=== PATIENT | male | born 1960 | race Caucasian/White ===

== ENCOUNTER 2020-01-22 18:52 | Inpatient (IN) | payer MEDICAID ==
[~2020-01-22] VITALS: Ht 165.1 cm; Wt 87.1 kg
[2020-01-22 19:15] VITALS: BP 122/75
[2020-01-22] MEDS ORDERED: Cefepime HCl 1 GM in NS 55 ML IV ONE (19:15)
[2020-01-22] MEDS ORDERED: Terbutaline 1mg/ml Inj SUBQ ONE (19:15)
[2020-01-22 20:00] VITALS: BP 122/65
[2020-01-22 20:37] LABS: APPEARANCE,URINE CLEAR; BILIRUBIN, URINE NEGATIVE (NEGATIVE); COLOR,URINE PALE YELLOW; GLUCOSE, URINE (UA) NEGATIVE (NEGATIVE); KETONES,URINE NEGATIVE (NEGATIVE); LEUKOCYTE ESTERASE ,URINE NEGATIVE (NEGATIVE); NITRITE,URINE NEGATIVE (NEGATIVE); PH,URINE 5 (4.5-8.0); PROTEIN,URINE NEGATIVE (NEGATIVE); UROBILINOGEN,URINE NORMAL MG/DL (0.0-1.0)
[2020-01-22 20:39] LABS: BASOPHILS % (AUTO) 0.9 % (0.0-2.0); HEMATOCRIT 46.1 % (42.0-52.0); HEMOGLOBIN 15.3 G/DL (14.2-18.0); LYMPHOCYTES % (AUTO) 12.3 % (20.0-45.0); MEAN CORPUSCULAR VOLUME 92 FL (80-99); MONOCYTES % (AUTO) 6.6 % (1.0-10.0); NEUTROPHILS % (AUTO) 78.3 % (45.0-75.0); PLATELET COUNT 154 K/UL (150-450); RED BLOOD COUNT 4.99 M/UL (4.70-6.10); RED CELL DISTRIBUTION WIDTH 12.2 % (11.6-14.8); WHITE BLOOD COUNT 10.3 K/UL (4.8-10.8)
[2020-01-22 21:00] VITALS: BP 114/66
[2020-01-22] MEDS ORDERED: LORazepam Inj 2mg/ml 1ml IV PRN (21:15)
[2020-01-22] MEDS ORDERED: Promethazine/Codeine 5ml UD ORAL PRN (21:15)
[2020-01-22] MEDS ORDERED: Albuterol/Ipratropium 3ml neb HHN PRN (21:15)
[2020-01-22 21:25] LABS: ALANINE AMINOTRANSFERASE 54 U/L (12-78); ALBUMIN 4.2 G/DL (3.4-5.0); ALBUMIN/GLOBULIN RATIO 1.4 (1.0-2.7); ALKALINE PHOSPHATASE 76 U/L (46-116); ANION GAP 12 mmol/L (5-15); ASPARTATE AMINO TRANSFERASE 30 U/L (15-37); BILIRUBIN,TOTAL 0.6 MG/DL (0.2-1.0); BLOOD UREA NITROGEN 27 mg/dL (7-18); CALCIUM 9.3 MG/DL (8.5-10.1); CARBON DIOXIDE 25 MMOL/L (21-32); CHLORIDE 104 MMOL/L (98-107); CKMB 1.6 NG/ML (0.0-3.6); CREATINE KINASE 100 U/L (26-308); POTASSIUM 4.3 MMOL/L (3.5-5.1); SODIUM 141 MMOL/L (136-145)
[2020-01-22 22:00] VITALS: BP 102/64
[2020-01-22] MEDS ORDERED: Piperacillin/Tazobactam 3.375 GM in D5W 55 ML IVPB SCH (22:00)
[2020-01-22 23:00] VITALS: BP 98/64
--- NOTE | 2020-01-22 23:00 | Emergency Room Report ---
History of Present Illness General Chief Complaint: Upper Respiratory Illness Source: Patient, EMS Present Illness HPI Patient is a 59-year-old male who presents after increased cough and difficulty with breathing. Patient was sent in from a nursing facility in [place]. Patient had been having nonproductive cough. Prior history of COPD as well as psychosis. He is from a locked facility. Denies any fever. Allergies: Coded Allergies: No Known Allergies (Unverified , 01/22/20) COVID-19 Screening Contact w/high risk pt: No Recent Travel to affected area: No Experienced COVID-19 symptoms?: No Patient History Past Medical History: see triage record Reviewed Nursing Documentation: PMH: Agreed; PSxH: Agreed Nursing Documentation-PMH Past Medical History: No History, Except For Hx Hypertension: Yes Hx COPD: Yes Review of Systems All Other Systems: negative except mentioned in HPI Physical Exam Vital Signs Date Time Temp Pulse Resp B/P (MAP) Pulse Ox O2 Delivery O2 Flow Rate FiO2 01/22/20 18:51 98.8 112 22 142/80 (100) 92 Room Air Sp02 EP Interpretation: reviewed, normal General Appearance: normal inspection, alert, GCS 15, mild distress Head: atraumatic ENT: normal ENT inspection, hearing grossly normal, normal voice Neck: normal inspection, full range of motion, supple, no bony tend Respiratory: normal inspection, no respiratory distress, no retraction, wheezing Cardiovascular #1: regular rate, rhythm, no edema Gastrointestinal: normal inspection, normal bowel sounds, non tender, soft, no guarding, no hernia Genitourinary: no CVA tenderness Musculoskeletal: normal inspection, back normal, normal range of motion Neurologic: alert, gut sorter III-XII nml as tested, responsive, speech normal, normal inspection Psychiatric: normal inspection, judgement/insight normal, mood/affect normal Skin: no rash Medical Decision Making Diagnostic Impression: Primary Impression: COPD (chronic obstructive pulmonary disease) Additional Impressions: Suspected 2019 novel coronavirus infection Psychosis ER Course Patient present for cough and difficulty with breathing. Differential included but was not limited to anemia, pneumonia, pneumothorax, myocardial infarction, pericardial effusion, congestive heart failure, acidosis because of complexity of patient's case laboratory tests and imaging studies were ordered. Laboratory testing showed normal white blood count as well as lymphopenia. Coronavirus testing was sent. Full protective equipment was used. Dr. Panchito Gill was contacted for inpatient management due to primary care physician. Labs Test 01/22/20 19:45 01/22/20 19:55 White Blood Count 10.3 K/UL (4.8-10.8) Red Blood Count 4.99 M/UL (4.70-6.10) Hemoglobin 15.3 G/DL (14.2-18.0) Hematocrit 46.1 % (42.0-52.0) Mean Corpuscular Volume 92 FL (80-99) Mean Corpuscular Hemoglobin 30.7 PG (27.0-31.0) Mean Corpuscular Hemoglobin Concent 33.2 G/DL (32.0-36.0) Red Cell Distribution Width 12.2 % (11.6-14.8) Platelet Count 154 K/UL (150-450) Mean Platelet Volume 7.1 FL (6.5-10.1) Neutrophils (%) (Auto) 78.3 % (45.0-75.0) Lymphocytes (%) (Auto) 12.3 % (20.0-45.0) Monocytes (%) (Auto) 6.6 % (1.0-10.0) Eosinophils (%) (Auto) 2.0 % (0.0-3.0) Basophils (%) (Auto) 0.9 % (0.0-2.0) Sodium Level 141 MMOL/L (136-145) Potassium Level 4.3 MMOL/L (3.5-5.1) Chloride Level 104 MMOL/L (98-107) Carbon Dioxide Level 25 MMOL/L (21-32) Anion Gap 12 mmol/L (5-15) Blood Urea Nitrogen 27 mg/dL (7-18) Creatinine 1.0 MG/DL (0.55-1.30) Estimat Glomerular Filtration Rate > 60 mL/min (>60) Glucose Level 102 MG/DL (74-106) Lactic Acid Level 0.50 mmol/L (0.4-2.0) Calcium Level 9.3 MG/DL (8.5-10.1) Total Bilirubin 0.6 MG/DL (0.2-1.0) Aspartate Amino Transf (AST/SGOT) 30 U/L (15-37) Alanine Aminotransferase (ALT/SGPT) 54 U/L (12-78) Alkaline Phosphatase 76 U/L (46-116) Total Creatine Kinase 100 U/L (26-308) Creatine Kinase MB 1.6 NG/ML (0.0-3.6) Creatine Kinase MB Relative Index 1.6 Troponin I 0.000 ng/mL (0.000-0.056) Total Protein 7.2 G/DL (6.4-8.2) Albumin 4.2 G/DL (3.4-5.0) Globulin 3.0 g/dL Albumin/Globulin Ratio 1.4 (1.0-2.7) Urine Color Pale yellow Urine Appearance Clear Urine pH 5 (4.5-8.0) Urine Specific [place] 1.005 (1.005-1.035) Urine Protein Negative (NEGATIVE) Urine Glucose (UA) Negative (NEGATIVE) Urine Ketones Negative (NEGATIVE) Urine Blood Negative (NEGATIVE) Urine Nitrite Negative (NEGATIVE) Urine Bilirubin Negative (NEGATIVE) Urine Urobilinogen Normal MG/DL (0.0-1.0) Urine Leukocyte Esterase Negative (NEGATIVE) EKG Diagnostic Results Rate: normal Rhythm: NSR ST Segments: no acute changes Last Vital Signs Date Time Temp Pulse Resp B/P (MAP) Pulse Ox O2 Delivery O2 Flow Rate FiO2 01/22/20 19:15 98.8 104 20 122/75 98 Room Air Status: improved Disposition: ADMITTED INPATIENT Condition: Stable Referrals: Panchito Gill DO (PCP) Shan Rivero MD Jan 22, 2020 23:00
[2020-01-23] VITALS (8 sets, daily range): BP systolic 96–152; BP diastolic 59–100
[2020-01-23] MEDS: Piperacillin/Tazobactam 3.375 GM in D5W 55 ML IVPB SCH ×3 (01:09→14:20)
[2020-01-23] MEDS ORDERED: MIRTAZAPINE15 M3 ORAL (06:46)
[2020-01-23] MEDS ORDERED: LOXAPINE50 MG PO (06:46)
[2020-01-23] MEDS ORDERED: GABAPENTIN300 MG ORAL (06:46)
[2020-01-23] MEDS ORDERED: LISINOPRIL2.5 MG ORAL (06:46)
[2020-01-23] MEDS: Heparin 5000 units/ml inj SUBQ SCH ×2 (09:17→20:49)
[2020-01-23] MEDS: Theophylline ER 100mg ORAL SCH ×2 (09:19→20:48)
--- NOTE | 2020-01-23 12:14 | Diagnostic Imaging Report ---
Indication: Dyspnea Comparison: None A single view chest radiograph was obtained. Findings: Cardiomediastinal appearance is within normal limits for age. The lungs are clear. Pulmonary vascularity is appropriate. The diaphragmatic contour is smooth and costophrenic angles are sharp. No pleural effusions are identified. The bones are unremarkable. Impression: No acute findings
--- NOTE | 2020-01-23 16:56 | Consultation ---
History of Present Illness General Date patient seen: Jan 23, 2020 Time patient seen: 16:50 Chief Complaint: Upper Respiratory Illness Present Illness HPI 59yo gentleman with PMH HTN and COPD. Pt presents from halfway for cough and SOB for a week. Per halfway record, Tmax 101.4, pt was sob, congested, cough. Pt states that his cough is a smoker's cough. But does state that it has worsen over the last week. Denies diarrhea, nausea, vomiting, sore throat, congestion, sob. PMH: HTN, COPD, Schizophrenia FHx: noncontributory SHx: halfway resident. active tobacco use. denies eoth or drugs. Allergies: Coded Allergies: No Known Allergies (Unverified , 01/22/20) Medication History Scheduled Gabapentin* (Gabapentin*), 300 MG ORAL THREE TIMES A DAY, (Reported) Lisinopril* (Lisinopril*), 5 MG ORAL DAILY, (Reported) Mirtazapine* (Mirtazapine*), 30 MG ORAL BEDTIME, (Reported) Miscellaneous Medications Loxapine Succinate (Loxapine), 50 MG PO, (Reported) Patient History Healthcare decision maker N Resuscitation status Advanced Directive on File Review of Systems All Other Systems: negative except mentioned in HPI Physical Exam Last 24 Hour Vital Signs Date Time Temp Pulse Resp B/P (MAP) Pulse Ox O2 Delivery O2 Flow Rate FiO2 01/23/20 15:30 98.8 111 18 152/90 100 Room Air 01/23/20 14:22 111 18 152/90 100 Room Air 01/23/20 12:28 105 18 130/72 100 Room Air 01/23/20 10:16 84 21 128/90 100 Room Air 01/23/20 06:00 98.8 60 16 96/61 100 Room Air 01/23/20 04:00 98.8 60 16 106/67 97 Room Air 01/23/20 02:00 98.8 63 13 105/59 97 Room Air 01/23/20 00:00 98.8 64 13 97/69 97 Room Air 01/22/20 23:00 98.8 66 13 98/64 98 Room Air 01/22/20 22:00 98.8 72 17 102/64 98 Room Air 01/22/20 21:00 98.8 84 14 114/66 98 Room Air 01/22/20 20:00 98.8 99 16 122/65 98 Room Air 01/22/20 19:15 98.8 104 20 122/75 98 Room Air 01/22/20 19:15 104 22 Room Air 01/22/20 18:51 98.8 112 22 142/80 (100) 92 Room Air Laboratory Tests Test 01/22/20 19:45 01/22/20 19:55 White Blood Count 10.3 K/UL (4.8-10.8) Red Blood Count 4.99 M/UL (4.70-6.10) Hemoglobin 15.3 G/DL (14.2-18.0) Hematocrit 46.1 % (42.0-52.0) Mean Corpuscular Volume 92 FL (80-99) Mean Corpuscular Hemoglobin 30.7 PG (27.0-31.0) Mean Corpuscular Hemoglobin Concent 33.2 G/DL (32.0-36.0) Red Cell Distribution Width 12.2 % (11.6-14.8) Platelet Count 154 K/UL (150-450) Mean Platelet Volume 7.1 FL (6.5-10.1) Neutrophils (%) (Auto) 78.3 % (45.0-75.0) H Lymphocytes (%) (Auto) 12.3 % (20.0-45.0) L Monocytes (%) (Auto) 6.6 % (1.0-10.0) Eosinophils (%) (Auto) 2.0 % (0.0-3.0) Basophils (%) (Auto) 0.9 % (0.0-2.0) Sodium Level 141 MMOL/L (136-145) Potassium Level 4.3 MMOL/L (3.5-5.1) Chloride Level 104 MMOL/L (98-107) Carbon Dioxide Level 25 MMOL/L (21-32) Anion Gap 12 mmol/L (5-15) Blood Urea Nitrogen 27 mg/dL (7-18) H Creatinine 1.0 MG/DL (0.55-1.30) Estimat Glomerular Filtration Rate > 60 mL/min (>60) Glucose Level 102 MG/DL (74-106) Lactic Acid Level 0.50 mmol/L (0.4-2.0) Calcium Level 9.3 MG/DL (8.5-10.1) Total Bilirubin 0.6 MG/DL (0.2-1.0) Aspartate Amino Transf (AST/SGOT) 30 U/L (15-37) Alanine Aminotransferase (ALT/SGPT) 54 U/L (12-78) Alkaline Phosphatase 76 U/L (46-116) Total Creatine Kinase 100 U/L (26-308) Creatine Kinase MB 1.6 NG/ML (0.0-3.6) Creatine Kinase MB Relative Index 1.6 Troponin I 0.000 ng/mL (0.000-0.056) Total Protein 7.2 G/DL (6.4-8.2) Albumin 4.2 G/DL (3.4-5.0) Globulin 3.0 g/dL Albumin/Globulin Ratio 1.4 (1.0-2.7) Urine Color Pale yellow Urine Appearance Clear Urine pH 5 (4.5-8.0) Urine Specific [place] 1.005 (1.005-1.035) Urine Protein Negative (NEGATIVE) Urine Glucose (UA) Negative (NEGATIVE) Urine Ketones Negative (NEGATIVE) Urine Blood Negative (NEGATIVE) Urine Nitrite Negative (NEGATIVE) Urine Bilirubin Negative (NEGATIVE) Urine Urobilinogen Normal MG/DL (0.0-1.0) Urine Leukocyte Esterase Negative (NEGATIVE) Microbiology Date/Time Source Procedure Growth Status 01/22/20 19:45 Nasal Nares - Final Complete 01/22/20 19:45 Nasal Nares - Final Complete 01/22/20 19:30 Rectum Received Height (Feet): 5 Height (Inches): 5.00 Weight (Pounds): 140 Medications Current Medications Medications (Trade) Dose Ordered Sig/Alex Route PRN Reason Start Time Stop Time Status Last Admin Dose Admin Albuterol/ Ipratropium (Albuterol/ Ipratropium) 3 ml Q4H PRN HHN dyspnea 01/22/20 21:15 01/27/20 21:14 Dextrose (Dextrose 50%) 25 ml Q30M PRN IV Hypoglycemia 01/22/20 21:15 04/21/20 21:14 Dextrose (Dextrose 50%) 50 ml Q30M PRN IV Hypoglycemia 01/22/20 21:15 04/21/20 21:14 Heparin Sodium (Porcine) (Heparin 5000 units/ml) 5,000 units EVERY 12 HOURS SUBQ 01/23/20 09:00 03/08/20 08:59 01/23/20 09:17 Lorazepam (Ativan 2mg/ml 1ml) 0.5 mg Q4H PRN IV For Anxiety 01/22/20 21:15 01/29/20 21:14 Ondansetron HCl (Zofran) 4 mg Q6H PRN IVP Nausea & Vomiting 01/22/20 21:15 02/21/20 21:14 Piperacillin Sod/ Tazobactam Sod 3.375 gm/Dextrose 110 ml @ 27.5 mls/hr EVERY 8 HOURS IVPB 01/23/20 22:00 01/30/20 21:59 Promethazine HCl/ Codeine (Phenergan with Codeine) 5 ml Q6H PRN ORAL cough 01/22/20 21:15 02/21/20 21:14 Temazepam (Restoril) 15 mg HSPRN PRN ORAL Insomnia 01/22/20 21:15 01/29/20 21:14 Theophylline (Michael-Dur) 100 mg EVERY 12 HOURS ORAL 01/23/20 09:00 04/22/20 08:59 01/23/20 09:19 Objective Narrative Gen: NAD. well nourished. well hydrated HEENT: anicteric sclera. MMM. no oral thrush CV: RRR. S1+S2. Resp: RRR. wheezes. coarse. no crackles. Abd: soft. no TTP. nondistended. no rebound. no guarding. Neuro: alert. follows commands.a nswers questions aprpoppriately. Skin: warm. dry. no rash Psych: nonlabile. affect is mood congruent and appropriate. Assessment/Plan Assessment/Plan: Fever, 101.5 at [place] RA CXR: no acute disease flu swab negative r/o viral pneumonia r/o COVID r/o bacteremia BCx: P Unlikely UTI UA negative COPD HTN Tobacco abuse Schizophrenia Plan: continue zosyn f/u COVID test f/u sputum culture isolation precaution monitor temp and CBC monitor resp status DW RN Thank you for this consult. Dwayne Mejia MD Jan 23, 2020 16:56
[2020-01-23] MEDS: Piperacillin/Tazobactam 3.375 GM in D5W 110 ML IVPB SCH (22:22)
[2020-01-24] MEDS: Piperacillin/Tazobactam 3.375 GM in D5W 110 ML IVPB SCH ×3 (06:18→21:58)
[2020-01-24 08:00] VITALS: BP 151/97
[2020-01-24] MEDS: Theophylline ER 100mg ORAL SCH ×2 (08:36→21:57)
[2020-01-24] MEDS: Heparin 5000 units/ml inj SUBQ SCH ×2 (08:37→21:58)
--- NOTE | 2020-01-24 09:27 | Infectious Diseases Prog Note ---
Assessment/Plan Assessment/Plan Fever, 101.5 at [place] RA CXR: no acute disease flu swab negative r/o viral pneumonia r/o COVID r/o bacteremia BCx: P Unlikely UTI UA negative COPD HTN Tobacco abuse Schizophrenia Plan: continue zosyn #2 01/21 SP cefepime and flagyl f/u COVID test f/u sputum culture isolation precaution monitor temp and CBC monitor resp status DW RN Thank you for this consult. Subjective Allergies: Coded Allergies: No Known Allergies (Unverified , 01/22/20) Subjective Afebrile. on RA. Objective Vital Signs Last 24 Hour Vital Signs Date Time Temp Pulse Resp B/P (MAP) Pulse Ox O2 Delivery O2 Flow Rate FiO2 01/24/20 08:00 98.8 106 19 151/97 (115) 96 01/24/20 04:00 128 01/24/20 04:00 Room Air 01/24/20 00:00 Room Air 01/24/20 00:00 95 01/23/20 20:00 114 01/23/20 20:00 Room Air 01/23/20 16:31 103 01/23/20 16:00 Room Air 01/23/20 16:00 98.4 98 18 140/100 (113) 100 01/23/20 16:00 Room Air 01/23/20 15:30 98.8 111 18 152/90 100 Room Air 01/23/20 14:22 111 18 152/90 100 Room Air 01/23/20 12:28 105 18 130/72 100 Room Air 01/23/20 10:16 84 21 128/90 100 Room Air Height (Feet): 5 Height (Inches): 5.00 Weight (Pounds): 140 Objective Gen: NAD. well nourished. well hydrated CV: RRR. S1+S2. Resp: RRR. wheezes. coarse. no crackles. Abd: soft. no TTP. Skin: warm. dry. no rash Microbiology Date/Time Source Procedure Growth Status 01/22/20 19:45 Blood Blood Culture - Preliminary NO GROWTH AFTER 24 HOURS Resulted 01/22/20 19:30 Blood Blood Culture - Preliminary NO GROWTH AFTER 24 HOURS Resulted 01/22/20 19:45 Nasal Nares - Final Complete 01/22/20 19:45 Nasal Nares - Final Complete 01/22/20 19:30 Rectum Received Current Medications Medications (Trade) Dose Ordered Sig/Alex Route PRN Reason Start Time Stop Time Status Last Admin Dose Admin Dextrose (Dextrose 50%) 25 ml Q30M PRN IV Hypoglycemia 01/22/20 21:15 04/21/20 21:14 Dextrose (Dextrose 50%) 50 ml Q30M PRN IV Hypoglycemia 01/22/20 21:15 04/21/20 21:14 Heparin Sodium (Porcine) (Heparin 5000 units/ml) 5,000 units EVERY 12 HOURS SUBQ 01/23/20 09:00 03/08/20 08:59 01/24/20 08:37 Lorazepam (Ativan 2mg/ml 1ml) 0.5 mg Q4H PRN IV For Anxiety 01/22/20 21:15 01/29/20 21:14 Ondansetron HCl (Zofran) 4 mg Q6H PRN IVP Nausea & Vomiting 01/22/20 21:15 02/21/20 21:14 Piperacillin Sod/ Tazobactam Sod 3.375 gm/Dextrose 110 ml @ 27.5 mls/hr EVERY 8 HOURS IVPB 01/23/20 22:00 01/30/20 21:59 01/24/20 06:18 Promethazine HCl/ Codeine (Phenergan with Codeine) 5 ml Q6H PRN ORAL cough 01/22/20 21:15 02/21/20 21:14 Temazepam (Restoril) 15 mg HSPRN PRN ORAL Insomnia 01/22/20 21:15 01/29/20 21:14 Theophylline (Michael-Dur) 100 mg EVERY 12 HOURS ORAL 01/23/20 09:00 04/22/20 08:59 01/24/20 08:36 Dwayne Mejia MD Jan 24, 2020 09:27
--- NOTE | 2020-01-24 10:43 | Consultation ---
History of Present Illness General Date patient seen: Jan 23, 2020 Chief Complaint: Upper Respiratory Illness Present Illness HPI 59-year-old male with hx of COPD, HTN, Major Depression, from an assisted living presented with CC of cough and difficulty with breathing. Patient was sent in from a nursing facility in [place]. Patient had been having nonproductive cough. Pt is admitted to rule out COVID. Allergies: Coded Allergies: No Known Allergies (Unverified , 01/22/20) Medication History Scheduled Gabapentin* (Gabapentin*), 300 MG ORAL THREE TIMES A DAY, (Reported) Lisinopril* (Lisinopril*), 5 MG ORAL DAILY, (Reported) Mirtazapine* (Mirtazapine*), 30 MG ORAL BEDTIME, (Reported) Miscellaneous Medications Loxapine Succinate (Loxapine), 50 MG PO, (Reported) Patient History Healthcare decision maker N Resuscitation status Full Code Advanced Directive on File Past Medical/Surgical History Past Medical/Surgical History: (1) Major depression (2) Hypertensive heart disease (3) COPD (chronic obstructive pulmonary disease) (4) Polyneuropathy Review of Systems All Other Systems: negative except mentioned in HPI Physical Exam General Appearance: WD/WN, no apparent distress Lines, tubes and drains: peripheral HEENT: normocephalic, anicteric Neck: non-tender, normal alignment, supple Respiratory/Chest: chest wall non-tender, lungs clear, decreased breath sounds Breasts: no masses Cardiovascular/Chest: normal peripheral pulses Abdomen: normal bowel sounds Genitourinary/Rectal: normal genital exam Last 24 Hour Vital Signs Date Time Temp Pulse Resp B/P (MAP) Pulse Ox O2 Delivery O2 Flow Rate FiO2 01/24/20 08:00 98.8 106 19 151/97 (115) 96 01/24/20 04:00 128 01/24/20 04:00 Room Air 01/24/20 00:00 Room Air 01/24/20 00:00 95 01/23/20 20:00 114 01/23/20 20:00 Room Air 01/23/20 16:31 103 01/23/20 16:00 Room Air 01/23/20 16:00 98.4 98 18 140/100 (113) 100 01/23/20 16:00 Room Air 01/23/20 15:30 98.8 111 18 152/90 100 Room Air 01/23/20 14:22 111 18 152/90 100 Room Air 01/23/20 12:28 105 18 130/72 100 Room Air Intake and Output 01/23/20 01/24/20 19:00 07:00 Intake Total 500 ml 110.0 ml Output Total 300 ml 500 ml Balance 200 ml -390.0 ml Intake Oral 500 ml IV Total 110.0 ml Output Urine Total 300 ml 500 ml # Voids 1 Height (Feet): 5 Height (Inches): 5.00 Weight (Pounds): 140 Medications Current Medications Medications (Trade) Dose Ordered Sig/Alex Route PRN Reason Start Time Stop Time Status Last Admin Dose Admin Dextrose (Dextrose 50%) 25 ml Q30M PRN IV Hypoglycemia 01/22/20 21:15 04/21/20 21:14 Dextrose (Dextrose 50%) 50 ml Q30M PRN IV Hypoglycemia 01/22/20 21:15 04/21/20 21:14 Heparin Sodium (Porcine) (Heparin 5000 units/ml) 5,000 units EVERY 12 HOURS SUBQ 01/23/20 09:00 03/08/20 08:59 01/24/20 08:37 Lorazepam (Ativan 2mg/ml 1ml) 0.5 mg Q4H PRN IV For Anxiety 01/22/20 21:15 01/29/20 21:14 Ondansetron HCl (Zofran) 4 mg Q6H PRN IVP Nausea & Vomiting 01/22/20 21:15 02/21/20 21:14 Piperacillin Sod/ Tazobactam Sod 3.375 gm/Dextrose 110 ml @ 27.5 mls/hr EVERY 8 HOURS IVPB 01/23/20 22:00 01/30/20 21:59 01/24/20 06:18 Promethazine HCl/ Codeine (Phenergan with Codeine) 5 ml Q6H PRN ORAL cough 01/22/20 21:15 02/21/20 21:14 Temazepam (Restoril) 15 mg HSPRN PRN ORAL Insomnia 01/22/20 21:15 01/29/20 21:14 Theophylline (Michael-Dur) 100 mg EVERY 12 HOURS ORAL 01/23/20 09:00 04/22/20 08:59 01/24/20 08:36 Assessment/Plan Problem List: (1) Viral respiratory infection ICD Codes: J98.8 - Other specified respiratory disorders; B97.89 - Other viral agents as the cause of diseases classified elsewhere SNOMED: 236945819 (2) Suspected 2019 novel coronavirus infection ICD Codes: R68.89 - Other general symptoms and signs SNOMED: 537557735 (3) COPD (chronic obstructive pulmonary disease) ICD Codes: J44.9 - Chronic obstructive pulmonary disease, unspecified SNOMED: 70356423 (4) Hypertensive heart disease ICD Codes: I11.9 - Hypertensive heart disease without heart failure SNOMED: 53799975 (5) Polyneuropathy ICD Codes: G62.9 - Polyneuropathy, unspecified SNOMED: 26872700 (6) Psychosis ICD Codes: F29 - Unspecified psychosis not due to a substance or known physiological condition SNOMED: 22535952 (7) Major depression ICD Codes: F32.9 - Major depressive disorder, single episode, unspecified SNOMED: 310017198 Assessment/Plan: check sputum throat swab symptomatic treatment antitussives respiratory isolation dvt prophylaxis resume psychotic meds. Olimpia Beck MD Jan 24, 2020 10:43
--- NOTE | 2020-01-24 10:50 | Pulmonology Progress Note ---
Assessment/Plan Problems: (1) Viral respiratory infection (2) Suspected 2019 novel coronavirus infection (3) COPD (chronic obstructive pulmonary disease) (4) Hypertensive heart disease (5) Polyneuropathy (6) Psychosis (7) Major depression Assessment/Plan doing better check sputum throat swab symptomatic treatment antitussives respiratory isolation dvt prophylaxis resume psychotic meds. Subjective ROS Limited/Unobtainable: Yes Constitutional: Reports: no symptoms HEENT: Repors: no symptoms Respiratory: Reports: no symptoms Allergies: Coded Allergies: No Known Allergies (Unverified , 01/22/20) Objective Last 24 Hour Vital Signs Date Time Temp Pulse Resp B/P (MAP) Pulse Ox O2 Delivery O2 Flow Rate FiO2 01/24/20 08:00 98.8 106 19 151/97 (115) 96 01/24/20 04:00 128 01/24/20 04:00 Room Air 01/24/20 00:00 Room Air 01/24/20 00:00 95 01/23/20 20:00 114 01/23/20 20:00 Room Air 01/23/20 16:31 103 01/23/20 16:00 Room Air 01/23/20 16:00 98.4 98 18 140/100 (113) 100 01/23/20 16:00 Room Air 01/23/20 15:30 98.8 111 18 152/90 100 Room Air 01/23/20 14:22 111 18 152/90 100 Room Air 01/23/20 12:28 105 18 130/72 100 Room Air Intake and Output 01/23/20 01/24/20 19:00 07:00 Intake Total 500 ml 110.0 ml Output Total 300 ml 500 ml Balance 200 ml -390.0 ml Intake Oral 500 ml IV Total 110.0 ml Output Urine Total 300 ml 500 ml # Voids 1 General Appearance: WD/WN HEENT: normocephalic, atraumatic Respiratory/Chest: chest wall non-tender, lungs clear Cardiovascular: normal peripheral pulses, normal rate Abdomen: normal bowel sounds, soft, non tender Genitourinary: normal external genitalia Extremities: no clubbing 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: stopperer assembler II-XII grossly normal, no motor/sensory deficits Lymphatic: no neck adenopathy Microbiology Date/Time Source Procedure Growth Status 01/22/20 19:45 Blood Blood Culture - Preliminary NO GROWTH AFTER 24 HOURS Resulted 01/22/20 19:30 Blood Blood Culture - Preliminary NO GROWTH AFTER 24 HOURS Resulted 01/22/20 19:45 Nasal Nares - Final Complete 01/22/20 19:45 Nasal Nares - Final Complete 01/22/20 19:30 Rectum Received Current Medications Medications (Trade) Dose Ordered Sig/Alex Route PRN Reason Start Time Stop Time Status Last Admin Dose Admin Dextrose (Dextrose 50%) 25 ml Q30M PRN IV Hypoglycemia 01/22/20 21:15 04/21/20 21:14 Dextrose (Dextrose 50%) 50 ml Q30M PRN IV Hypoglycemia 01/22/20 21:15 04/21/20 21:14 Heparin Sodium (Porcine) (Heparin 5000 units/ml) 5,000 units EVERY 12 HOURS SUBQ 01/23/20 09:00 03/08/20 08:59 01/24/20 08:37 Lorazepam (Ativan 2mg/ml 1ml) 0.5 mg Q4H PRN IV For Anxiety 01/22/20 21:15 01/29/20 21:14 Ondansetron HCl (Zofran) 4 mg Q6H PRN IVP Nausea & Vomiting 01/22/20 21:15 02/21/20 21:14 Piperacillin Sod/ Tazobactam Sod 3.375 gm/Dextrose 110 ml @ 27.5 mls/hr EVERY 8 HOURS IVPB 01/23/20 22:00 01/30/20 21:59 01/24/20 06:18 Promethazine HCl/ Codeine (Phenergan with Codeine) 5 ml Q6H PRN ORAL cough 01/22/20 21:15 02/21/20 21:14 Temazepam (Restoril) 15 mg HSPRN PRN ORAL Insomnia 01/22/20 21:15 01/29/20 21:14 Theophylline (Michael-Dur) 100 mg EVERY 12 HOURS ORAL 01/23/20 09:00 04/22/20 08:59 01/24/20 08:36 Olimpia Beck MD Jan 24, 2020 10:50
[2020-01-24 16:00] VITALS: BP 146/72
--- NOTE | 2020-01-24 17:29 | History and Physical Report ---
DATE OF ADMISSION: 01/22/2020 DATE AND TIME SEEN: On 01/24/2020 at 12 noon. CONSULTANTS: 1. Yan Garalnd MD 2. Olimpia Beck MD CHIEF COMPLAINT: COPD exacerbation, fever, cough, possible suspect COVID. BRIEF HISTORY: This is a 59-year-old male from [facility], who presents with two-day increased cough, low-grade fever, and shortness of breath. He came to [place], diagnosed with the above, tested for COVID, so he is COVID pending and admitted to [facility] for further care. Currently, calm in bed, confused, not talking much. REVIEW OF SYSTEMS: Unavailable. PAST MEDICAL HISTORY: COPD, hypertension, neuropathy, weakness, psychosis. PAST SURGICAL HISTORY: Unknown. ALLERGIES: Denied. MEDICATIONS: Include Zosyn, heparin, theophylline, lorazepam, Zofran, promethazine, and temazepam. SOCIAL HISTORY: Unable to obtain secondary to the patient's condition . PHYSICAL EXAMINATION: GENERAL: Confused in bed, not responding to questions, calm in bed. VITAL SIGNS: Temperature 98 degrees, pulse 106, respirations 19, blood pressure 151/97. HEENT: Normocephalic and atraumatic. Anicteric sclerae. NECK: Trachea midline. CARDIOVASCULAR: No peripheral edema. PULMONARY: Breathing comfortably on room air. ABDOMEN: No apparent wounds noted. EXTREMITIES: No cyanosis or clubbing. LABORATORY DATA: Labs at this time show CBC is normal. BMP shows BUN 27. Urinalysis is negative. ASSESSMENT: COPD exacerbation, fever, cough, shortness of breath, pending COVID result, hypertension, neuropathy, weakness, and psychosis. PLAN: O2 and pulmonary treatment as needed. Antibiotics per Infectious Disease. Blood pressure and pain control. Resume home medications. PT and dietary evaluation. CBC and BMP in the morning. We will continue to follow this patient. Panchito Gill D.O. DR: WALLY JOB#: [id number] CC:
--- NOTE | 2020-01-24 17:34 | Consultation ---
History of Present Illness General Date patient seen: Jan 24, 2020 Reason for Hospitalization: Upper Respiratory Illness Present Illness HPI 59M here for evaluation of respiratory illness covid eval. noted to have abnormal labs, low bmi, and decubitus ulcer. surgery called to evaluate and assist with care. Allergies: Coded Allergies: No Known Allergies (Unverified , 01/22/20) COVID-19 Screening Contact w/high risk pt: No Recent Travel to affected area: No Experienced COVID-19 symptoms?: No Medication History Scheduled Gabapentin* (Gabapentin*), 300 MG ORAL THREE TIMES A DAY, (Reported) Lisinopril* (Lisinopril*), 5 MG ORAL DAILY, (Reported) Mirtazapine* (Mirtazapine*), 30 MG ORAL BEDTIME, (Reported) Miscellaneous Medications Loxapine Succinate (Loxapine), 50 MG PO, (Reported) Patient History Limited by: medical condition History Provided By: Medical Record, PMD Healthcare decision maker N Resuscitation status Full Code Advanced Directive on File Past Medical/Surgical History Past Medical/Surgical History: (1) Hypertensive heart disease (2) COPD (chronic obstructive pulmonary disease) (3) Polyneuropathy (4) Psychosis (5) Suspected 2019 novel coronavirus infection (6) Viral respiratory infection (7) Major depression Review of Systems Review of Symptoms General ROS: no weight loss or fever Psychological ROS: no depression or mood changes, no memory loss Ophthalmic ROS: no visual changes or eye irritation ENT ROS: no nasal congestion, hearing loss, dizziness Allergy and Immunology ROS: no allergic symptoms or urticaria Hematological and Lymphatic ROS: no swollen glands, unusual bleeding or bruising Endocrine ROS: no polyuria, polydipsia, weight changes, temperature intolerance Respiratory ROS: no cough, shortness of breath, or wheezing Cardiovascular ROS: no chest pain or dyspnea on exertion Gastrointestinal ROS: denies abdominal pain, bright red blood in stool. Musculoskeletal ROS: no myalgias or arthralgias Neurological ROS: no TIA or stroke symptoms Dermatological ROS: no new or changing skin lesions, rashes or pruritis Physical Exam Physical Exam General appearance: alert, cooperative, no distress, appears stated age Head: Normocephalic, without obvious abnormality, atraumatic Eyes: conjunctivae/corneas clear. PERRL, EOM's intact. Fundi benign Throat: Lips, mucosa, and tongue normal. Teeth and gums normal Neck: supple, symmetrical, trachea midline, no adenopathy, thyroid: not enlarged, symmetric, no tenderness/mass/nodules, no carotid bruit and no JVD Lungs: clear to auscultation bilaterally Heart: regular rate and rhythm, S1, S2 normal, no murmur, click, rub or gallop Abdomen: soft, non-tender. Bowel sounds normal. No masses, no organomegaly Extremities: extremities normal, atraumatic, no cyanosis or edema Pulses: 2+ and symmetric Skin: Skin color, texture, turgor normal. No rashes or lesions Neurologic: Grossly normal Last 24 Hour Vital Signs Date Time Temp Pulse Resp B/P (MAP) Pulse Ox O2 Delivery O2 Flow Rate FiO2 01/24/20 12:00 Room Air 01/24/20 08:00 98.8 106 19 151/97 (115) 96 01/24/20 08:00 Room Air 01/24/20 07:56 104 01/24/20 04:00 128 01/24/20 04:00 Room Air 01/24/20 00:00 Room Air 01/24/20 00:00 95 01/23/20 20:00 114 01/23/20 20:00 Room Air Intake and Output 01/23/20 01/24/20 19:00 07:00 Intake Total 500 ml 110.0 ml Output Total 300 ml 500 ml Balance 200 ml -390.0 ml Intake Oral 500 ml IV Total 110.0 ml Output Urine Total 300 ml 500 ml # Voids 1 Height (Feet): 5 Height (Inches): 5.00 Weight (Pounds): 140 Medications Current Medications Medications (Trade) Dose Ordered Sig/Alex Route PRN Reason Start Time Stop Time Status Last Admin Dose Admin Dextrose (Dextrose 50%) 25 ml Q30M PRN IV Hypoglycemia 01/22/20 21:15 04/21/20 21:14 Dextrose (Dextrose 50%) 50 ml Q30M PRN IV Hypoglycemia 01/22/20 21:15 04/21/20 21:14 Heparin Sodium (Porcine) (Heparin 5000 units/ml) 5,000 units EVERY 12 HOURS SUBQ 01/23/20 09:00 03/08/20 08:59 01/24/20 08:37 Lorazepam (Ativan 2mg/ml 1ml) 0.5 mg Q4H PRN IV For Anxiety 01/22/20 21:15 01/29/20 21:14 Ondansetron HCl (Zofran) 4 mg Q6H PRN IVP Nausea & Vomiting 01/22/20 21:15 02/21/20 21:14 Piperacillin Sod/ Tazobactam Sod 3.375 gm/Dextrose 110 ml @ 27.5 mls/hr EVERY 8 HOURS IVPB 01/23/20 22:00 01/30/20 21:59 01/24/20 17:00 Promethazine HCl/ Codeine (Phenergan with Codeine) 5 ml Q6H PRN ORAL cough 01/22/20 21:15 02/21/20 21:14 Temazepam (Restoril) 15 mg HSPRN PRN ORAL Insomnia 01/22/20 21:15 01/29/20 21:14 Theophylline (Michael-Dur) 100 mg EVERY 12 HOURS ORAL 01/23/20 09:00 04/22/20 08:59 01/24/20 08:36 Assessment/Plan Problem List: (1) Decubitus skin ulcer Assessment & Plan: Pt presented on admission with resolving skin lesionof unknown etiology medial R foot.[place] epithelial at base of wound (L)75%,25% moist and viable area. No odor or exudate noted. N0 erythema or fluctuance periwound. Non-blanching erythema without induration or fluctuance clefts of R and L Buttocks and sacrum.Additional Incontinence associated dermatitis noted to R and L buttocks perianal and scrotum. Erythema with scattered satellite lesions noted. Both heels are boggy with non-blanching erythema. Tx.Plan: Apply Moisture Barrier Paste to Sacrum,R and L buttocks. Cover Sacrum with Optifoam drsg. Change every 3 days and prn. Apply Cavilon Skin Barrier to Both heels. Cover each heel with Optifoam drsg. Change every 7 days and prn. Apply Betadine to medial R foot . Cover with Optifoam drsg. Change very 3 days and prn. Reposition at least every 2hours or as tolerated. Off-load heels with Pillow. APM/BOO Mattress overlay. DAILY ESTIMATED NEEDS: Needs based on Pulmonary 72.3kg abw 25-30 kcals/kg 7052-7137 total kcals 1.25-1.5 g protein/kg 90-108 g total protein 25-30 mL/kg 3350-5321 total fluid mLs NUTRITION DIAGNOSIS: Increased kcal and pro needs r/t wound healing as evidenced by R foot unstageable wound. (CURRENT DIET: Regular) PO DIET RECOMMENDATIONS: Rec diet change -->> LOW NA diet/ texture as tolerated. ADDITIONAL RECOMMENDATIONS: 1) Per SNF: 68inches tall, weighs 174lbs 2) Diet change as above, monitor po intake 3) Wound care (f/up w/ WC eval): add TUNG BID + Vit C 250mg daily 4) F/up w/ H&P ICD Codes: L89.90 - Pressure ulcer of unspecified site, unspecified stage SNOMED: 161601321 (2) Hypertensive heart disease ICD Codes: I11.9 - Hypertensive heart disease without heart failure SNOMED: 96492379 (3) COPD (chronic obstructive pulmonary disease) ICD Codes: J44.9 - Chronic obstructive pulmonary disease, unspecified SNOMED: 39033986 (4) Polyneuropathy ICD Codes: G62.9 - Polyneuropathy, unspecified SNOMED: 94053278 (5) Psychosis ICD Codes: F29 - Unspecified psychosis not due to a substance or known physiological condition SNOMED: 25043075 (6) Suspected 2019 novel coronavirus infection Assessment & Plan: pending test ICD Codes: R68.89 - Other general symptoms and signs SNOMED: 153280270 (7) Viral respiratory infection ICD Codes: J98.8 - Other specified respiratory disorders; B97.89 - Other viral agents as the cause of diseases classified elsewhere SNOMED: 973126451 (8) Major depression ICD Codes: F32.9 - Major depressive disorder, single episode, unspecified SNOMED: 926388151 Juan Michael Jan 24, 2020 17:34
[2020-01-24 20:00] VITALS: BP 145/99
[2020-01-25] VITALS: BP 142/92
[2020-01-25 04:00] VITALS: BP 150/96
[2020-01-25 05:28] LABS: BASOPHILS % (AUTO) 0.9 % (0.0-2.0); EOSINOPHILS % (AUTO) 4.4 % (0.0-3.0); HEMATOCRIT 44.7 % (42.0-52.0); LYMPHOCYTES % (AUTO) 18.9 % (20.0-45.0); MEAN CORPUSCULAR VOLUME 88 FL (80-99); MONOCYTES % (AUTO) 8.9 % (1.0-10.0); PLATELET COUNT 160 K/UL (150-450); RED BLOOD COUNT 5.07 M/UL (4.70-6.10); RED CELL DISTRIBUTION WIDTH 10.9 % (11.6-14.8)
[2020-01-25 05:56] LABS: ANION GAP 11 mmol/L (5-15); BLOOD UREA NITROGEN 22 mg/dL (7-18); CALCIUM 9.3 MG/DL (8.5-10.1); CARBON DIOXIDE 25 MMOL/L (21-32); CHLORIDE 100 MMOL/L (98-107); POTASSIUM 3.9 MMOL/L (3.5-5.1); SODIUM 136 MMOL/L (136-145)
[2020-01-25] MEDS: Piperacillin/Tazobactam 3.375 GM in D5W 110 ML IVPB SCH ×3 (06:44→22:08)
[2020-01-25 08:00] VITALS: BP 116/80
--- NOTE | 2020-01-25 09:05 | General Progress Note ---
Assessment/Plan Problem List: (1) Hypertensive heart disease ICD Codes: I11.9 - Hypertensive heart disease without heart failure SNOMED: 62476452 (2) COPD (chronic obstructive pulmonary disease) ICD Codes: J44.9 - Chronic obstructive pulmonary disease, unspecified SNOMED: 36042000 (3) Psychosis ICD Codes: F29 - Unspecified psychosis not due to a substance or known physiological condition SNOMED: 79926102 (4) Suspected 2019 novel coronavirus infection ICD Codes: R68.89 - Other general symptoms and signs SNOMED: 504303038 Status: unchanged Assessment/Plan: o2 pulm tx abx pt diet cbc bmp am Subjective Constitutional: Reports: weakness Allergies: Coded Allergies: No Known Allergies (Unverified , 01/22/20) All Systems: reviewed and negative except above Subjective sleepy calm Objective Last 24 Hour Vital Signs Date Time Temp Pulse Resp B/P (MAP) Pulse Ox O2 Delivery O2 Flow Rate FiO2 01/25/20 04:00 Room Air 01/25/20 04:00 98.8 87 20 150/96 (114) 99 01/25/20 04:00 98 01/25/20 00:00 99.1 91 20 142/92 (109) 99 01/25/20 00:00 86 01/25/20 00:00 Room Air 01/24/20 20:00 Room Air 01/24/20 20:00 99.5 95 20 145/99 (114) 98 01/24/20 20:00 126 01/24/20 16:55 114 01/24/20 16:00 Room Air 01/24/20 16:00 97.6 110 21 146/72 (96) 94 01/24/20 12:00 Room Air 01/24/20 11:55 129 Intake and Output 01/24/20 01/25/20 18:59 06:59 Intake Total 520 ml 110.0 ml Output Total 600 ml 600 ml Balance -80 ml -490.0 ml Intake Oral 520 ml IV Total 110.0 ml Output Urine Total 600 ml 600 ml # Voids 1 # Bowel Movements 1 1 Laboratory Tests 01/25/20 04:30: White Blood Count 12.0H, Red Blood Count 5.07, Hemoglobin 16.0, Hematocrit 44.7 , Mean Corpuscular Volume 88, Mean Corpuscular Hemoglobin 31.5H, Mean Corpuscular Hemoglobin Concent 35.7, Red Cell Distribution Width 10.9L, Platelet Count 160, Mean Platelet Volume 6.4L, Neutrophils (%) (Auto) 67.0, Lymphocytes (%) (Auto) 18.9L, Monocytes (%) (Auto) 8.9, Eosinophils (%) (Auto) 4.4H, Basophils (%) (Auto) 0.9, Sodium Level 136, Potassium Level 3.9, Chloride Level 100, Carbon Dioxide Level 25, Anion Gap 11, Blood Urea Nitrogen 22H, Creatinine 1.0, Estimat Glomerular Filtration Rate > 60, Glucose Level 95, Calcium Level 9.3 Height (Feet): 5 Height (Inches): 5.00 Weight (Pounds): 128 General Appearance: lethargic EENT: normal ENT inspection Neck: normal alignment Cardiovascular: normal rate, regular rhythm Respiratory/Chest: no respiratory distress Extremities: normal inspection Skin: normal pigmentation Panchito Gill DO Jan 25, 2020 09:05
[2020-01-25] MEDS: Theophylline ER 100mg ORAL SCH ×2 (10:23→22:07)
[2020-01-25] MEDS: Heparin 5000 units/ml inj SUBQ SCH ×2 (10:25→22:10)
--- NOTE | 2020-01-25 11:04 | Surgery Progress Note ---
Surgery Progress Note Subjective Additional Comments no acute events comfortable stable somewhat responsive leukocytosis Objective Last 24 Hour Vital Signs Date Time Temp Pulse Resp B/P (MAP) Pulse Ox O2 Delivery O2 Flow Rate FiO2 01/25/20 08:00 97.9 89 20 116/80 (92) 98 01/25/20 08:00 73 01/25/20 04:00 Room Air 01/25/20 04:00 98.8 87 20 150/96 (114) 99 01/25/20 04:00 98 01/25/20 00:00 99.1 91 20 142/92 (109) 99 01/25/20 00:00 86 01/25/20 00:00 Room Air 01/24/20 20:00 Room Air 01/24/20 20:00 99.5 95 20 145/99 (114) 98 01/24/20 20:00 126 01/24/20 16:55 114 01/24/20 16:00 Room Air 01/24/20 16:00 97.6 110 21 146/72 (96) 94 01/24/20 12:00 Room Air 01/24/20 11:55 129 I&O Intake and Output 01/24/20 01/25/20 19:00 07:00 Intake Total 520 ml 110.0 ml Output Total 600 ml 600 ml Balance -80 ml -490.0 ml Intake Oral 520 ml IV Total 110.0 ml Output Urine Total 600 ml 600 ml # Voids 1 # Bowel Movements 1 1 Dressing: dry Wound: clean Cardiovascular: RSR Respiratory: clear Abdomen: soft, non-tender, present bowel sounds Extremities: no cyanosis Laboratory Tests Test 01/25/20 04:30 White Blood Count 12.0 K/UL (4.8-10.8) H Red Blood Count 5.07 M/UL (4.70-6.10) Hemoglobin 16.0 G/DL (14.2-18.0) Hematocrit 44.7 % (42.0-52.0) Mean Corpuscular Volume 88 FL (80-99) Mean Corpuscular Hemoglobin 31.5 PG (27.0-31.0) H Mean Corpuscular Hemoglobin Concent 35.7 G/DL (32.0-36.0) Red Cell Distribution Width 10.9 % (11.6-14.8) L Platelet Count 160 K/UL (150-450) Mean Platelet Volume 6.4 FL (6.5-10.1) L Neutrophils (%) (Auto) 67.0 % (45.0-75.0) Lymphocytes (%) (Auto) 18.9 % (20.0-45.0) L Monocytes (%) (Auto) 8.9 % (1.0-10.0) Eosinophils (%) (Auto) 4.4 % (0.0-3.0) H Basophils (%) (Auto) 0.9 % (0.0-2.0) Sodium Level 136 MMOL/L (136-145) Potassium Level 3.9 MMOL/L (3.5-5.1) Chloride Level 100 MMOL/L (98-107) Carbon Dioxide Level 25 MMOL/L (21-32) Anion Gap 11 mmol/L (5-15) Blood Urea Nitrogen 22 mg/dL (7-18) H Creatinine 1.0 MG/DL (0.55-1.30) Estimat Glomerular Filtration Rate > 60 mL/min (>60) Glucose Level 95 MG/DL (74-106) Calcium Level 9.3 MG/DL (8.5-10.1) Plan Problems: (1) Decubitus skin ulcer Assessment & Plan: Pt presented on admission with resolving skin lesionof unknown etiology medial R foot.[place] epithelial at base of wound (L)75%,25% moist and viable area. No odor or exudate noted. N0 erythema or fluctuance periwound. Non-blanching erythema without induration or fluctuance clefts of R and L Buttocks and sacrum.Additional Incontinence associated dermatitis noted to R and L buttocks perianal and scrotum. Erythema with scattered satellite lesions noted. Both heels are boggy with non-blanching erythema. Tx.Plan: Apply Moisture Barrier Paste to Sacrum,R and L buttocks. Cover Sacrum with Optifoam drsg. Change every 3 days and prn. Apply Cavilon Skin Barrier to Both heels. Cover each heel with Optifoam drsg. Change every 7 days and prn. Apply Betadine to medial R foot . Cover with Optifoam drsg. Change very 3 days and prn. Reposition at least every 2hours or as tolerated. Off-load heels with Pillow. APM/BOO Mattress overlay. DAILY ESTIMATED NEEDS: Needs based on Pulmonary 72.3kg abw 25-30 kcals/kg 1255-7099 total kcals 1.25-1.5 g protein/kg 90-108 g total protein 25-30 mL/kg 8967-0416 total fluid mLs NUTRITION DIAGNOSIS: Increased kcal and pro needs r/t wound healing as evidenced by R foot unstageable wound. (CURRENT DIET: Regular) PO DIET RECOMMENDATIONS: Rec diet change -->> LOW NA diet/ texture as tolerated. ADDITIONAL RECOMMENDATIONS: 1) Per SNF: 68inches tall, weighs 174lbs 2) Diet change as above, monitor po intake 3) Wound care (f/up w/ WC eval): add TUNG BID + Vit C 250mg daily 4) F/up w/ H&P (2) Hypertensive heart disease (3) COPD (chronic obstructive pulmonary disease) (4) Polyneuropathy (5) Psychosis (6) Suspected 2019 novel coronavirus infection Assessment & Plan: pending test (7) Viral respiratory infection (8) Major depression Juan Michael Jan 25, 2020 11:04
--- NOTE | 2020-01-25 11:45 | Pulmonology Progress Note ---
Assessment/Plan Problems: (1) Viral respiratory infection (2) Suspected 2019 novel coronavirus infection (3) COPD (chronic obstructive pulmonary disease) (4) Hypertensive heart disease (5) Polyneuropathy (6) Psychosis (7) Major depression Assessment/Plan wbc higher slightly higher doing better check sputum throat swab symptomatic treatment antitussives respiratory isolation dvt prophylaxis resume psychotic meds. Subjective ROS Limited/Unobtainable: No Constitutional: Reports: no symptoms HEENT: Repors: no symptoms Respiratory: Reports: no symptoms Allergies: Coded Allergies: No Known Allergies (Unverified , 01/22/20) Objective Last 24 Hour Vital Signs Date Time Temp Pulse Resp B/P (MAP) Pulse Ox O2 Delivery O2 Flow Rate FiO2 01/25/20 08:00 97.9 89 20 116/80 (92) 98 01/25/20 08:00 Room Air 01/25/20 08:00 73 01/25/20 04:00 Room Air 01/25/20 04:00 98.8 87 20 150/96 (114) 99 01/25/20 04:00 98 01/25/20 00:00 99.1 91 20 142/92 (109) 99 01/25/20 00:00 86 01/25/20 00:00 Room Air 01/24/20 20:00 Room Air 01/24/20 20:00 99.5 95 20 145/99 (114) 98 01/24/20 20:00 126 01/24/20 16:55 114 01/24/20 16:00 Room Air 01/24/20 16:00 97.6 110 21 146/72 (96) 94 01/24/20 12:00 Room Air 01/24/20 11:55 129 Intake and Output 01/24/20 01/25/20 18:59 06:59 Intake Total 520 ml 110.0 ml Output Total 600 ml 600 ml Balance -80 ml -490.0 ml Intake Oral 520 ml IV Total 110.0 ml Output Urine Total 600 ml 600 ml # Voids 1 # Bowel Movements 1 1 Objective General Appearance: WD/WN HEENT: normocephalic, atraumatic Respiratory/Chest: chest wall non-tender, lungs clear Cardiovascular: normal peripheral pulses, normal rate Abdomen: normal bowel sounds, soft, non tender Genitourinary: normal external genitalia Extremities: no clubbing 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: physician relations representative II-XII grossly normal, no motor/sensory deficits Lymphatic: no neck adenopathy Microbiology Date/Time Source Procedure Growth Status 01/22/20 19:45 Blood Blood Culture - Preliminary NO GROWTH AFTER 48 HOURS Resulted 01/22/20 19:30 Blood Blood Culture - Preliminary NO GROWTH AFTER 48 HOURS Resulted 01/22/20 20:00 Nasopharynx Coronavirus COVID-19 PCR ([facility]) - Final Complete 01/22/20 19:45 Nasal Nares - Final Complete 01/22/20 19:45 Nasal Nares - Final Complete 01/22/20 19:30 Nasal Nares MRSA Culture - Final NO METHICILLIN RESISTANT STAPH AUREUS... Complete 01/22/20 19:30 Rectum VRE Culture - Final NO VANCOMYCIN RESISTANT ENTEROCOCCUS ... Complete Laboratory Tests 01/25/20 04:30: White Blood Count 12.0H, Red Blood Count 5.07, Hemoglobin 16.0, Hematocrit 44.7 , Mean Corpuscular Volume 88, Mean Corpuscular Hemoglobin 31.5H, Mean Corpuscular Hemoglobin Concent 35.7, Red Cell Distribution Width 10.9L, Platelet Count 160, Mean Platelet Volume 6.4L, Neutrophils (%) (Auto) 67.0, Lymphocytes (%) (Auto) 18.9L, Monocytes (%) (Auto) 8.9, Eosinophils (%) (Auto) 4.4H, Basophils (%) (Auto) 0.9, Sodium Level 136, Potassium Level 3.9, Chloride Level 100, Carbon Dioxide Level 25, Anion Gap 11, Blood Urea Nitrogen 22H, Creatinine 1.0, Estimat Glomerular Filtration Rate > 60, Glucose Level 95, Calcium Level 9.3 Current Medications Medications (Trade) Dose Ordered Sig/Alex Route PRN Reason Start Time Stop Time Status Last Admin Dose Admin Dextrose (Dextrose 50%) 25 ml Q30M PRN IV Hypoglycemia 01/22/20 21:15 04/21/20 21:14 Dextrose (Dextrose 50%) 50 ml Q30M PRN IV Hypoglycemia 01/22/20 21:15 04/21/20 21:14 Heparin Sodium (Porcine) (Heparin 5000 units/ml) 5,000 units EVERY 12 HOURS SUBQ 01/23/20 09:00 03/08/20 08:59 01/25/20 10:25 Lorazepam (Ativan 2mg/ml 1ml) 0.5 mg Q4H PRN IV For Anxiety 01/22/20 21:15 01/29/20 21:14 Ondansetron HCl (Zofran) 4 mg Q6H PRN IVP Nausea & Vomiting 01/22/20 21:15 02/21/20 21:14 Piperacillin Sod/ Tazobactam Sod 3.375 gm/Dextrose 110 ml @ 27.5 mls/hr EVERY 8 HOURS IVPB 01/23/20 22:00 01/30/20 21:59 01/25/20 06:44 Promethazine HCl/ Codeine (Phenergan with Codeine) 5 ml Q6H PRN ORAL cough 01/22/20 21:15 02/21/20 21:14 Temazepam (Restoril) 15 mg HSPRN PRN ORAL Insomnia 01/22/20 21:15 01/29/20 21:14 Theophylline (Michael-Dur) 100 mg EVERY 12 HOURS ORAL 01/23/20 09:00 04/22/20 08:59 01/25/20 10:23 Olimpia Beck MD Jan 25, 2020 11:45
--- NOTE | 2020-01-25 14:08 | Infectious Diseases Prog Note ---
Assessment/Plan Assessment/Plan Fever, 101.5 at [place] RA CXR: no acute disease flu swab negative GABRIELA-CoV PCR negative x1 r/o viral pneumonia r/o bacteremia BCx: P Unlikely UTI UA negative COPD HTN Tobacco abuse Schizophrenia Plan: continue zosyn #3 01/21 SP cefepime and flagyl f/u sputum culture repeat CXR continue isolation precaution for now, [employer] SARS CoV test sensitivity range from 60-90% monitor temp and CBC monitor resp status DW RN Thank you for this consult. Subjective Allergies: Coded Allergies: No Known Allergies (Unverified , 01/22/20) Subjective Afebrile. on RA. Mild leukocytosis Objective Vital Signs Last 24 Hour Vital Signs Date Time Temp Pulse Resp B/P (MAP) Pulse Ox O2 Delivery O2 Flow Rate FiO2 01/25/20 12:13 Room Air 01/25/20 12:00 63 01/25/20 08:00 97.9 89 20 116/80 (92) 98 01/25/20 08:00 Room Air 01/25/20 08:00 73 01/25/20 04:00 Room Air 01/25/20 04:00 98.8 87 20 150/96 (114) 99 01/25/20 04:00 98 01/25/20 00:00 99.1 91 20 142/92 (109) 99 01/25/20 00:00 86 01/25/20 00:00 Room Air 01/24/20 20:00 Room Air 01/24/20 20:00 99.5 95 20 145/99 (114) 98 01/24/20 20:00 126 01/24/20 16:55 114 01/24/20 16:00 Room Air 01/24/20 16:00 97.6 110 21 146/72 (96) 94 Height (Feet): 5 Height (Inches): 5.00 Weight (Pounds): 128 Objective Gen: NAD. well nourished. CV: RRR. S1+S2. Resp: RRR. wheezes. coarse. no crackles. Abd: soft. no TTP. Skin: warm. dry. no rash Microbiology Date/Time Source Procedure Growth Status 01/22/20 19:45 Blood Blood Culture - Preliminary NO GROWTH AFTER 48 HOURS Resulted 01/22/20 19:30 Blood Blood Culture - Preliminary NO GROWTH AFTER 48 HOURS Resulted 01/22/20 20:00 Nasopharynx Coronavirus COVID-19 PCR ([facility]) - Final Complete 01/22/20 19:45 Nasal Nares - Final Complete 01/22/20 19:45 Nasal Nares - Final Complete 01/22/20 19:30 Nasal Nares MRSA Culture - Final NO METHICILLIN RESISTANT STAPH AUREUS... Complete 01/22/20 19:30 Rectum VRE Culture - Final NO VANCOMYCIN RESISTANT ENTEROCOCCUS ... Complete Laboratory Tests Test 01/25/20 04:30 White Blood Count 12.0 K/UL (4.8-10.8) H Red Blood Count 5.07 M/UL (4.70-6.10) Hemoglobin 16.0 G/DL (14.2-18.0) Hematocrit 44.7 % (42.0-52.0) Mean Corpuscular Volume 88 FL (80-99) Mean Corpuscular Hemoglobin 31.5 PG (27.0-31.0) H Mean Corpuscular Hemoglobin Concent 35.7 G/DL (32.0-36.0) Red Cell Distribution Width 10.9 % (11.6-14.8) L Platelet Count 160 K/UL (150-450) Mean Platelet Volume 6.4 FL (6.5-10.1) L Neutrophils (%) (Auto) 67.0 % (45.0-75.0) Lymphocytes (%) (Auto) 18.9 % (20.0-45.0) L Monocytes (%) (Auto) 8.9 % (1.0-10.0) Eosinophils (%) (Auto) 4.4 % (0.0-3.0) H Basophils (%) (Auto) 0.9 % (0.0-2.0) Sodium Level 136 MMOL/L (136-145) Potassium Level 3.9 MMOL/L (3.5-5.1) Chloride Level 100 MMOL/L (98-107) Carbon Dioxide Level 25 MMOL/L (21-32) Anion Gap 11 mmol/L (5-15) Blood Urea Nitrogen 22 mg/dL (7-18) H Creatinine 1.0 MG/DL (0.55-1.30) Estimat Glomerular Filtration Rate > 60 mL/min (>60) Glucose Level 95 MG/DL (74-106) Calcium Level 9.3 MG/DL (8.5-10.1) Current Medications Medications (Trade) Dose Ordered Sig/Alex Route PRN Reason Start Time Stop Time Status Last Admin Dose Admin Dextrose (Dextrose 50%) 25 ml Q30M PRN IV Hypoglycemia 01/22/20 21:15 04/21/20 21:14 Dextrose (Dextrose 50%) 50 ml Q30M PRN IV Hypoglycemia 01/22/20 21:15 04/21/20 21:14 Heparin Sodium (Porcine) (Heparin 5000 units/ml) 5,000 units EVERY 12 HOURS SUBQ 01/23/20 09:00 03/08/20 08:59 01/25/20 10:25 Lorazepam (Ativan 2mg/ml 1ml) 0.5 mg Q4H PRN IV For Anxiety 01/22/20 21:15 01/29/20 21:14 Ondansetron HCl (Zofran) 4 mg Q6H PRN IVP Nausea & Vomiting 01/22/20 21:15 02/21/20 21:14 Piperacillin Sod/ Tazobactam Sod 3.375 gm/Dextrose 110 ml @ 27.5 mls/hr EVERY 8 HOURS IVPB 01/23/20 22:00 01/30/20 21:59 01/25/20 06:44 Promethazine HCl/ Codeine (Phenergan with Codeine) 5 ml Q6H PRN ORAL cough 01/22/20 21:15 02/21/20 21:14 Temazepam (Restoril) 15 mg HSPRN PRN ORAL Insomnia 01/22/20 21:15 01/29/20 21:14 Theophylline (Michael-Dur) 100 mg EVERY 12 HOURS ORAL 01/23/20 09:00 04/22/20 08:59 01/25/20 10:23 Dwayne Mejia MD Jan 25, 2020 14:08
[2020-01-25 16:00] VITALS: BP 138/90
--- NOTE | 2020-01-25 16:34 | Diagnostic Imaging Report ---
Indication: Cough Technique: One view of the chest Comparison: 01/22/2020 Findings: Lungs and pleural spaces are clear. The heart size is normal. Findings are unchanged Impression: Negative
[2020-01-25 20:00] VITALS: BP 130/89
[2020-01-26] VITALS: BP 144/83
[2020-01-26 04:00] VITALS: BP 130/80
[2020-01-26 05:46] LABS: BASOPHILS % (AUTO) 1.4 % (0.0-2.0); EOSINOPHILS % (AUTO) 11.1 % (0.0-3.0); HEMATOCRIT 46.9 % (42.0-52.0); HEMOGLOBIN 16.6 G/DL (14.2-18.0); LYMPHOCYTES % (AUTO) 23.7 % (20.0-45.0); MEAN CORPUSCULAR VOLUME 88 FL (80-99); NEUTROPHILS % (AUTO) 53.9 % (45.0-75.0); PLATELET COUNT 148 K/UL (150-450); RED BLOOD COUNT 5.33 M/UL (4.70-6.10); RED CELL DISTRIBUTION WIDTH 10.8 % (11.6-14.8); WHITE BLOOD COUNT 8.6 K/UL (4.8-10.8)
[2020-01-26 05:58] LABS: ALANINE AMINOTRANSFERASE 48 U/L (12-78); ALBUMIN 3.7 G/DL (3.4-5.0); ALKALINE PHOSPHATASE 66 U/L (46-116); ANION GAP 13 mmol/L (5-15); ASPARTATE AMINO TRANSFERASE 40 U/L (15-37); BILIRUBIN,TOTAL 0.8 MG/DL (0.2-1.0); BLOOD UREA NITROGEN 20 mg/dL (7-18); CALCIUM 8.9 MG/DL (8.5-10.1); CARBON DIOXIDE 25 MMOL/L (21-32); CHLORIDE 104 MMOL/L (98-107); POTASSIUM 3.8 MMOL/L (3.5-5.1); SODIUM 142 MMOL/L (136-145)
[2020-01-26] MEDS: Piperacillin/Tazobactam 3.375 GM in D5W 110 ML IVPB SCH ×3 (06:11→21:03)
[2020-01-26 07:43] VITALS: BP 131/71
[2020-01-26] MEDS: Theophylline ER 100mg ORAL SCH ×2 (08:13→21:02)
[2020-01-26] MEDS: Heparin 5000 units/ml inj SUBQ SCH ×2 (08:14→21:02)
--- NOTE | 2020-01-26 10:52 | Pulmonology Progress Note ---
Assessment/Plan Problems: (1) Viral respiratory infection (2) Suspected 2019 novel coronavirus infection (3) COPD (chronic obstructive pulmonary disease) (4) Hypertensive heart disease (5) Polyneuropathy (6) Psychosis (7) Major depression Assessment/Plan wbc back to normal today doing better check sputum throat swab was Negative for [place], but ID wants to repeat it symptomatic treatment antitussives respiratory isolation dvt prophylaxis resume psychotic meds. Subjective ROS Limited/Unobtainable: No Constitutional: Reports: no symptoms HEENT: Repors: no symptoms Respiratory: Reports: no symptoms Allergies: Coded Allergies: No Known Allergies (Unverified , 01/22/20) Objective Last 24 Hour Vital Signs Date Time Temp Pulse Resp B/P (MAP) Pulse Ox O2 Delivery O2 Flow Rate FiO2 01/26/20 08:00 87 01/26/20 08:00 Room Air 01/26/20 07:43 97.7 84 20 131/71 (91) 95 01/26/20 04:00 98.1 88 20 130/80 (97) 97 01/26/20 04:00 Room Air 01/26/20 03:44 76 01/26/20 00:00 73 01/26/20 00:00 97.4 78 24 144/83 (103) 95 01/26/20 00:00 Room Air 01/25/20 20:00 97.7 73 24 130/89 (103) 95 01/25/20 20:00 73 01/25/20 20:00 Room Air 01/25/20 16:00 Room Air 01/25/20 16:00 69 01/25/20 16:00 98.4 72 18 138/90 (106) 98 01/25/20 12:00 63 01/25/20 12:00 Room Air Intake and Output 01/25/20 01/26/20 19:00 07:00 Intake Total 805.0 ml 710.0 ml Output Total 560 ml 800 ml Balance 245.0 ml -90.0 ml Intake Oral 750 ml 600 ml IV Total 55.0 ml 110.0 ml Output Urine Total 560 ml 800 ml # Bowel Movements 3 2 Objective General Appearance: WD/WN HEENT: normocephalic, atraumatic Respiratory/Chest: chest wall non-tender, lungs clear Cardiovascular: normal peripheral pulses, normal rate Abdomen: normal bowel sounds, soft, non tender Genitourinary: normal external genitalia Extremities: no clubbing 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: 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 normal, no motor/sensory deficits Lymphatic: no neck adenopathy Laboratory Tests 01/26/20 04:25: White Blood Count 8.6, Red Blood Count 5.33, Hemoglobin 16.6, Hematocrit 46.9, Mean Corpuscular Volume 88, Mean Corpuscular Hemoglobin 31.1H, Mean Corpuscular Hemoglobin Concent 35.3, Red Cell Distribution Width 10.8L, Platelet Count 148L , Mean Platelet Volume 6.3L, Neutrophils (%) (Auto) 53.9, Lymphocytes (%) (Auto ) 23.7, Monocytes (%) (Auto) 10.0, Eosinophils (%) (Auto) 11.1H, Basophils (%) ( Auto) 1.4, Erythrocyte Sedimentation Rate 34H, Sodium Level 142, Potassium Level 3.8, Chloride Level 104, Carbon Dioxide Level 25, Anion Gap 13, Blood Urea Nitrogen 20H, Creatinine 1.0, Estimat Glomerular Filtration Rate > 60, Glucose Level 97, Calcium Level 8.9, Phosphorus Level 3.0, Magnesium Level 2.1, Total Bilirubin 0.8, Aspartate Amino Transf (AST/SGOT) 40H, Alanine Aminotransferase (ALT/SGPT) 48, Alkaline Phosphatase 66, C-Reactive Protein, Quantitative 6.1H, Total Protein 7.3, Albumin 3.7, Globulin 3.6, Albumin/ Globulin Ratio 1.0 Current Medications Medications (Trade) Dose Ordered Sig/Alex Route PRN Reason Start Time Stop Time Status Last Admin Dose Admin Dextrose (Dextrose 50%) 25 ml Q30M PRN IV Hypoglycemia 01/22/20 21:15 04/21/20 21:14 Dextrose (Dextrose 50%) 50 ml Q30M PRN IV Hypoglycemia 01/22/20 21:15 04/21/20 21:14 Heparin Sodium (Porcine) (Heparin 5000 units/ml) 5,000 units EVERY 12 HOURS SUBQ 01/23/20 09:00 03/08/20 08:59 01/26/20 08:14 Lorazepam (Ativan 2mg/ml 1ml) 0.5 mg Q4H PRN IV For Anxiety 01/22/20 21:15 01/29/20 21:14 Ondansetron HCl (Zofran) 4 mg Q6H PRN IVP Nausea & Vomiting 01/22/20 21:15 02/21/20 21:14 Piperacillin Sod/ Tazobactam Sod 3.375 gm/Dextrose 110 ml @ 27.5 mls/hr EVERY 8 HOURS IVPB 01/23/20 22:00 01/30/20 21:59 01/26/20 06:11 Promethazine HCl/ Codeine (Phenergan with Codeine) 5 ml Q6H PRN ORAL cough 01/22/20 21:15 02/21/20 21:14 Temazepam (Restoril) 15 mg HSPRN PRN ORAL Insomnia 01/22/20 21:15 01/29/20 21:14 01/25/20 22:08 Theophylline (Michael-Dur) 100 mg EVERY 12 HOURS ORAL 01/23/20 09:00 04/22/20 08:59 01/26/20 08:13 Olimpia Beck MD Jan 26, 2020 10:51
--- NOTE | 2020-01-26 11:38 | General Progress Note ---
Assessment/Plan Problem List: (1) Hypertensive heart disease ICD Codes: I11.9 - Hypertensive heart disease without heart failure SNOMED: 17572786 (2) COPD (chronic obstructive pulmonary disease) ICD Codes: J44.9 - Chronic obstructive pulmonary disease, unspecified SNOMED: 17382740 (3) Psychosis ICD Codes: F29 - Unspecified psychosis not due to a substance or known physiological condition SNOMED: 12490981 (4) Suspected 2019 novel coronavirus infection ICD Codes: R68.89 - Other general symptoms and signs SNOMED: 520208702 Status: unchanged Assessment/Plan: o2 pulm tx abx pt diet cbc bmp am rechecking covid per id Subjective Constitutional: Reports: weakness Allergies: Coded Allergies: No Known Allergies (Unverified , 01/22/20) All Systems: reviewed and negative except above Subjective sleepy calm Objective Last 24 Hour Vital Signs Date Time Temp Pulse Resp B/P (MAP) Pulse Ox O2 Delivery O2 Flow Rate FiO2 01/26/20 08:00 87 01/26/20 08:00 Room Air 01/26/20 07:43 97.7 84 20 131/71 (91) 95 01/26/20 04:00 98.1 88 20 130/80 (97) 97 01/26/20 04:00 Room Air 01/26/20 03:44 76 01/26/20 00:00 73 01/26/20 00:00 97.4 78 24 144/83 (103) 95 01/26/20 00:00 Room Air 01/25/20 20:00 97.7 73 24 130/89 (103) 95 01/25/20 20:00 73 01/25/20 20:00 Room Air 01/25/20 16:00 Room Air 01/25/20 16:00 69 01/25/20 16:00 98.4 72 18 138/90 (106) 98 01/25/20 12:00 63 01/25/20 12:00 Room Air Intake and Output 01/25/20 01/26/20 19:00 07:00 Intake Total 805.0 ml 710.0 ml Output Total 560 ml 800 ml Balance 245.0 ml -90.0 ml Intake Oral 750 ml 600 ml IV Total 55.0 ml 110.0 ml Output Urine Total 560 ml 800 ml # Bowel Movements 3 2 Laboratory Tests 01/26/20 04:25: White Blood Count 8.6, Red Blood Count 5.33, Hemoglobin 16.6, Hematocrit 46.9, Mean Corpuscular Volume 88, Mean Corpuscular Hemoglobin 31.1H, Mean Corpuscular Hemoglobin Concent 35.3, Red Cell Distribution Width 10.8L, Platelet Count 148L , Mean Platelet Volume 6.3L, Neutrophils (%) (Auto) 53.9, Lymphocytes (%) (Auto ) 23.7, Monocytes (%) (Auto) 10.0, Eosinophils (%) (Auto) 11.1H, Basophils (%) ( Auto) 1.4, Erythrocyte Sedimentation Rate 34H, Sodium Level 142, Potassium Level 3.8, Chloride Level 104, Carbon Dioxide Level 25, Anion Gap 13, Blood Urea Nitrogen 20H, Creatinine 1.0, Estimat Glomerular Filtration Rate > 60, Glucose Level 97, Calcium Level 8.9, Phosphorus Level 3.0, Magnesium Level 2.1, Total Bilirubin 0.8, Aspartate Amino Transf (AST/SGOT) 40H, Alanine Aminotransferase (ALT/SGPT) 48, Alkaline Phosphatase 66, C-Reactive Protein, Quantitative 6.1H, Total Protein 7.3, Albumin 3.7, Globulin 3.6, Albumin/ Globulin Ratio 1.0 Height (Feet): 5 Height (Inches): 5.00 Weight (Pounds): 128 General Appearance: lethargic EENT: normal ENT inspection Cardiovascular: normal peripheral pulses, normal rate, regular rhythm Respiratory/Chest: no accessory muscle use Extremities: normal inspection Skin: normal pigmentation Panchito Gill DO Jan 26, 2020 11:38
[2020-01-26 12:00] VITALS: BP 145/78
--- NOTE | 2020-01-26 14:22 | Surgery Progress Note ---
Surgery Progress Note Subjective Additional Comments no acute events ill appearing labs noted Objective Last 24 Hour Vital Signs Date Time Temp Pulse Resp B/P (MAP) Pulse Ox O2 Delivery O2 Flow Rate FiO2 01/26/20 12:00 Room Air 01/26/20 12:00 115 01/26/20 12:00 97.8 100 20 145/78 (100) 96 01/26/20 08:00 87 01/26/20 08:00 Room Air 01/26/20 07:43 97.7 84 20 131/71 (91) 95 01/26/20 04:00 98.1 88 20 130/80 (97) 97 01/26/20 04:00 Room Air 01/26/20 03:44 76 01/26/20 00:00 73 01/26/20 00:00 97.4 78 24 144/83 (103) 95 01/26/20 00:00 Room Air 01/25/20 20:00 97.7 73 24 130/89 (103) 95 01/25/20 20:00 73 01/25/20 20:00 Room Air 01/25/20 16:00 Room Air 01/25/20 16:00 69 01/25/20 16:00 98.4 72 18 138/90 (106) 98 I&O Intake and Output 01/25/20 01/26/20 19:00 07:00 Intake Total 805.0 ml 710.0 ml Output Total 560 ml 800 ml Balance 245.0 ml -90.0 ml Intake Oral 750 ml 600 ml IV Total 55.0 ml 110.0 ml Output Urine Total 560 ml 800 ml # Bowel Movements 3 2 Dressing: other Wound: other Drains: other Cardiovascular: RSR Respiratory: decreased breath sounds Abdomen: soft, non-tender, present bowel sounds Extremities: no cyanosis Laboratory Tests Test 01/26/20 04:25 White Blood Count 8.6 K/UL (4.8-10.8) Red Blood Count 5.33 M/UL (4.70-6.10) Hemoglobin 16.6 G/DL (14.2-18.0) Hematocrit 46.9 % (42.0-52.0) Mean Corpuscular Volume 88 FL (80-99) Mean Corpuscular Hemoglobin 31.1 PG (27.0-31.0) H Mean Corpuscular Hemoglobin Concent 35.3 G/DL (32.0-36.0) Red Cell Distribution Width 10.8 % (11.6-14.8) L Platelet Count 148 K/UL (150-450) L Mean Platelet Volume 6.3 FL (6.5-10.1) L Neutrophils (%) (Auto) 53.9 % (45.0-75.0) Lymphocytes (%) (Auto) 23.7 % (20.0-45.0) Monocytes (%) (Auto) 10.0 % (1.0-10.0) Eosinophils (%) (Auto) 11.1 % (0.0-3.0) H Basophils (%) (Auto) 1.4 % (0.0-2.0) Erythrocyte Sedimentation Rate 34 MM/HR (0-20) H Sodium Level 142 MMOL/L (136-145) Potassium Level 3.8 MMOL/L (3.5-5.1) Chloride Level 104 MMOL/L (98-107) Carbon Dioxide Level 25 MMOL/L (21-32) Anion Gap 13 mmol/L (5-15) Blood Urea Nitrogen 20 mg/dL (7-18) H Creatinine 1.0 MG/DL (0.55-1.30) Estimat Glomerular Filtration Rate > 60 mL/min (>60) Glucose Level 97 MG/DL (74-106) Calcium Level 8.9 MG/DL (8.5-10.1) Phosphorus Level 3.0 MG/DL (2.5-4.9) Magnesium Level 2.1 MG/DL (1.8-2.4) Total Bilirubin 0.8 MG/DL (0.2-1.0) Aspartate Amino Transf (AST/SGOT) 40 U/L (15-37) H Alanine Aminotransferase (ALT/SGPT) 48 U/L (12-78) Alkaline Phosphatase 66 U/L (46-116) C-Reactive Protein, Quantitative 6.1 mg/dL (0.00-0.90) H Total Protein 7.3 G/DL (6.4-8.2) Albumin 3.7 G/DL (3.4-5.0) Globulin 3.6 g/dL Albumin/Globulin Ratio 1.0 (1.0-2.7) Plan Problems: (1) Decubitus skin ulcer Assessment & Plan: Pt presented on admission with resolving skin lesionof unknown etiology medial R foot.[place] epithelial at base of wound (L)75%,25% moist and viable area. No odor or exudate noted. N0 erythema or fluctuance periwound. Non-blanching erythema without induration or fluctuance clefts of R and L Buttocks and sacrum.Additional Incontinence associated dermatitis noted to R and L buttocks perianal and scrotum. Erythema with scattered satellite lesions noted. Both heels are boggy with non-blanching erythema. Tx.Plan: Apply Moisture Barrier Paste to Sacrum,R and L buttocks. Cover Sacrum with Optifoam drsg. Change every 3 days and prn. Apply [place] Skin Barrier to Both heels. Cover each heel with Optifoam drsg. Change every 7 days and prn. Apply Betadine to medial R foot . Cover with Optifoam drsg. Change very 3 days and prn. Reposition at least every 2hours or as tolerated. Off-load heels with Pillow. APM/BOO Mattress overlay. DAILY ESTIMATED NEEDS: Needs based on Pulmonary 72.3kg abw 25-30 kcals/kg 5085-0579 total kcals 1.25-1.5 g protein/kg 90-108 g total protein 25-30 mL/kg 3344-0447 total fluid mLs NUTRITION DIAGNOSIS: Increased kcal and pro needs r/t wound healing as evidenced by R foot unstageable wound. (CURRENT DIET: Regular) PO DIET RECOMMENDATIONS: Rec diet change -->> LOW NA diet/ texture as tolerated. ADDITIONAL RECOMMENDATIONS: 1) Per SNF: 68inches tall, weighs 174lbs 2) Diet change as above, monitor po intake 3) Wound care (f/up w/ WC eval): add TUNG BID + Vit C 250mg daily 4) F/up w/ H&P (2) Hypertensive heart disease (3) COPD (chronic obstructive pulmonary disease) (4) Polyneuropathy (5) Psychosis (6) Suspected 2019 novel coronavirus infection Assessment & Plan: pending test (7) Viral respiratory infection (8) Major depression Juan Michael Jan 26, 2020 14:22
--- NOTE | 2020-01-26 14:31 | Infectious Diseases Prog Note ---
Assessment/Plan Assessment/Plan Fever 101.5 at NH, SP RA Normal leukocytosis CXR: no acute disease flu swab negative GABRIELA-CoV PCR negative x1 r/o viral pneumonia r/o bacteremia BCx: P Unlikely UTI UA negative COPD HTN Tobacco abuse Schizophrenia Plan: continue zosyn #4 01/21 SP cefepime and flagyl f/u sputum culture repeat CXR continue isolation precaution and resend test, [employer] SARS CoV test sensitivity range from 60-90% monitor temp and CBC monitor resp status CT chest DW RN and pharmacist Thank you for this consult. Subjective Allergies: Coded Allergies: No Known Allergies (Unverified , 01/22/20) Subjective Afebrile. on RA. Mild leukocytosis resolved soft bowel movements Objective Vital Signs Last 24 Hour Vital Signs Date Time Temp Pulse Resp B/P (MAP) Pulse Ox O2 Delivery O2 Flow Rate FiO2 01/26/20 12:00 Room Air 01/26/20 12:00 115 01/26/20 12:00 97.8 100 20 145/78 (100) 96 01/26/20 08:00 87 01/26/20 08:00 Room Air 01/26/20 07:43 97.7 84 20 131/71 (91) 95 01/26/20 04:00 98.1 88 20 130/80 (97) 97 01/26/20 04:00 Room Air 01/26/20 03:44 76 01/26/20 00:00 73 01/26/20 00:00 97.4 78 24 144/83 (103) 95 01/26/20 00:00 Room Air 01/25/20 20:00 97.7 73 24 130/89 (103) 95 01/25/20 20:00 73 01/25/20 20:00 Room Air 01/25/20 16:00 Room Air 01/25/20 16:00 69 01/25/20 16:00 98.4 72 18 138/90 (106) 98 Height (Feet): 5 Height (Inches): 5.00 Weight (Pounds): 128 Objective Gen: NAD. well nourished. CV: RRR. S1+S2. Resp: RRR. wheezes. coarse. no crackles. Abd: soft. no TTP. Skin: warm. dry. no rash Laboratory Tests Test 01/26/20 04:25 White Blood Count 8.6 K/UL (4.8-10.8) Red Blood Count 5.33 M/UL (4.70-6.10) Hemoglobin 16.6 G/DL (14.2-18.0) Hematocrit 46.9 % (42.0-52.0) Mean Corpuscular Volume 88 FL (80-99) Mean Corpuscular Hemoglobin 31.1 PG (27.0-31.0) H Mean Corpuscular Hemoglobin Concent 35.3 G/DL (32.0-36.0) Red Cell Distribution Width 10.8 % (11.6-14.8) L Platelet Count 148 K/UL (150-450) L Mean Platelet Volume 6.3 FL (6.5-10.1) L Neutrophils (%) (Auto) 53.9 % (45.0-75.0) Lymphocytes (%) (Auto) 23.7 % (20.0-45.0) Monocytes (%) (Auto) 10.0 % (1.0-10.0) Eosinophils (%) (Auto) 11.1 % (0.0-3.0) H Basophils (%) (Auto) 1.4 % (0.0-2.0) Erythrocyte Sedimentation Rate 34 MM/HR (0-20) H Sodium Level 142 MMOL/L (136-145) Potassium Level 3.8 MMOL/L (3.5-5.1) Chloride Level 104 MMOL/L (98-107) Carbon Dioxide Level 25 MMOL/L (21-32) Anion Gap 13 mmol/L (5-15) Blood Urea Nitrogen 20 mg/dL (7-18) H Creatinine 1.0 MG/DL (0.55-1.30) Estimat Glomerular Filtration Rate > 60 mL/min (>60) Glucose Level 97 MG/DL (74-106) Calcium Level 8.9 MG/DL (8.5-10.1) Phosphorus Level 3.0 MG/DL (2.5-4.9) Magnesium Level 2.1 MG/DL (1.8-2.4) Total Bilirubin 0.8 MG/DL (0.2-1.0) Aspartate Amino Transf (AST/SGOT) 40 U/L (15-37) H Alanine Aminotransferase (ALT/SGPT) 48 U/L (12-78) Alkaline Phosphatase 66 U/L (46-116) C-Reactive Protein, Quantitative 6.1 mg/dL (0.00-0.90) H Total Protein 7.3 G/DL (6.4-8.2) Albumin 3.7 G/DL (3.4-5.0) Globulin 3.6 g/dL Albumin/Globulin Ratio 1.0 (1.0-2.7) Current Medications Medications (Trade) Dose Ordered Sig/Alex Route PRN Reason Start Time Stop Time Status Last Admin Dose Admin Dextrose (Dextrose 50%) 25 ml Q30M PRN IV Hypoglycemia 01/22/20 21:15 04/21/20 21:14 Dextrose (Dextrose 50%) 50 ml Q30M PRN IV Hypoglycemia 01/22/20 21:15 04/21/20 21:14 Heparin Sodium (Porcine) (Heparin 5000 units/ml) 5,000 units EVERY 12 HOURS SUBQ 01/23/20 09:00 03/08/20 08:59 01/26/20 08:14 Lorazepam (Ativan 2mg/ml 1ml) 0.5 mg Q4H PRN IV For Anxiety 01/22/20 21:15 01/29/20 21:14 Ondansetron HCl (Zofran) 4 mg Q6H PRN IVP Nausea & Vomiting 01/22/20 21:15 02/21/20 21:14 Piperacillin Sod/ Tazobactam Sod 3.375 gm/Dextrose 110 ml @ 27.5 mls/hr EVERY 8 HOURS IVPB 01/23/20 22:00 01/30/20 21:59 01/26/20 14:07 Promethazine HCl/ Codeine (Phenergan with Codeine) 5 ml Q6H PRN ORAL cough 01/22/20 21:15 02/21/20 21:14 Temazepam (Restoril) 15 mg HSPRN PRN ORAL Insomnia 01/22/20 21:15 01/29/20 21:14 01/25/20 22:08 Theophylline (Michael-Dur) 100 mg EVERY 12 HOURS ORAL 01/23/20 09:00 04/22/20 08:59 01/26/20 08:13 Dwayne Mejia MD Jan 26, 2020 14:31
[2020-01-26 16:00] VITALS: BP 138/71
[2020-01-26 20:00] VITALS: BP 131/84
[2020-01-27] VITALS: BP 129/86
[2020-01-27 04:00] VITALS: BP 127/86
[2020-01-27] MEDS: Piperacillin/Tazobactam 3.375 GM in D5W 110 ML IVPB SCH ×3 (05:02→21:02)
[2020-01-27 05:23] LABS: BASOPHILS % (AUTO) 1.1 % (0.0-2.0); EOSINOPHILS % (AUTO) 9.2 % (0.0-3.0); HEMATOCRIT 47.1 % (42.0-52.0); HEMOGLOBIN 16.4 G/DL (14.2-18.0); LYMPHOCYTES % (AUTO) 19.1 % (20.0-45.0); MEAN CORPUSCULAR VOLUME 88 FL (80-99); MONOCYTES % (AUTO) 9.4 % (1.0-10.0); NEUTROPHILS % (AUTO) 61.2 % (45.0-75.0); PLATELET COUNT 180 K/UL (150-450); RED BLOOD COUNT 5.34 M/UL (4.70-6.10); RED CELL DISTRIBUTION WIDTH 10.9 % (11.6-14.8); WHITE BLOOD COUNT 9.2 K/UL (4.8-10.8)
[2020-01-27 06:05] LABS: ANION GAP 7 mmol/L (5-15); BLOOD UREA NITROGEN 21 mg/dL (7-18); CARBON DIOXIDE 29 MMOL/L (21-32); CHLORIDE 102 MMOL/L (98-107); CREATININE 1.1 MG/DL (0.55-1.30); POTASSIUM 3.8 MMOL/L (3.5-5.1); SODIUM 138 MMOL/L (136-145)
[2020-01-27 08:00] VITALS: BP 143/71
--- NOTE | 2020-01-27 08:45 | General Progress Note ---
Assessment/Plan Problem List: (1) Hypertensive heart disease ICD Codes: I11.9 - Hypertensive heart disease without heart failure SNOMED: 78394487 (2) COPD (chronic obstructive pulmonary disease) ICD Codes: J44.9 - Chronic obstructive pulmonary disease, unspecified SNOMED: 56575742 (3) Psychosis ICD Codes: F29 - Unspecified psychosis not due to a substance or known physiological condition SNOMED: 83949806 (4) Suspected 2019 novel coronavirus infection ICD Codes: R68.89 - Other general symptoms and signs SNOMED: 662853036 Status: unchanged Assessment/Plan: o2 pulm tx abx pt diet cbc bmp am rechecking covid per id Subjective Constitutional: Reports: weakness Allergies: Coded Allergies: No Known Allergies (Unverified , 01/22/20) All Systems: reviewed and negative except above Subjective sleepy calm Objective Last 24 Hour Vital Signs Date Time Temp Pulse Resp B/P (MAP) Pulse Ox O2 Delivery O2 Flow Rate FiO2 01/27/20 08:00 97.7 73 19 143/71 (95) 96 01/27/20 04:00 63 01/27/20 04:00 98.0 63 19 127/86 (100) 96 01/27/20 04:00 Room Air 01/27/20 00:00 Room Air 01/27/20 00:00 98.0 86 18 129/86 (100) 95 01/27/20 00:00 88 01/26/20 20:00 98.1 96 19 131/84 (100) 96 01/26/20 20:00 92 01/26/20 20:00 Room Air 01/26/20 16:00 Room Air 01/26/20 16:00 98.0 104 20 138/71 (93) 95 01/26/20 15:57 118 01/26/20 12:00 Room Air 01/26/20 12:00 115 01/26/20 12:00 97.8 100 20 145/78 (100) 96 Intake and Output 01/26/20 01/27/20 19:00 07:00 Intake Total 1120.0 ml 110.0 ml Output Total 400 ml Balance 720.0 ml 110.0 ml Intake Oral 900 ml 0 ml IV Total 220.0 ml 110.0 ml Output Urine Total 400 ml # Voids 2 # Bowel Movements 8 Laboratory Tests 01/27/20 04:28: White Blood Count 9.2, Red Blood Count 5.34, Hemoglobin 16.4, Hematocrit 47.1, Mean Corpuscular Volume 88, Mean Corpuscular Hemoglobin 30.7, Mean Corpuscular Hemoglobin Concent 34.8, Red Cell Distribution Width 10.9L, Platelet Count 180, Mean Platelet Volume 6.9, Neutrophils (%) (Auto) 61.2, Lymphocytes (%) (Auto) 19.1L, Monocytes (%) (Auto) 9.4, Eosinophils (%) (Auto) 9.2H, Basophils (%) ( Auto) 1.1, Sodium Level 138, Potassium Level 3.8, Chloride Level 102, Carbon Dioxide Level 29, Anion Gap 7, Blood Urea Nitrogen 21H, Creatinine 1.1, Estimat Glomerular Filtration Rate > 60, Glucose Level 105, Calcium Level 9.0 Height (Feet): 5 Height (Inches): 5.00 Weight (Pounds): 128 General Appearance: lethargic EENT: normal ENT inspection Neck: normal alignment Cardiovascular: normal rate, regular rhythm Respiratory/Chest: no respiratory distress Extremities: normal inspection Skin: normal pigmentation Panchito Gill DO Jan 27, 2020 08:45
[2020-01-27] MEDS: Heparin 5000 units/ml inj SUBQ SCH ×2 (09:11→21:00)
[2020-01-27] MEDS: Theophylline ER 100mg ORAL SCH ×2 (09:12→21:02)
[2020-01-27 12:00] VITALS: BP_SYST 121; BP_SYST 151; BP_DIAS 73
--- NOTE | 2020-01-27 12:27 | Pulmonology Progress Note ---
Assessment/Plan Problems: (1) Viral respiratory infection (2) Suspected 2019 novel coronavirus infection (3) COPD (chronic obstructive pulmonary disease) (4) Hypertensive heart disease (5) Polyneuropathy (6) Psychosis (7) Major depression Assessment/Plan wbc back to normal today doing better check sputum covid 19 negative symptomatic treatment antitussives respiratory isolation dvt prophylaxis resume psychotic meds. dc planning Subjective ROS Limited/Unobtainable: No Constitutional: Reports: no symptoms HEENT: Repors: no symptoms Allergies: Coded Allergies: No Known Allergies (Unverified , 01/22/20) Objective Last 24 Hour Vital Signs Date Time Temp Pulse Resp B/P (MAP) Pulse Ox O2 Delivery O2 Flow Rate FiO2 01/27/20 08:00 Room Air 01/27/20 08:00 96 01/27/20 08:00 97.7 73 19 143/71 (95) 96 01/27/20 04:00 63 01/27/20 04:00 98.0 63 19 127/86 (100) 96 01/27/20 04:00 Room Air 01/27/20 00:00 Room Air 01/27/20 00:00 98.0 86 18 129/86 (100) 95 01/27/20 00:00 88 01/26/20 20:00 98.1 96 19 131/84 (100) 96 01/26/20 20:00 92 01/26/20 20:00 Room Air 01/26/20 16:00 Room Air 01/26/20 16:00 98.0 104 20 138/71 (93) 95 01/26/20 15:57 118 Intake and Output 01/26/20 01/27/20 19:00 07:00 Intake Total 1120.0 ml 110.0 ml Output Total 400 ml Balance 720.0 ml 110.0 ml Intake Oral 900 ml 0 ml IV Total 220.0 ml 110.0 ml Output Urine Total 400 ml # Voids 2 # Bowel Movements 8 Objective General Appearance: WD/WN HEENT: normocephalic, atraumatic Respiratory/Chest: chest wall non-tender, lungs clear Cardiovascular: normal peripheral pulses, normal rate Abdomen: normal bowel sounds, soft, non tender Genitourinary: normal external genitalia Extremities: no clubbing 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: 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 medical coding specialist II-XII grossly normal, no motor/sensory deficits Lymphatic: no neck adenopathy Laboratory Tests 01/27/20 04:28: White Blood Count 9.2, Red Blood Count 5.34, Hemoglobin 16.4, Hematocrit 47.1, Mean Corpuscular Volume 88, Mean Corpuscular Hemoglobin 30.7, Mean Corpuscular Hemoglobin Concent 34.8, Red Cell Distribution Width 10.9L, Platelet Count 180, Mean Platelet Volume 6.9, Neutrophils (%) (Auto) 61.2, Lymphocytes (%) (Auto) 19.1L, Monocytes (%) (Auto) 9.4, Eosinophils (%) (Auto) 9.2H, Basophils (%) ( Auto) 1.1, Sodium Level 138, Potassium Level 3.8, Chloride Level 102, Carbon Dioxide Level 29, Anion Gap 7, Blood Urea Nitrogen 21H, Creatinine 1.1, Estimat Glomerular Filtration Rate > 60, Glucose Level 105, Calcium Level 9.0 Current Medications Medications (Trade) Dose Ordered Sig/Alxe Route PRN Reason Start Time Stop Time Status Last Admin Dose Admin Dextrose (Dextrose 50%) 25 ml Q30M PRN IV Hypoglycemia 01/22/20 21:15 04/21/20 21:14 Dextrose (Dextrose 50%) 50 ml Q30M PRN IV Hypoglycemia 01/22/20 21:15 04/21/20 21:14 Heparin Sodium (Porcine) (Heparin 5000 units/ml) 5,000 units EVERY 12 HOURS SUBQ 01/23/20 09:00 03/08/20 08:59 01/27/20 09:11 Lorazepam (Ativan 2mg/ml 1ml) 0.5 mg Q4H PRN IV For Anxiety 01/22/20 21:15 01/29/20 21:14 Ondansetron HCl (Zofran) 4 mg Q6H PRN IVP Nausea & Vomiting 01/22/20 21:15 02/21/20 21:14 Piperacillin Sod/ Tazobactam Sod 3.375 gm/Dextrose 110 ml @ 27.5 mls/hr EVERY 8 HOURS IVPB 01/23/20 22:00 01/30/20 21:59 01/27/20 05:02 Promethazine HCl/ Codeine (Phenergan with Codeine) 5 ml Q6H PRN ORAL cough 01/22/20 21:15 02/21/20 21:14 Temazepam (Restoril) 15 mg HSPRN PRN ORAL Insomnia 01/22/20 21:15 01/29/20 21:14 01/25/20 22:08 Theophylline (Michael-Dur) 100 mg EVERY 12 HOURS ORAL 01/23/20 09:00 04/22/20 08:59 01/27/20 09:12 Olimpia Beck MD Jan 27, 2020 12:27
[2020-01-27 16:00] VITALS: BP 117/68
[2020-01-27] MEDS ORDERED: LORazepam Inj 2mg/ml 1ml IV PRN (16:35)
[2020-01-27] MEDS ORDERED: Promethazine/Codeine 5ml UD ORAL PRN (16:36)
--- NOTE | 2020-01-27 18:03 | Infectious Diseases Prog Note ---
Assessment/Plan Assessment/Plan Fever 101.5 at NH, SP RA Normal leukocytosis CXR: no acute disease flu swab negative SARS-CoV PCR negative x1 r/o viral pneumonia r/o bacteremia BCx: ngtd Unlikely UTI UA negative COPD HTN Tobacco abuse Schizophrenia Plan: continue zosyn #5/7 01/21 SP cefepime and flagyl per report, second SARS CoV test negative as well monitor temp and CBC monitor resp status DW RN Thank you for this consult. Subjective Allergies: Coded Allergies: No Known Allergies (Unverified , 01/22/20) Subjective Afebrile. on RA. Objective Vital Signs Last 24 Hour Vital Signs Date Time Temp Pulse Resp B/P (MAP) Pulse Ox O2 Delivery O2 Flow Rate FiO2 01/27/20 16:00 Room Air 01/27/20 16:00 97.4 71 19 117/68 (84) 100 01/27/20 12:00 Room Air 01/27/20 12:00 97.8 68 19 121/73 (89) 100 01/27/20 12:00 90 01/27/20 08:00 Room Air 01/27/20 08:00 96 01/27/20 08:00 97.7 73 19 143/71 (95) 96 01/27/20 04:00 63 01/27/20 04:00 98.0 63 19 127/86 (100) 96 01/27/20 04:00 Room Air 01/27/20 00:00 Room Air 01/27/20 00:00 98.0 86 18 129/86 (100) 95 01/27/20 00:00 88 01/26/20 20:00 98.1 96 19 131/84 (100) 96 01/26/20 20:00 92 01/26/20 20:00 Room Air Height (Feet): 5 Height (Inches): 5.00 Weight (Pounds): 128 Objective Gen: NAD. well nourished. CV: RRR. S1+S2. Resp: RRR. wheezes. coarse. no crackles. Abd: soft. no TTP. Skin: warm. dry. no rash Laboratory Tests Test 01/27/20 04:28 White Blood Count 9.2 K/UL (4.8-10.8) Red Blood Count 5.34 M/UL (4.70-6.10) Hemoglobin 16.4 G/DL (14.2-18.0) Hematocrit 47.1 % (42.0-52.0) Mean Corpuscular Volume 88 FL (80-99) Mean Corpuscular Hemoglobin 30.7 PG (27.0-31.0) Mean Corpuscular Hemoglobin Concent 34.8 G/DL (32.0-36.0) Red Cell Distribution Width 10.9 % (11.6-14.8) L Platelet Count 180 K/UL (150-450) Mean Platelet Volume 6.9 FL (6.5-10.1) Neutrophils (%) (Auto) 61.2 % (45.0-75.0) Lymphocytes (%) (Auto) 19.1 % (20.0-45.0) L Monocytes (%) (Auto) 9.4 % (1.0-10.0) Eosinophils (%) (Auto) 9.2 % (0.0-3.0) H Basophils (%) (Auto) 1.1 % (0.0-2.0) Sodium Level 138 MMOL/L (136-145) Potassium Level 3.8 MMOL/L (3.5-5.1) Chloride Level 102 MMOL/L (98-107) Carbon Dioxide Level 29 MMOL/L (21-32) Anion Gap 7 mmol/L (5-15) Blood Urea Nitrogen 21 mg/dL (7-18) H Creatinine 1.1 MG/DL (0.55-1.30) Estimat Glomerular Filtration Rate > 60 mL/min (>60) Glucose Level 105 MG/DL (74-106) Calcium Level 9.0 MG/DL (8.5-10.1) Current Medications Medications (Trade) Dose Ordered Sig/Alex Route PRN Reason Start Time Stop Time Status Last Admin Dose Admin Dextrose (Dextrose 50%) 25 ml Q30M PRN IV Hypoglycemia 01/27/20 16:34 04/21/20 16:33 Dextrose (Dextrose 50%) 50 ml Q30M PRN IV Hypoglycemia 01/27/20 16:45 04/21/20 21:14 Heparin Sodium (Porcine) (Heparin 5000 units/ml) 5,000 units EVERY 12 HOURS SUBQ 01/27/20 21:00 03/08/20 08:59 Lorazepam (Ativan 2mg/ml 1ml) 0.5 mg Q4H PRN IV For Anxiety 01/27/20 16:35 01/29/20 16:34 Ondansetron HCl (Zofran) 4 mg Q6H PRN IVP Nausea & Vomiting 01/27/20 16:35 02/21/20 16:34 Piperacillin Sod/ Tazobactam Sod 3.375 gm/Dextrose 110 ml @ 27.5 mls/hr EVERY 8 HOURS IVPB 01/27/20 22:00 01/30/20 21:59 Promethazine HCl/ Codeine (Phenergan with Codeine) 5 ml Q6H PRN ORAL cough 01/27/20 16:36 02/21/20 16:35 Temazepam (Restoril) 15 mg HSPRN PRN ORAL Insomnia 01/27/20 21:00 01/29/20 20:59 Theophylline (Michael-Dur) 100 mg EVERY 12 HOURS ORAL 01/27/20 21:00 04/22/20 08:59 Dwayne Mejia MD Jan 27, 2020 18:03
--- NOTE | 2020-01-27 19:28 | Surgery Progress Note ---
Surgery Progress Note Subjective Additional Comments no acute events covid neg downgraded comfortable Objective Last 24 Hour Vital Signs Date Time Temp Pulse Resp B/P (MAP) Pulse Ox O2 Delivery O2 Flow Rate FiO2 01/27/20 16:00 Room Air 01/27/20 16:00 97.4 71 19 117/68 (84) 100 01/27/20 12:00 Room Air 01/27/20 12:00 97.8 68 19 121/73 (89) 100 01/27/20 12:00 90 01/27/20 08:00 Room Air 01/27/20 08:00 96 01/27/20 08:00 97.7 73 19 143/71 (95) 96 01/27/20 04:00 63 01/27/20 04:00 98.0 63 19 127/86 (100) 96 01/27/20 04:00 Room Air 01/27/20 00:00 Room Air 01/27/20 00:00 98.0 86 18 129/86 (100) 95 01/27/20 00:00 88 01/26/20 20:00 98.1 96 19 131/84 (100) 96 01/26/20 20:00 92 01/26/20 20:00 Room Air I&O Intake and Output 01/26/20 01/27/20 19:00 07:00 Intake Total 1120.0 ml 110.0 ml Output Total 400 ml Balance 720.0 ml 110.0 ml Intake Oral 900 ml 0 ml IV Total 220.0 ml 110.0 ml Output Urine Total 400 ml # Voids 2 # Bowel Movements 8 Dressing: dry Wound: clean Cardiovascular: RSR Respiratory: clear Abdomen: soft, non-tender, present bowel sounds Extremities: no cyanosis Laboratory Tests Test 01/27/20 04:28 White Blood Count 9.2 K/UL (4.8-10.8) Red Blood Count 5.34 M/UL (4.70-6.10) Hemoglobin 16.4 G/DL (14.2-18.0) Hematocrit 47.1 % (42.0-52.0) Mean Corpuscular Volume 88 FL (80-99) Mean Corpuscular Hemoglobin 30.7 PG (27.0-31.0) Mean Corpuscular Hemoglobin Concent 34.8 G/DL (32.0-36.0) Red Cell Distribution Width 10.9 % (11.6-14.8) L Platelet Count 180 K/UL (150-450) Mean Platelet Volume 6.9 FL (6.5-10.1) Neutrophils (%) (Auto) 61.2 % (45.0-75.0) Lymphocytes (%) (Auto) 19.1 % (20.0-45.0) L Monocytes (%) (Auto) 9.4 % (1.0-10.0) Eosinophils (%) (Auto) 9.2 % (0.0-3.0) H Basophils (%) (Auto) 1.1 % (0.0-2.0) Sodium Level 138 MMOL/L (136-145) Potassium Level 3.8 MMOL/L (3.5-5.1) Chloride Level 102 MMOL/L (98-107) Carbon Dioxide Level 29 MMOL/L (21-32) Anion Gap 7 mmol/L (5-15) Blood Urea Nitrogen 21 mg/dL (7-18) H Creatinine 1.1 MG/DL (0.55-1.30) Estimat Glomerular Filtration Rate > 60 mL/min (>60) Glucose Level 105 MG/DL (74-106) Calcium Level 9.0 MG/DL (8.5-10.1) Plan Problems: (1) Decubitus skin ulcer Assessment & Plan: Pt presented on admission with resolving skin lesionof unknown etiology medial R foot.[place] epithelial at base of wound (L)75%,25% moist and viable area. No odor or exudate noted. N0 erythema or fluctuance periwound. Non-blanching erythema without induration or fluctuance clefts of R and L Buttocks and sacrum.Additional Incontinence associated dermatitis noted to R and L buttocks perianal and scrotum. Erythema with scattered satellite lesions noted. Both heels are boggy with non-blanching erythema. Tx.Plan: Apply Moisture Barrier Paste to Sacrum,R and L buttocks. Cover Sacrum with Optifoam drsg. Change every 3 days and prn. Apply Cavilon Skin Barrier to Both heels. Cover each heel with Optifoam drsg. Change every 7 days and prn. Apply Betadine to medial R foot . Cover with Optifoam drsg. Change very 3 days and prn. Reposition at least every 2hours or as tolerated. Off-load heels with Pillow. APM/BOO Mattress overlay. DAILY ESTIMATED NEEDS: Needs based on Pulmonary 72.3kg abw 25-30 kcals/kg 3632-5014 total kcals 1.25-1.5 g protein/kg 90-108 g total protein 25-30 mL/kg 0503-3090 total fluid mLs NUTRITION DIAGNOSIS: Increased kcal and pro needs r/t wound healing as evidenced by R foot unstageable wound. (CURRENT DIET: Regular) PO DIET RECOMMENDATIONS: Rec diet change -->> LOW NA diet/ texture as tolerated. ADDITIONAL RECOMMENDATIONS: 1) Per SNF: 68inches tall, weighs 174lbs 2) Diet change as above, monitor po intake 3) Wound care (f/up w/ WC eval): add TUNG BID + Vit C 250mg daily 4) F/up w/ H&P (2) Hypertensive heart disease (3) COPD (chronic obstructive pulmonary disease) (4) Polyneuropathy (5) Psychosis (6) Suspected 2019 novel coronavirus infection Assessment & Plan: negative d/c planning cont care upon d/c (7) Viral respiratory infection (8) Major depression Juan Michael Jan 27, 2020 19:28
[2020-01-27 20:00] VITALS: BP 109/73
[2020-01-28] VITALS: BP 111/70
[2020-01-28 04:00] VITALS: BP 109/76
[2020-01-28] MEDS: Piperacillin/Tazobactam 3.375 GM in D5W 110 ML IVPB SCH ×3 (04:55→21:18)
--- NOTE | 2020-01-28 07:37 | Pulmonology Progress Note ---
Assessment/Plan Problems: (1) Viral respiratory infection (2) Suspected 2019 novel coronavirus infection (3) COPD (chronic obstructive pulmonary disease) (4) Hypertensive heart disease (5) Polyneuropathy (6) Psychosis (7) Major depression Assessment/Plan doing better check sputum covid 19 negative symptomatic treatment antitussives respiratory isolation dvt prophylaxis resume psychotic meds. dc planning Subjective ROS Limited/Unobtainable: Yes Allergies: Coded Allergies: No Known Allergies (Unverified , 01/22/20) Objective Last 24 Hour Vital Signs Date Time Temp Pulse Resp B/P (MAP) Pulse Ox O2 Delivery O2 Flow Rate FiO2 01/28/20 04:00 98.6 76 19 109/76 (87) 98 01/28/20 04:00 Room Air 01/28/20 00:00 98.4 79 18 111/70 (84) 96 01/28/20 00:00 Room Air 01/27/20 20:00 98.2 67 18 109/73 (85) 96 01/27/20 20:00 Room Air 01/27/20 16:00 Room Air 01/27/20 16:00 97.4 71 19 117/68 (84) 100 01/27/20 12:00 Room Air 01/27/20 12:00 97.8 68 19 121/73 (89) 100 01/27/20 12:00 90 01/27/20 08:00 Room Air 01/27/20 08:00 96 01/27/20 08:00 97.7 73 19 143/71 (95) 96 Intake and Output 01/27/20 01/28/20 19:00 07:00 Intake Total 200 ml 450 ml Output Total 650 ml Balance 200 ml -200 ml Intake Oral 200 ml 450 ml Output Urine Total 650 ml # Voids 1 Objective General Appearance: WD/WN HEENT: normocephalic, atraumatic Respiratory/Chest: chest wall non-tender, lungs clear Cardiovascular: normal peripheral pulses, normal rate Abdomen: normal bowel sounds, soft, non tender Genitourinary: normal external genitalia Extremities: no clubbing 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: pinner printed circuit boards II-XII grossly normal, no motor/sensory deficits Lymphatic: no neck adenopathy Microbiology Date/Time Source Procedure Growth Status 01/26/20 10:35 Nasopharynx Coronavirus COVID-19 PCR ([facility]) - Final Complete Laboratory Tests 01/28/20 04:00: Sodium Level [Pending], Potassium Level [Pending], Chloride Level [Pending], Carbon Dioxide Level [Pending], Blood Urea Nitrogen [Pending], Creatinine [ Pending], Estimat Glomerular Filtration Rate [Pending], Glucose Level [Pending] , Calcium Level [Pending] 01/28/20 05:25: White Blood Count [Pending], Red Blood Count [Pending], Hemoglobin [Pending], Hematocrit [Pending], Mean Corpuscular Volume [Pending], Mean Corpuscular Hemoglobin [Pending], Mean Corpuscular Hemoglobin Concent [Pending], Red Cell Distribution Width [Pending], Platelet Count [Pending], Mean Platelet Volume [ Pending], Neutrophils (%) (Auto) [Pending], Lymphocytes (%) (Auto) [Pending], Monocytes (%) (Auto) [Pending], Eosinophils (%) (Auto) [Pending], Basophils (%) (Auto) [Pending] Current Medications Medications (Trade) Dose Ordered Sig/Alex Route PRN Reason Start Time Stop Time Status Last Admin Dose Admin Dextrose (Dextrose 50%) 25 ml Q30M PRN IV Hypoglycemia 01/27/20 16:34 04/21/20 16:33 Dextrose (Dextrose 50%) 50 ml Q30M PRN IV Hypoglycemia 01/27/20 16:45 04/21/20 21:14 Heparin Sodium (Porcine) (Heparin 5000 units/ml) 5,000 units EVERY 12 HOURS SUBQ 01/27/20 21:00 03/08/20 08:59 Lorazepam (Ativan 2mg/ml 1ml) 0.5 mg Q4H PRN IV For Anxiety 01/27/20 16:35 01/29/20 16:34 Ondansetron HCl (Zofran) 4 mg Q6H PRN IVP Nausea & Vomiting 01/27/20 16:35 02/21/20 16:34 Piperacillin Sod/ Tazobactam Sod 3.375 gm/Dextrose 110 ml @ 27.5 mls/hr EVERY 8 HOURS IVPB 01/27/20 22:00 01/30/20 21:59 01/28/20 04:55 Promethazine HCl/ Codeine (Phenergan with Codeine) 5 ml Q6H PRN ORAL cough 01/27/20 16:36 02/21/20 16:35 Temazepam (Restoril) 15 mg HSPRN PRN ORAL Insomnia 01/27/20 21:00 01/29/20 20:59 Theophylline (Michael-Dur) 100 mg EVERY 12 HOURS ORAL 01/27/20 21:00 04/22/20 08:59 01/27/20 21:02 Olimpia Beck MD Jan 28, 2020 07:37
[2020-01-28 07:38] LABS: ANION GAP 9 mmol/L (5-15); BLOOD UREA NITROGEN 25 mg/dL (7-18); CALCIUM 9.1 MG/DL (8.5-10.1); CARBON DIOXIDE 27 MMOL/L (21-32); CHLORIDE 103 MMOL/L (98-107); CREATININE 1.1 MG/DL (0.55-1.30); POTASSIUM 3.7 MMOL/L (3.5-5.1); SODIUM 139 MMOL/L (136-145)
[2020-01-28 07:41] LABS: BASOPHILS % (AUTO) 1.2 % (0.0-2.0); EOSINOPHILS % (AUTO) 12.2 % (0.0-3.0); HEMATOCRIT 46.4 % (42.0-52.0); HEMOGLOBIN 16.1 G/DL (14.2-18.0); LYMPHOCYTES % (AUTO) 23.7 % (20.0-45.0); MEAN CORPUSCULAR VOLUME 88 FL (80-99); MONOCYTES % (AUTO) 9.3 % (1.0-10.0); NEUTROPHILS % (AUTO) 53.6 % (45.0-75.0); PLATELET COUNT 168 K/UL (150-450); RED BLOOD COUNT 5.26 M/UL (4.70-6.10); RED CELL DISTRIBUTION WIDTH 10.4 % (11.6-14.8); WHITE BLOOD COUNT 7.7 K/UL (4.8-10.8)
[2020-01-28] MEDS: Theophylline ER 100mg ORAL SCH ×2 (08:26→20:21)
[2020-01-28] MEDS: Heparin 5000 units/ml inj SUBQ SCH ×2 (08:30→20:28)
--- NOTE | 2020-01-28 08:59 | General Progress Note ---
Assessment/Plan Problem List: (1) Hypertensive heart disease ICD Codes: I11.9 - Hypertensive heart disease without heart failure SNOMED: 67924023 (2) COPD (chronic obstructive pulmonary disease) ICD Codes: J44.9 - Chronic obstructive pulmonary disease, unspecified SNOMED: 44882427 (3) Psychosis ICD Codes: F29 - Unspecified psychosis not due to a substance or known physiological condition SNOMED: 54542190 (4) Suspected 2019 novel coronavirus infection ICD Codes: R68.89 - Other general symptoms and signs SNOMED: 584045902 Status: stable, progressing Assessment/Plan: o2 pulm tx abx pt diet cbc bmp am dc if clear Subjective Constitutional: Reports: weakness Allergies: Coded Allergies: No Known Allergies (Unverified , 01/22/20) All Systems: reviewed and negative except above Subjective sleepy calm Objective Last 24 Hour Vital Signs Date Time Temp Pulse Resp B/P (MAP) Pulse Ox O2 Delivery O2 Flow Rate FiO2 01/28/20 04:00 98.6 76 19 109/76 (87) 98 01/28/20 04:00 Room Air 01/28/20 00:00 98.4 79 18 111/70 (84) 96 01/28/20 00:00 Room Air 01/27/20 20:00 98.2 67 18 109/73 (85) 96 01/27/20 20:00 Room Air 01/27/20 16:00 Room Air 01/27/20 16:00 97.4 71 19 117/68 (84) 100 01/27/20 12:00 Room Air 01/27/20 12:00 97.8 68 19 121/73 (89) 100 01/27/20 12:00 90 Intake and Output 01/27/20 01/28/20 19:00 07:00 Intake Total 200 ml 450 ml Output Total 650 ml Balance 200 ml -200 ml Intake Oral 200 ml 450 ml Output Urine Total 650 ml # Voids 1 Laboratory Tests 01/28/20 05:25: White Blood Count 7.7, Red Blood Count 5.26, Hemoglobin 16.1, Hematocrit 46.4, Mean Corpuscular Volume 88, Mean Corpuscular Hemoglobin 30.5, Mean Corpuscular Hemoglobin Concent 34.6, Red Cell Distribution Width 10.4L, Platelet Count 168, Mean Platelet Volume 6.2L, Neutrophils (%) (Auto) 53.6, Lymphocytes (%) (Auto) 23.7, Monocytes (%) (Auto) 9.3, Eosinophils (%) (Auto) 12.2H, Basophils (%) ( Auto) 1.2, Sodium Level 139, Potassium Level 3.7, Chloride Level 103, Carbon Dioxide Level 27, Anion Gap 9, Blood Urea Nitrogen 25H, Creatinine 1.1, Estimat Glomerular Filtration Rate > 60, Glucose Level 102, Calcium Level 9.1 Height (Feet): 5 Height (Inches): 5.00 Weight (Pounds): 128 General Appearance: lethargic EENT: normal ENT inspection Neck: normal alignment Cardiovascular: normal peripheral pulses, normal rate, regular rhythm Respiratory/Chest: chest wall non-tender, lungs clear, normal breath sounds Abdomen: normal bowel sounds, non tender, soft Extremities: normal inspection Neurologic: motor weakness Skin: normal pigmentation, warm/dry Panchito Gill DO Jan 28, 2020 08:59
[2020-01-28 09:00] VITALS: BP 110/68
[2020-01-28] MEDS ORDERED: NS 275ml ONE (10:28)
[2020-01-28] MEDS ORDERED: Tubing IV Secondary IV ONE (10:28)
--- NOTE | 2020-01-28 11:10 | Infectious Diseases Prog Note ---
Assessment/Plan Assessment/Plan Fever 101.5 at NH, SP RA Normal leukocytosis CXR: no acute disease flu swab negative SARS-CoV PCR negative x2 r/o viral pneumonia Unlikely UTI UA negative COPD HTN Tobacco abuse Schizophrenia Plan: continue zosyn # 6/7 01/21 SP cefepime and flagyl DC COVID-19 iso monitor temp and CBC monitor resp status DW RN Thank you for this consult. Subjective Allergies: Coded Allergies: No Known Allergies (Unverified , 01/22/20) Subjective afebrile Objective Vital Signs Last 24 Hour Vital Signs Date Time Temp Pulse Resp B/P (MAP) Pulse Ox O2 Delivery O2 Flow Rate FiO2 01/28/20 09:00 Room Air 01/28/20 09:00 98.8 71 18 110/68 (82) 95 01/28/20 04:00 98.6 76 19 109/76 (87) 98 01/28/20 04:00 Room Air 01/28/20 00:00 98.4 79 18 111/70 (84) 96 01/28/20 00:00 Room Air 01/27/20 20:00 98.2 67 18 109/73 (85) 96 01/27/20 20:00 Room Air 01/27/20 16:00 Room Air 01/27/20 16:00 97.4 71 19 117/68 (84) 100 01/27/20 12:00 Room Air 01/27/20 12:00 97.8 68 19 121/73 (89) 100 01/27/20 12:00 90 Height (Feet): 5 Height (Inches): 5.00 Weight (Pounds): 128 HEENT: anicteric Respiratory/Chest: no respiratory distress Cardiovascular: regularly irregular Abdomen: soft, non tender Microbiology Date/Time Source Procedure Growth Status 01/26/20 10:35 Nasopharynx Coronavirus COVID-19 PCR ([facility]) - Final Complete Laboratory Tests Test 01/28/20 05:25 White Blood Count 7.7 K/UL (4.8-10.8) Red Blood Count 5.26 M/UL (4.70-6.10) Hemoglobin 16.1 G/DL (14.2-18.0) Hematocrit 46.4 % (42.0-52.0) Mean Corpuscular Volume 88 FL (80-99) Mean Corpuscular Hemoglobin 30.5 PG (27.0-31.0) Mean Corpuscular Hemoglobin Concent 34.6 G/DL (32.0-36.0) Red Cell Distribution Width 10.4 % (11.6-14.8) L Platelet Count 168 K/UL (150-450) Mean Platelet Volume 6.2 FL (6.5-10.1) L Neutrophils (%) (Auto) 53.6 % (45.0-75.0) Lymphocytes (%) (Auto) 23.7 % (20.0-45.0) Monocytes (%) (Auto) 9.3 % (1.0-10.0) Eosinophils (%) (Auto) 12.2 % (0.0-3.0) H Basophils (%) (Auto) 1.2 % (0.0-2.0) Sodium Level 139 MMOL/L (136-145) Potassium Level 3.7 MMOL/L (3.5-5.1) Chloride Level 103 MMOL/L (98-107) Carbon Dioxide Level 27 MMOL/L (21-32) Anion Gap 9 mmol/L (5-15) Blood Urea Nitrogen 25 mg/dL (7-18) H Creatinine 1.1 MG/DL (0.55-1.30) Estimat Glomerular Filtration Rate > 60 mL/min (>60) Glucose Level 102 MG/DL (74-106) Calcium Level 9.1 MG/DL (8.5-10.1) Current Medications Medications (Trade) Dose Ordered Sig/Alex Route PRN Reason Start Time Stop Time Status Last Admin Dose Admin Dextrose (Dextrose 50%) 25 ml Q30M PRN IV Hypoglycemia 01/27/20 16:34 04/21/20 16:33 Dextrose (Dextrose 50%) 50 ml Q30M PRN IV Hypoglycemia 01/27/20 16:45 04/21/20 21:14 Heparin Sodium (Porcine) (Heparin 5000 units/ml) 5,000 units EVERY 12 HOURS SUBQ 01/27/20 21:00 03/08/20 08:59 01/28/20 08:30 Lorazepam (Ativan 2mg/ml 1ml) 0.5 mg Q4H PRN IV For Anxiety 01/27/20 16:35 01/29/20 16:34 Ondansetron HCl (Zofran) 4 mg Q6H PRN IVP Nausea & Vomiting 01/27/20 16:35 02/21/20 16:34 Piperacillin Sod/ Tazobactam Sod 3.375 gm/Dextrose 110 ml @ 27.5 mls/hr EVERY 8 HOURS IVPB 01/27/20 22:00 01/30/20 21:59 01/28/20 04:55 Promethazine HCl/ Codeine (Phenergan with Codeine) 5 ml Q6H PRN ORAL cough 01/27/20 16:36 02/21/20 16:35 Temazepam (Restoril) 15 mg HSPRN PRN ORAL Insomnia 01/27/20 21:00 01/29/20 20:59 Theophylline (Michael-Dur) 100 mg EVERY 12 HOURS ORAL 01/27/20 21:00 04/22/20 08:59 01/28/20 08:26 Yan Garland MD Jan 28, 2020 11:10
[2020-01-28 12:00] VITALS: BP 115/71
--- NOTE | 2020-01-28 15:03 | Surgery Progress Note ---
Surgery Progress Note Subjective Additional Comments no acute events comfortable labs okay Objective Last 24 Hour Vital Signs Date Time Temp Pulse Resp B/P (MAP) Pulse Ox O2 Delivery O2 Flow Rate FiO2 01/28/20 12:00 97.5 81 17 115/71 (86) 96 01/28/20 12:00 Room Air 01/28/20 09:00 Room Air 01/28/20 09:00 98.8 71 18 110/68 (82) 95 01/28/20 04:00 98.6 76 19 109/76 (87) 98 01/28/20 04:00 Room Air 01/28/20 00:00 98.4 79 18 111/70 (84) 96 01/28/20 00:00 Room Air 01/27/20 20:00 98.2 67 18 109/73 (85) 96 01/27/20 20:00 Room Air 01/27/20 16:00 Room Air 01/27/20 16:00 97.4 71 19 117/68 (84) 100 I&O Intake and Output 01/27/20 01/28/20 19:00 07:00 Intake Total 200 ml 450 ml Output Total 650 ml Balance 200 ml -200 ml Intake Oral 200 ml 450 ml Output Urine Total 650 ml # Voids 1 Dressing: other Wound: other Drains: other Cardiovascular: RSR Respiratory: decreased breath sounds Abdomen: soft, non-tender, present bowel sounds Extremities: no tenderness, no cyanosis Laboratory Tests Test 01/28/20 05:25 White Blood Count 7.7 K/UL (4.8-10.8) Red Blood Count 5.26 M/UL (4.70-6.10) Hemoglobin 16.1 G/DL (14.2-18.0) Hematocrit 46.4 % (42.0-52.0) Mean Corpuscular Volume 88 FL (80-99) Mean Corpuscular Hemoglobin 30.5 PG (27.0-31.0) Mean Corpuscular Hemoglobin Concent 34.6 G/DL (32.0-36.0) Red Cell Distribution Width 10.4 % (11.6-14.8) L Platelet Count 168 K/UL (150-450) Mean Platelet Volume 6.2 FL (6.5-10.1) L Neutrophils (%) (Auto) 53.6 % (45.0-75.0) Lymphocytes (%) (Auto) 23.7 % (20.0-45.0) Monocytes (%) (Auto) 9.3 % (1.0-10.0) Eosinophils (%) (Auto) 12.2 % (0.0-3.0) H Basophils (%) (Auto) 1.2 % (0.0-2.0) Sodium Level 139 MMOL/L (136-145) Potassium Level 3.7 MMOL/L (3.5-5.1) Chloride Level 103 MMOL/L (98-107) Carbon Dioxide Level 27 MMOL/L (21-32) Anion Gap 9 mmol/L (5-15) Blood Urea Nitrogen 25 mg/dL (7-18) H Creatinine 1.1 MG/DL (0.55-1.30) Estimat Glomerular Filtration Rate > 60 mL/min (>60) Glucose Level 102 MG/DL (74-106) Calcium Level 9.1 MG/DL (8.5-10.1) Plan Problems: (1) Decubitus skin ulcer Assessment & Plan: Pt presented on admission with resolving skin lesionof unknown etiology medial R foot.[place] epithelial at base of wound (L)75%,25% moist and viable area. No odor or exudate noted. N0 erythema or fluctuance periwound. Non-blanching erythema without induration or fluctuance clefts of R and L Buttocks and sacrum.Additional Incontinence associated dermatitis noted to R and L buttocks perianal and scrotum. Erythema with scattered satellite lesions noted. Both heels are boggy with non-blanching erythema. Tx.Plan: Apply Moisture Barrier Paste to Sacrum,R and L buttocks. Cover Sacrum with Optifoam drsg. Change every 3 days and prn. Apply Cavilon Skin Barrier to Both heels. Cover each heel with Optifoam drsg. Change every 7 days and prn. Apply Betadine to medial R foot . Cover with Optifoam drsg. Change very 3 days and prn. Reposition at least every 2hours or as tolerated. Off-load heels with Pillow. APM/BOO Mattress overlay. DAILY ESTIMATED NEEDS: Needs based on Pulmonary 72.3kg abw 25-30 kcals/kg 7830-7953 total kcals 1.25-1.5 g protein/kg 90-108 g total protein 25-30 mL/kg 0137-2618 total fluid mLs NUTRITION DIAGNOSIS: Increased kcal and pro needs r/t wound healing as evidenced by R foot unstageable wound. (CURRENT DIET: Regular) PO DIET RECOMMENDATIONS: Rec diet change -->> LOW NA diet/ texture as tolerated. ADDITIONAL RECOMMENDATIONS: 1) Per SNF: 68inches tall, weighs 174lbs 2) Diet change as above, monitor po intake 3) Wound care (f/up w/ WC eval): add TUNG BID + Vit C 250mg daily 4) F/up w/ H&P (2) Hypertensive heart disease (3) COPD (chronic obstructive pulmonary disease) (4) Polyneuropathy (5) Psychosis (6) Suspected 2019 novel coronavirus infection Assessment & Plan: negative d/c planning cont care upon d/c (7) Viral respiratory infection (8) Major depression Juan Michael Jan 28, 2020 15:03
[2020-01-28 16:00] VITALS: BP 121/83
[2020-01-28 20:00] VITALS: BP 134/91
[2020-01-29] VITALS: BP 125/76
[2020-01-29 04:00] VITALS: BP 125/79
[2020-01-29] MEDS: Piperacillin/Tazobactam 3.375 GM in D5W 110 ML IVPB SCH ×3 (05:04→22:20)
--- NOTE | 2020-01-29 07:35 | Pulmonology Progress Note ---
Assessment/Plan Problems: (1) Viral respiratory infection (2) COPD (chronic obstructive pulmonary disease) (3) Hypertensive heart disease (4) Polyneuropathy (5) Psychosis (6) Major depression Assessment/Plan doing better check sputum covid 19 negative symptomatic treatment antitussives respiratory isolation dvt prophylaxis resume psychotic meds. dc planning Subjective ROS Limited/Unobtainable: No Constitutional: Reports: no symptoms HEENT: Repors: no symptoms Allergies: Coded Allergies: No Known Allergies (Unverified , 01/22/20) Objective Last 24 Hour Vital Signs Date Time Temp Pulse Resp B/P (MAP) Pulse Ox O2 Delivery O2 Flow Rate FiO2 01/29/20 04:00 97.9 82 20 125/79 (94) 96 01/29/20 04:00 Room Air 01/29/20 00:00 97.9 87 19 125/76 (92) 97 01/29/20 00:00 Room Air 01/28/20 20:00 Room Air 01/28/20 20:00 98.0 89 19 134/91 (105) 98 01/28/20 16:00 Room Air 01/28/20 16:00 97.5 83 19 121/83 (96) 99 01/28/20 12:00 97.5 81 17 115/71 (86) 96 01/28/20 12:00 Room Air 01/28/20 09:00 Room Air 01/28/20 09:00 98.8 71 18 110/68 (82) 95 Intake and Output 01/28/20 01/29/20 19:00 07:00 Intake Total 1700 ml Output Total 1500 ml Balance 200 ml Intake Oral 1100 ml Other 600 ml Output Urine Total 1500 ml Objective General Appearance: WD/WN HEENT: normocephalic, atraumatic Respiratory/Chest: chest wall non-tender, lungs clear Cardiovascular: normal peripheral pulses, normal rate Abdomen: normal bowel sounds, soft, non tender Genitourinary: normal external genitalia Extremities: no clubbing 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, no motor/sensory deficits Lymphatic: no neck adenopathy Microbiology Date/Time Source Procedure Growth Status 01/26/20 10:35 Nasopharynx Coronavirus COVID-19 PCR ([facility]) - Final Complete Current Medications Medications (Trade) Dose Ordered Sig/Alex Route PRN Reason Start Time Stop Time Status Last Admin Dose Admin Dextrose (Dextrose 50%) 25 ml Q30M PRN IV Hypoglycemia 01/27/20 16:34 04/21/20 16:33 Dextrose (Dextrose 50%) 50 ml Q30M PRN IV Hypoglycemia 01/27/20 16:45 04/21/20 21:14 Heparin Sodium (Porcine) (Heparin 5000 units/ml) 5,000 units EVERY 12 HOURS SUBQ 01/27/20 21:00 03/08/20 08:59 01/28/20 20:28 Lorazepam (Ativan 2mg/ml 1ml) 0.5 mg Q4H PRN IV For Anxiety 01/27/20 16:35 01/29/20 16:34 01/28/20 20:21 Ondansetron HCl (Zofran) 4 mg Q6H PRN IVP Nausea & Vomiting 01/27/20 16:35 02/21/20 16:34 Piperacillin Sod/ Tazobactam Sod 3.375 gm/Dextrose 110 ml @ 27.5 mls/hr EVERY 8 HOURS IVPB 01/27/20 22:00 01/30/20 21:59 01/29/20 05:04 Promethazine HCl/ Codeine (Phenergan with Codeine) 5 ml Q6H PRN ORAL cough 01/27/20 16:36 02/21/20 16:35 01/28/20 21:20 Temazepam (Restoril) 15 mg HSPRN PRN ORAL Insomnia 01/27/20 21:00 01/29/20 20:59 Theophylline (Michael-Dur) 100 mg EVERY 12 HOURS ORAL 01/27/20 21:00 04/22/20 08:59 01/28/20 20:21 Olimpia Beck MD Jan 29, 2020 07:35
[2020-01-29 08:00] VITALS: BP 131/77
[2020-01-29 08:41] LABS: ANION GAP 11 mmol/L (5-15); BLOOD UREA NITROGEN 20 mg/dL (7-18); CALCIUM 8.9 MG/DL (8.5-10.1); CARBON DIOXIDE 25 MMOL/L (21-32); CHLORIDE 102 MMOL/L (98-107); POTASSIUM 3.6 MMOL/L (3.5-5.1); SODIUM 138 MMOL/L (136-145)
[2020-01-29 08:58] LABS: BASOPHILS % (AUTO) 1.1 % (0.0-2.0); EOSINOPHILS % (AUTO) 6.3 % (0.0-3.0); HEMATOCRIT 42.6 % (42.0-52.0); HEMOGLOBIN 15.4 G/DL (14.2-18.0); LYMPHOCYTES % (AUTO) 21.3 % (20.0-45.0); MEAN CORPUSCULAR VOLUME 87 FL (80-99); MONOCYTES % (AUTO) 9.7 % (1.0-10.0); NEUTROPHILS % (AUTO) 61.6 % (45.0-75.0); PLATELET COUNT 170 K/UL (150-450); RED BLOOD COUNT 4.91 M/UL (4.70-6.10); RED CELL DISTRIBUTION WIDTH 10.5 % (11.6-14.8); WHITE BLOOD COUNT 7.9 K/UL (4.8-10.8)
--- NOTE | 2020-01-29 09:01 | General Progress Note ---
Assessment/Plan Problem List: (1) Hypertensive heart disease ICD Codes: I11.9 - Hypertensive heart disease without heart failure SNOMED: 25604701 (2) COPD (chronic obstructive pulmonary disease) ICD Codes: J44.9 - Chronic obstructive pulmonary disease, unspecified SNOMED: 36427427 (3) Psychosis ICD Codes: F29 - Unspecified psychosis not due to a substance or known physiological condition SNOMED: 55135800 (4) Suspected 2019 novel coronavirus infection ICD Codes: R68.89 - Other general symptoms and signs SNOMED: 086603703 Status: stable, progressing Assessment/Plan: o2 pulm tx abx pt diet cbc bmp am dc if clear Subjective Constitutional: Reports: weakness Allergies: Coded Allergies: No Known Allergies (Unverified , 01/22/20) All Systems: reviewed and negative except above Subjective bed eating Objective Last 24 Hour Vital Signs Date Time Temp Pulse Resp B/P (MAP) Pulse Ox O2 Delivery O2 Flow Rate FiO2 01/29/20 04:00 97.9 82 20 125/79 (94) 96 01/29/20 04:00 Room Air 01/29/20 00:00 97.9 87 19 125/76 (92) 97 01/29/20 00:00 Room Air 01/28/20 20:00 Room Air 01/28/20 20:00 98.0 89 19 134/91 (105) 98 01/28/20 16:00 Room Air 01/28/20 16:00 97.5 83 19 121/83 (96) 99 01/28/20 12:00 97.5 81 17 115/71 (86) 96 01/28/20 12:00 Room Air Intake and Output 01/28/20 01/29/20 19:00 07:00 Intake Total 1700 ml Output Total 1500 ml Balance 200 ml Intake Oral 1100 ml Other 600 ml Output Urine Total 1500 ml Laboratory Tests 01/29/20 07:40: White Blood Count [Pending], Red Blood Count [Pending], Hemoglobin [Pending], Hematocrit [Pending], Mean Corpuscular Volume [Pending], Mean Corpuscular Hemoglobin [Pending], Mean Corpuscular Hemoglobin Concent [Pending], Red Cell Distribution Width [Pending], Platelet Count [Pending], Mean Platelet Volume [ Pending], Neutrophils (%) (Auto) [Pending], Lymphocytes (%) (Auto) [Pending], Monocytes (%) (Auto) [Pending], Eosinophils (%) (Auto) [Pending], Basophils (%) (Auto) [Pending], Sodium Level 138, Potassium Level 3.6, Chloride Level 102, Carbon Dioxide Level 25, Anion Gap 11, Blood Urea Nitrogen 20H, Creatinine 1.0, Estimat Glomerular Filtration Rate > 60, Glucose Level 106, Calcium Level 8.9 Height (Feet): 5 Height (Inches): 5.00 Weight (Pounds): 128 General Appearance: lethargic EENT: normal ENT inspection Neck: normal alignment Cardiovascular: normal peripheral pulses, normal rate, regular rhythm Respiratory/Chest: chest wall non-tender, lungs clear, normal breath sounds Abdomen: normal bowel sounds, non tender, soft Extremities: normal inspection Neurologic: responsive, motor weakness Skin: normal pigmentation, warm/dry Panchito Gill DO Jan 29, 2020 09:01
[2020-01-29] MEDS: Theophylline ER 100mg ORAL SCH ×2 (09:56→20:33)
[2020-01-29] MEDS: Heparin 5000 units/ml inj SUBQ SCH ×2 (09:57→20:34)
[2020-01-29 12:00] VITALS: BP 136/79
[2020-01-29 16:00] VITALS: BP 127/83
--- NOTE | 2020-01-29 18:22 | Surgery Progress Note ---
Surgery Progress Note Subjective Symptoms: improved, tolerating diet, voiding well, passing flatus Additional Comments hands shaking Objective Last 24 Hour Vital Signs Date Time Temp Pulse Resp B/P (MAP) Pulse Ox O2 Delivery O2 Flow Rate FiO2 01/29/20 16:00 97.6 81 19 127/83 (98) 95 01/29/20 16:00 Room Air 01/29/20 12:03 Room Air 01/29/20 12:00 98.0 88 19 136/79 (98) 94 01/29/20 09:00 Room Air 01/29/20 08:00 98.6 77 18 131/77 (95) 95 01/29/20 04:00 97.9 82 20 125/79 (94) 96 01/29/20 04:00 Room Air 01/29/20 00:00 97.9 87 19 125/76 (92) 97 01/29/20 00:00 Room Air 01/28/20 20:00 Room Air 01/28/20 20:00 98.0 89 19 134/91 (105) 98 I&O Intake and Output 01/28/20 01/29/20 19:00 07:00 Intake Total 1700 ml Output Total 1500 ml Balance 200 ml Intake Oral 1100 ml Other 600 ml Output Urine Total 1500 ml Dressing: dry Wound: clean Cardiovascular: RSR Respiratory: clear Abdomen: soft, non-tender, present bowel sounds Extremities: no tenderness, no cyanosis Laboratory Tests Test 01/29/20 07:40 White Blood Count 7.9 K/UL (4.8-10.8) Red Blood Count 4.91 M/UL (4.70-6.10) Hemoglobin 15.4 G/DL (14.2-18.0) Hematocrit 42.6 % (42.0-52.0) Mean Corpuscular Volume 87 FL (80-99) Mean Corpuscular Hemoglobin 31.4 PG (27.0-31.0) H Mean Corpuscular Hemoglobin Concent 36.1 G/DL (32.0-36.0) H Red Cell Distribution Width 10.5 % (11.6-14.8) L Platelet Count 170 K/UL (150-450) Mean Platelet Volume 6.9 FL (6.5-10.1) Neutrophils (%) (Auto) 61.6 % (45.0-75.0) Lymphocytes (%) (Auto) 21.3 % (20.0-45.0) Monocytes (%) (Auto) 9.7 % (1.0-10.0) Eosinophils (%) (Auto) 6.3 % (0.0-3.0) H Basophils (%) (Auto) 1.1 % (0.0-2.0) Sodium Level 138 MMOL/L (136-145) Potassium Level 3.6 MMOL/L (3.5-5.1) Chloride Level 102 MMOL/L (98-107) Carbon Dioxide Level 25 MMOL/L (21-32) Anion Gap 11 mmol/L (5-15) Blood Urea Nitrogen 20 mg/dL (7-18) H Creatinine 1.0 MG/DL (0.55-1.30) Estimat Glomerular Filtration Rate > 60 mL/min (>60) Glucose Level 106 MG/DL (74-106) Calcium Level 8.9 MG/DL (8.5-10.1) Plan Problems: (1) Decubitus skin ulcer Assessment & Plan: Pt presented on admission with resolving skin lesionof unknown etiology medial R foot.[place] epithelial at base of wound (L)75%,25% moist and viable area. No odor or exudate noted. N0 erythema or fluctuance periwound. Non-blanching erythema without induration or fluctuance clefts of R and L Buttocks and sacrum.Additional Incontinence associated dermatitis noted to R and L buttocks perianal and scrotum. Erythema with scattered satellite lesions noted. Both heels are boggy with non-blanching erythema. Tx.Plan: Apply Moisture Barrier Paste to Sacrum,R and L buttocks. Cover Sacrum with Optifoam drsg. Change every 3 days and prn. Apply Cavilon Skin Barrier to Both heels. Cover each heel with Optifoam drsg. Change every 7 days and prn. Apply Betadine to medial R foot . Cover with Optifoam drsg. Change very 3 days and prn. Reposition at least every 2hours or as tolerated. Off-load heels with Pillow. APM/BOO Mattress overlay. DAILY ESTIMATED NEEDS: Needs based on Pulmonary 72.3kg abw 25-30 kcals/kg 3716-5838 total kcals 1.25-1.5 g protein/kg 90-108 g total protein 25-30 mL/kg 9556-6437 total fluid mLs NUTRITION DIAGNOSIS: Increased kcal and pro needs r/t wound healing as evidenced by R foot unstageable wound. (CURRENT DIET: Regular) PO DIET RECOMMENDATIONS: Rec diet change -->> LOW NA diet/ texture as tolerated. ADDITIONAL RECOMMENDATIONS: 1) Per SNF: 68inches tall, weighs 174lbs 2) Diet change as above, monitor po intake 3) Wound care (f/up w/ WC eval): add TUNG BID + Vit C 250mg daily 4) F/up w/ H&P (2) Hypertensive heart disease (3) COPD (chronic obstructive pulmonary disease) (4) Polyneuropathy (5) Psychosis (6) Suspected 2019 novel coronavirus infection Assessment & Plan: negative d/c planning cont care upon d/c (7) Viral respiratory infection (8) Major depression Juan Michael Jan 29, 2020 18:22
[2020-01-29 20:00] VITALS: BP 131/94
[2020-01-30] VITALS: BP 120/74
[2020-01-30 04:00] VITALS: BP 148/83
[2020-01-30] MEDS: Piperacillin/Tazobactam 3.375 GM in D5W 110 ML IVPB SCH ×2 (06:09→15:16)
[2020-01-30 07:45] LABS: BASOPHILS % (AUTO) 1.5 % (0.0-2.0); EOSINOPHILS % (AUTO) 8.5 % (0.0-3.0); HEMATOCRIT 45.9 % (42.0-52.0); HEMOGLOBIN 16.3 G/DL (14.2-18.0); LYMPHOCYTES % (AUTO) 30.3 % (20.0-45.0); MEAN CORPUSCULAR VOLUME 88 FL (80-99); MONOCYTES % (AUTO) 9.6 % (1.0-10.0); NEUTROPHILS % (AUTO) 50.2 % (45.0-75.0); PLATELET COUNT 184 K/UL (150-450); RED BLOOD COUNT 5.25 M/UL (4.70-6.10); RED CELL DISTRIBUTION WIDTH 10.6 % (11.6-14.8); WHITE BLOOD COUNT 6.7 K/UL (4.8-10.8)
[2020-01-30 08:00] VITALS: BP 135/74
[2020-01-30 08:42] LABS: ANION GAP 14 mmol/L (5-15); BLOOD UREA NITROGEN 19 mg/dL (7-18); CARBON DIOXIDE 23 MMOL/L (21-32); CHLORIDE 104 MMOL/L (98-107); POTASSIUM 3.8 MMOL/L (3.5-5.1); SODIUM 140 MMOL/L (136-145)
--- NOTE | 2020-01-30 09:08 | General Progress Note ---
Assessment/Plan Problem List: (1) Hypertensive heart disease ICD Codes: I11.9 - Hypertensive heart disease without heart failure SNOMED: 95748813 (2) COPD (chronic obstructive pulmonary disease) ICD Codes: J44.9 - Chronic obstructive pulmonary disease, unspecified SNOMED: 85661404 (3) Psychosis ICD Codes: F29 - Unspecified psychosis not due to a substance or known physiological condition SNOMED: 42589397 Status: stable, progressing Assessment/Plan: o2 pulm tx abx pt diet cbc bmp am dc if clear Subjective Constitutional: Reports: weakness Allergies: Coded Allergies: No Known Allergies (Unverified , 01/22/20) All Systems: reviewed and negative except above Subjective sleepy calm Objective Last 24 Hour Vital Signs Date Time Temp Pulse Resp B/P (MAP) Pulse Ox O2 Delivery O2 Flow Rate FiO2 01/30/20 08:00 98.6 100 20 135/74 (94) 97 100 01/30/20 04:00 98.7 74 20 148/83 (104) 98 74 01/30/20 00:00 98.7 78 18 120/74 (89) 97 78 01/29/20 20:55 Room Air 01/29/20 20:00 98.2 100 20 131/94 (106) 98 100 01/29/20 16:00 97.6 81 19 127/83 (98) 95 01/29/20 16:00 Room Air 01/29/20 12:03 Room Air 01/29/20 12:00 98.0 88 19 136/79 (98) 94 Intake and Output 01/29/20 01/30/20 19:00 07:00 Intake Total 1200 ml Balance 1200 ml Other 1200 ml Laboratory Tests 01/30/20 07:10: White Blood Count 6.7, Red Blood Count 5.25, Hemoglobin 16.3, Hematocrit 45.9, Mean Corpuscular Volume 88, Mean Corpuscular Hemoglobin 31.1H, Mean Corpuscular Hemoglobin Concent 35.5, Red Cell Distribution Width 10.6L, Platelet Count 184, Mean Platelet Volume 6.1L, Neutrophils (%) (Auto) 50.2, Lymphocytes (%) (Auto) 30.3, Monocytes (%) (Auto) 9.6, Eosinophils (%) (Auto) 8.5H, Basophils (%) (Auto ) 1.5, Sodium Level 140, Potassium Level 3.8, Chloride Level 104, Carbon Dioxide Level 23, Anion Gap 14, Blood Urea Nitrogen 19H, Creatinine 1.0, Estimat Glomerular Filtration Rate > 60, Glucose Level 113H, Calcium Level 9.0 Height (Feet): 5 Height (Inches): 5.00 Weight (Pounds): 128 General Appearance: lethargic Neck: normal alignment Cardiovascular: normal peripheral pulses, normal rate, regular rhythm Respiratory/Chest: chest wall non-tender, normal breath sounds Abdomen: normal bowel sounds, non tender, soft Extremities: normal inspection Edema: no edema noted Arm (L), no edema noted Arm (R), no edema noted Leg (L), no edema noted Leg (R), no edema noted Pedal (L), no edema noted Pedal (R), no edema noted Generalized Neurologic: motor weakness Skin: normal pigmentation, warm/dry Panchito Gill DO Jan 30, 2020 09:08
[2020-01-30] MEDS: Theophylline ER 100mg ORAL SCH ×2 (09:36→21:14)
[2020-01-30] MEDS: Heparin 5000 units/ml inj SUBQ SCH ×2 (09:37→21:15)
--- NOTE | 2020-01-30 11:16 | Pulmonology Progress Note ---
Assessment/Plan Problems: (1) Viral respiratory infection (2) COPD (chronic obstructive pulmonary disease) (3) Hypertensive heart disease (4) Polyneuropathy (5) Psychosis (6) Major depression Assessment/Plan doing better check sputum covid 19 negative X TWO symptomatic treatment antitussives respiratory isolation dvt prophylaxis resume psychotic meds. dc planning Subjective ROS Limited/Unobtainable: No Constitutional: Reports: no symptoms HEENT: Repors: no symptoms Respiratory: Reports: no symptoms Allergies: Coded Allergies: No Known Allergies (Unverified , 01/22/20) Objective Last 24 Hour Vital Signs Date Time Temp Pulse Resp B/P (MAP) Pulse Ox O2 Delivery O2 Flow Rate FiO2 01/30/20 08:00 98.6 100 20 135/74 (94) 97 100 01/30/20 04:00 98.7 74 20 148/83 (104) 98 74 01/30/20 00:00 98.7 78 18 120/74 (89) 97 78 01/29/20 20:55 Room Air 01/29/20 20:00 98.2 100 20 131/94 (106) 98 100 01/29/20 16:00 97.6 81 19 127/83 (98) 95 01/29/20 16:00 Room Air 01/29/20 12:03 Room Air 01/29/20 12:00 98.0 88 19 136/79 (98) 94 Intake and Output 01/29/20 01/30/20 19:00 07:00 Intake Total 1200 ml Balance 1200 ml Other 1200 ml Objective General Appearance: WD/WN HEENT: normocephalic, atraumatic Respiratory/Chest: chest wall non-tender, lungs clear Cardiovascular: normal peripheral pulses, normal rate Abdomen: normal bowel sounds, soft, non tender Genitourinary: normal external genitalia Extremities: no clubbing 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, no motor/sensory deficits Lymphatic: no neck adenopathy Laboratory Tests 01/30/20 07:10: White Blood Count 6.7, Red Blood Count 5.25, Hemoglobin 16.3, Hematocrit 45.9, Mean Corpuscular Volume 88, Mean Corpuscular Hemoglobin 31.1H, Mean Corpuscular Hemoglobin Concent 35.5, Red Cell Distribution Width 10.6L, Platelet Count 184, Mean Platelet Volume 6.1L, Neutrophils (%) (Auto) 50.2, Lymphocytes (%) (Auto) 30.3, Monocytes (%) (Auto) 9.6, Eosinophils (%) (Auto) 8.5H, Basophils (%) (Auto ) 1.5, Sodium Level 140, Potassium Level 3.8, Chloride Level 104, Carbon Dioxide Level 23, Anion Gap 14, Blood Urea Nitrogen 19H, Creatinine 1.0, Estimat Glomerular Filtration Rate > 60, Glucose Level 113H, Calcium Level 9.0 Current Medications Medications (Trade) Dose Ordered Sig/Alex Route PRN Reason Start Time Stop Time Status Last Admin Dose Admin Dextrose (Dextrose 50%) 25 ml Q30M PRN IV Hypoglycemia 01/27/20 16:34 04/21/20 16:33 Dextrose (Dextrose 50%) 50 ml Q30M PRN IV Hypoglycemia 01/27/20 16:45 04/21/20 21:14 Heparin Sodium (Porcine) (Heparin 5000 units/ml) 5,000 units EVERY 12 HOURS SUBQ 01/27/20 21:00 03/08/20 08:59 01/30/20 09:37 Ondansetron HCl (Zofran) 4 mg Q6H PRN IVP Nausea & Vomiting 01/27/20 16:35 02/21/20 16:34 Piperacillin Sod/ Tazobactam Sod 3.375 gm/Dextrose 110 ml @ 27.5 mls/hr EVERY 8 HOURS IVPB 01/27/20 22:00 01/30/20 21:59 01/30/20 06:09 Promethazine HCl/ Codeine (Phenergan with Codeine) 5 ml Q6H PRN ORAL cough 01/27/20 16:36 02/21/20 16:35 01/28/20 21:20 Theophylline (Michael-Dur) 100 mg EVERY 12 HOURS ORAL 01/27/20 21:00 04/22/20 08:59 01/30/20 09:36 Olimpia Beck MD Jan 30, 2020 11:16
[2020-01-30 12:00] VITALS: BP 120/80
[2020-01-30 16:00] VITALS: BP 118/72
--- NOTE | 2020-01-30 16:48 | Infectious Diseases Prog Note ---
Assessment/Plan Assessment/Plan Fever 101.5 at NH, SP RA Normal leukocytosis CXR: no acute disease flu swab negative SARS-CoV PCR negative x2 r/o viral pneumonia Unlikely UTI UA negative COPD HTN Tobacco abuse Schizophrenia Plan: 01/29 SP zosyn # 8 01/21 SP cefepime and flagyl DC COVID-19 iso monitor temp and CBC monitor resp status DW RN Thank you for this consult. Subjective Allergies: Coded Allergies: No Known Allergies (Unverified , 01/22/20) Subjective Afebrile. on RA. feels well Objective Vital Signs Last 24 Hour Vital Signs Date Time Temp Pulse Resp B/P (MAP) Pulse Ox O2 Delivery O2 Flow Rate FiO2 01/30/20 12:00 97.9 75 20 120/80 (93) 96 75 01/30/20 08:00 98.6 100 20 135/74 (94) 97 100 01/30/20 04:00 98.7 74 20 148/83 (104) 98 74 01/30/20 00:00 98.7 78 18 120/74 (89) 97 78 01/29/20 20:55 Room Air 01/29/20 20:00 98.2 100 20 131/94 (106) 98 100 Height (Feet): 5 Height (Inches): 5.00 Weight (Pounds): 128 Objective Gen: NAD. well nourished. CV: RRR. S1+S2. Resp: RRR. wheezes. coarse. no crackles. Abd: soft. no TTP. Skin: warm. dry. no rash Neuro: alert. makes wishes known Laboratory Tests Test 01/30/20 07:10 White Blood Count 6.7 K/UL (4.8-10.8) Red Blood Count 5.25 M/UL (4.70-6.10) Hemoglobin 16.3 G/DL (14.2-18.0) Hematocrit 45.9 % (42.0-52.0) Mean Corpuscular Volume 88 FL (80-99) Mean Corpuscular Hemoglobin 31.1 PG (27.0-31.0) H Mean Corpuscular Hemoglobin Concent 35.5 G/DL (32.0-36.0) Red Cell Distribution Width 10.6 % (11.6-14.8) L Platelet Count 184 K/UL (150-450) Mean Platelet Volume 6.1 FL (6.5-10.1) L Neutrophils (%) (Auto) 50.2 % (45.0-75.0) Lymphocytes (%) (Auto) 30.3 % (20.0-45.0) Monocytes (%) (Auto) 9.6 % (1.0-10.0) Eosinophils (%) (Auto) 8.5 % (0.0-3.0) H Basophils (%) (Auto) 1.5 % (0.0-2.0) Sodium Level 140 MMOL/L (136-145) Potassium Level 3.8 MMOL/L (3.5-5.1) Chloride Level 104 MMOL/L (98-107) Carbon Dioxide Level 23 MMOL/L (21-32) Anion Gap 14 mmol/L (5-15) Blood Urea Nitrogen 19 mg/dL (7-18) H Creatinine 1.0 MG/DL (0.55-1.30) Estimat Glomerular Filtration Rate > 60 mL/min (>60) Glucose Level 113 MG/DL (74-106) H Calcium Level 9.0 MG/DL (8.5-10.1) Current Medications Medications (Trade) Dose Ordered Sig/Alex Route PRN Reason Start Time Stop Time Status Last Admin Dose Admin Dextrose (Dextrose 50%) 25 ml Q30M PRN IV Hypoglycemia 01/27/20 16:34 04/21/20 16:33 Dextrose (Dextrose 50%) 50 ml Q30M PRN IV Hypoglycemia 01/27/20 16:45 04/21/20 21:14 Heparin Sodium (Porcine) (Heparin 5000 units/ml) 5,000 units EVERY 12 HOURS SUBQ 01/27/20 21:00 03/08/20 08:59 01/30/20 09:37 Ondansetron HCl (Zofran) 4 mg Q6H PRN IVP Nausea & Vomiting 01/27/20 16:35 02/21/20 16:34 Piperacillin Sod/ Tazobactam Sod 3.375 gm/Dextrose 110 ml @ 27.5 mls/hr EVERY 8 HOURS IVPB 01/27/20 22:00 01/30/20 23:59 01/30/20 15:16 Promethazine HCl/ Codeine (Phenergan with Codeine) 5 ml Q6H PRN ORAL cough 01/27/20 16:36 02/21/20 16:35 01/28/20 21:20 Theophylline (Michael-Dur) 100 mg EVERY 12 HOURS ORAL 01/27/20 21:00 04/22/20 08:59 01/30/20 09:36 Dwayne Mejia MD Jan 30, 2020 16:48
--- NOTE | 2020-01-30 17:36 | Surgery Progress Note ---
Surgery Progress Note Subjective Symptoms: improved, tolerating diet, passing flatus Objective Last 24 Hour Vital Signs Date Time Temp Pulse Resp B/P (MAP) Pulse Ox O2 Delivery O2 Flow Rate FiO2 01/30/20 16:00 98.2 64 20 118/72 (87) 97 64 01/30/20 12:00 97.9 75 20 120/80 (93) 96 75 01/30/20 08:00 98.6 100 20 135/74 (94) 97 100 01/30/20 04:00 98.7 74 20 148/83 (104) 98 74 01/30/20 00:00 98.7 78 18 120/74 (89) 97 78 01/29/20 20:55 Room Air 01/29/20 20:00 98.2 100 20 131/94 (106) 98 100 I&O Intake and Output 01/29/20 01/30/20 19:00 07:00 Intake Total 1200 ml Balance 1200 ml Other 1200 ml Dressing: saturated Wound: clean Cardiovascular: RSR Respiratory: clear, decreased breath sounds Abdomen: soft, non-tender, present bowel sounds Extremities: no tenderness, no cyanosis Laboratory Tests Test 01/30/20 07:10 White Blood Count 6.7 K/UL (4.8-10.8) Red Blood Count 5.25 M/UL (4.70-6.10) Hemoglobin 16.3 G/DL (14.2-18.0) Hematocrit 45.9 % (42.0-52.0) Mean Corpuscular Volume 88 FL (80-99) Mean Corpuscular Hemoglobin 31.1 PG (27.0-31.0) H Mean Corpuscular Hemoglobin Concent 35.5 G/DL (32.0-36.0) Red Cell Distribution Width 10.6 % (11.6-14.8) L Platelet Count 184 K/UL (150-450) Mean Platelet Volume 6.1 FL (6.5-10.1) L Neutrophils (%) (Auto) 50.2 % (45.0-75.0) Lymphocytes (%) (Auto) 30.3 % (20.0-45.0) Monocytes (%) (Auto) 9.6 % (1.0-10.0) Eosinophils (%) (Auto) 8.5 % (0.0-3.0) H Basophils (%) (Auto) 1.5 % (0.0-2.0) Sodium Level 140 MMOL/L (136-145) Potassium Level 3.8 MMOL/L (3.5-5.1) Chloride Level 104 MMOL/L (98-107) Carbon Dioxide Level 23 MMOL/L (21-32) Anion Gap 14 mmol/L (5-15) Blood Urea Nitrogen 19 mg/dL (7-18) H Creatinine 1.0 MG/DL (0.55-1.30) Estimat Glomerular Filtration Rate > 60 mL/min (>60) Glucose Level 113 MG/DL (74-106) H Calcium Level 9.0 MG/DL (8.5-10.1) Plan Problems: (1) Decubitus skin ulcer Assessment & Plan: Pt presented on admission with resolving skin lesionof unknown etiology medial R foot.[place] epithelial at base of wound (L)75%,25% moist and viable area. No odor or exudate noted. N0 erythema or fluctuance periwound. Non-blanching erythema without induration or fluctuance clefts of R and L Buttocks and sacrum.Additional Incontinence associated dermatitis noted to R and L buttocks perianal and scrotum. Erythema with scattered satellite lesions noted. Both heels are boggy with non-blanching erythema. Tx.Plan: Apply Moisture Barrier Paste to Sacrum,R and L buttocks. Cover Sacrum with Optifoam drsg. Change every 3 days and prn. Apply Cavilon Skin Barrier to Both heels. Cover each heel with Optifoam drsg. Change every 7 days and prn. Apply Betadine to medial R foot . Cover with Optifoam drsg. Change very 3 days and prn. Reposition at least every 2hours or as tolerated. Off-load heels with Pillow. APM/BOO Mattress overlay. DAILY ESTIMATED NEEDS: Needs based on Pulmonary 72.3kg abw 25-30 kcals/kg 1897-5332 total kcals 1.25-1.5 g protein/kg 90-108 g total protein 25-30 mL/kg 1217-5804 total fluid mLs NUTRITION DIAGNOSIS: Increased kcal and pro needs r/t wound healing as evidenced by R foot unstageable wound. (CURRENT DIET: Regular) PO DIET RECOMMENDATIONS: Rec diet change -->> LOW NA diet/ texture as tolerated. ADDITIONAL RECOMMENDATIONS: 1) Per SNF: 68inches tall, weighs 174lbs 2) Diet change as above, monitor po intake 3) Wound care (f/up w/ WC eval): add TUNG BID + Vit C 250mg daily 4) F/up w/ H&P (2) Hypertensive heart disease (3) COPD (chronic obstructive pulmonary disease) (4) Polyneuropathy (5) Psychosis (6) Suspected 2019 novel coronavirus infection Assessment & Plan: negative x2 d/c planning cont care upon d/c (7) Viral respiratory infection (8) Major depression Juan Michael Jan 30, 2020 17:36
[2020-01-30 20:00] VITALS: BP 130/94
[2020-01-31] VITALS: BP 127/78
[2020-01-31 04:00] VITALS: BP 129/74
[2020-01-31 08:00] VITALS: BP 133/75
[2020-01-31] MEDS: Theophylline ER 100mg ORAL SCH ×2 (08:37→20:12)
[2020-01-31] MEDS: Heparin 5000 units/ml inj SUBQ SCH ×2 (08:40→20:17)
[2020-01-31 09:56] LABS: BASOPHILS % (AUTO) 0.7 % (0.0-2.0); HEMATOCRIT 46.8 % (42.0-52.0); HEMOGLOBIN 16.9 G/DL (14.2-18.0); LYMPHOCYTES % (AUTO) 12.9 % (20.0-45.0); MEAN CORPUSCULAR VOLUME 86 FL (80-99); MONOCYTES % (AUTO) 7.5 % (1.0-10.0); NEUTROPHILS % (AUTO) 76.9 % (45.0-75.0); PLATELET COUNT 186 K/UL (150-450); RED BLOOD COUNT 5.41 M/UL (4.70-6.10); RED CELL DISTRIBUTION WIDTH 10.5 % (11.6-14.8); WHITE BLOOD COUNT 10.4 K/UL (4.8-10.8)
[2020-01-31 10:11] LABS: ANION GAP 8 mmol/L (5-15); BLOOD UREA NITROGEN 16 mg/dL (7-18); CALCIUM 9.4 MG/DL (8.5-10.1); CARBON DIOXIDE 27 MMOL/L (21-32); CHLORIDE 105 MMOL/L (98-107); CREATININE 0.8 MG/DL (0.55-1.30); POTASSIUM 3.5 MMOL/L (3.5-5.1); SODIUM 140 MMOL/L (136-145)
[2020-01-31 12:08] VITALS: BP 133/75
--- NOTE | 2020-01-31 12:23 | General Progress Note ---
Assessment/Plan Problem List: (1) Hypertensive heart disease ICD Codes: I11.9 - Hypertensive heart disease without heart failure SNOMED: 38886953 (2) COPD (chronic obstructive pulmonary disease) ICD Codes: J44.9 - Chronic obstructive pulmonary disease, unspecified SNOMED: 68071250 (3) Psychosis ICD Codes: F29 - Unspecified psychosis not due to a substance or known physiological condition SNOMED: 21356911 Status: stable, progressing Assessment/Plan: o2 pulm tx abx pt diet cbc bmp am dc if clear Subjective Constitutional: Reports: weakness Allergies: Coded Allergies: No Known Allergies (Unverified , 01/22/20) All Systems: reviewed and negative except above Subjective sleepy calm Objective Last 24 Hour Vital Signs Date Time Temp Pulse Resp B/P (MAP) Pulse Ox O2 Delivery O2 Flow Rate FiO2 01/31/20 12:08 98.9 96 19 133/75 (94) 98 01/31/20 08:45 Room Air 01/31/20 08:00 98.9 96 19 133/75 (94) 98 01/31/20 04:00 98.7 75 18 129/74 (92) 97 01/31/20 00:00 98.3 74 22 127/78 (94) 97 01/30/20 21:34 Room Air 01/30/20 20:00 98.9 75 21 130/94 (106) 98 01/30/20 16:00 98.2 64 20 118/72 (87) 97 64 Intake and Output 01/30/20 01/31/20 19:00 07:00 Intake Total 1460 ml 480 ml Output Total 600 ml 600 ml Balance 860 ml -120 ml Intake Oral 1460 ml 480 ml Output Urine Total 600 ml 600 ml Laboratory Tests 01/31/20 08:30: White Blood Count 10.4#, Red Blood Count 5.41, Hemoglobin 16.9, Hematocrit 46.8 , Mean Corpuscular Volume 86, Mean Corpuscular Hemoglobin 31.1H, Mean Corpuscular Hemoglobin Concent 36.0, Red Cell Distribution Width 10.5L, Platelet Count 186, Mean Platelet Volume 6.0L, Neutrophils (%) (Auto) 76.9H, Lymphocytes (%) (Auto) 12.9L, Monocytes (%) (Auto) 7.5, Eosinophils (%) (Auto) 2.0, Basophils (%) (Auto) 0.7, Sodium Level 140, Potassium Level 3.5, Chloride Level 105, Carbon Dioxide Level 27, Anion Gap 8, Blood Urea Nitrogen 16, Creatinine 0.8, Estimat Glomerular Filtration Rate > 60, Glucose Level 127H, Calcium Level 9.4 Height (Feet): 5 Height (Inches): 5.00 Weight (Pounds): 128 General Appearance: lethargic EENT: normal ENT inspection Neck: normal alignment Cardiovascular: normal peripheral pulses, normal rate, regular rhythm Respiratory/Chest: chest wall non-tender, lungs clear, normal breath sounds Abdomen: normal bowel sounds, non tender, soft Extremities: normal inspection Edema: no edema noted Arm (L), no edema noted Arm (R), no edema noted Leg (L), no edema noted Leg (R), no edema noted Pedal (L), no edema noted Pedal (R), no edema noted Generalized Neurologic: motor weakness Skin: normal pigmentation, warm/dry Panchito Gill DO Jan 31, 2020 12:23
--- NOTE | 2020-01-31 12:54 | Surgery Progress Note ---
Surgery Progress Note Subjective Additional Comments improved less shaking today Objective Last 24 Hour Vital Signs Date Time Temp Pulse Resp B/P (MAP) Pulse Ox O2 Delivery O2 Flow Rate FiO2 01/31/20 12:08 98.9 96 19 133/75 (94) 98 01/31/20 08:45 Room Air 01/31/20 08:00 98.9 96 19 133/75 (94) 98 01/31/20 04:00 98.7 75 18 129/74 (92) 97 01/31/20 00:00 98.3 74 22 127/78 (94) 97 01/30/20 21:34 Room Air 01/30/20 20:00 98.9 75 21 130/94 (106) 98 01/30/20 16:00 98.2 64 20 118/72 (87) 97 64 I&O Intake and Output 01/30/20 01/31/20 19:00 07:00 Intake Total 1460 ml 480 ml Output Total 600 ml 600 ml Balance 860 ml -120 ml Intake Oral 1460 ml 480 ml Output Urine Total 600 ml 600 ml Dressing: saturated Wound: clean Cardiovascular: RSR Respiratory: clear Abdomen: soft, non-tender, present bowel sounds Extremities: no cyanosis Laboratory Tests Test 01/31/20 08:30 White Blood Count 10.4 K/UL (4.8-10.8) # Red Blood Count 5.41 M/UL (4.70-6.10) Hemoglobin 16.9 G/DL (14.2-18.0) Hematocrit 46.8 % (42.0-52.0) Mean Corpuscular Volume 86 FL (80-99) Mean Corpuscular Hemoglobin 31.1 PG (27.0-31.0) H Mean Corpuscular Hemoglobin Concent 36.0 G/DL (32.0-36.0) Red Cell Distribution Width 10.5 % (11.6-14.8) L Platelet Count 186 K/UL (150-450) Mean Platelet Volume 6.0 FL (6.5-10.1) L Neutrophils (%) (Auto) 76.9 % (45.0-75.0) H Lymphocytes (%) (Auto) 12.9 % (20.0-45.0) L Monocytes (%) (Auto) 7.5 % (1.0-10.0) Eosinophils (%) (Auto) 2.0 % (0.0-3.0) Basophils (%) (Auto) 0.7 % (0.0-2.0) Sodium Level 140 MMOL/L (136-145) Potassium Level 3.5 MMOL/L (3.5-5.1) Chloride Level 105 MMOL/L (98-107) Carbon Dioxide Level 27 MMOL/L (21-32) Anion Gap 8 mmol/L (5-15) Blood Urea Nitrogen 16 mg/dL (7-18) Creatinine 0.8 MG/DL (0.55-1.30) Estimat Glomerular Filtration Rate > 60 mL/min (>60) Glucose Level 127 MG/DL (74-106) H Calcium Level 9.4 MG/DL (8.5-10.1) Plan Problems: (1) Decubitus skin ulcer Assessment & Plan: Pt presented on admission with resolving skin lesionof unknown etiology medial R foot.Hymera epithelial at base of wound (L)75%,25% moist and viable area. No odor or exudate noted. N0 erythema or fluctuance periwound. Non-blanching erythema without induration or fluctuance clefts of R and L Buttocks and sacrum.Additional Incontinence associated dermatitis noted to R and L buttocks perianal and scrotum. Erythema with scattered satellite lesions noted. Both heels are boggy with non-blanching erythema. Tx.Plan: Apply Moisture Barrier Paste to Sacrum,R and L buttocks. Cover Sacrum with Optifoam drsg. Change every 3 days and prn. Apply Cavilon Skin Barrier to Both heels. Cover each heel with Optifoam drsg. Change every 7 days and prn. Apply Betadine to medial R foot . Cover with Optifoam drsg. Change very 3 days and prn. Reposition at least every 2hours or as tolerated. Off-load heels with Pillow. APM/BOO Mattress overlay. DAILY ESTIMATED NEEDS: Needs based on Pulmonary 72.3kg abw 25-30 kcals/kg 5323-3390 total kcals 1.25-1.5 g protein/kg 90-108 g total protein 25-30 mL/kg 5311-7076 total fluid mLs NUTRITION DIAGNOSIS: Increased kcal and pro needs r/t wound healing as evidenced by R foot unstageable wound. (CURRENT DIET: Regular) PO DIET RECOMMENDATIONS: Rec diet change -->> LOW NA diet/ texture as tolerated. ADDITIONAL RECOMMENDATIONS: 1) Per SNF: 68inches tall, weighs 174lbs 2) Diet change as above, monitor po intake 3) Wound care (f/up w/ WC eval): add TUNG BID + Vit C 250mg daily 4) F/up w/ H&P (2) Hypertensive heart disease (3) COPD (chronic obstructive pulmonary disease) (4) Polyneuropathy (5) Psychosis (6) Suspected 2019 novel coronavirus infection Assessment & Plan: negative x2 d/c planning cont care upon d/c (7) Viral respiratory infection (8) Major depression Juan Michael Jan 31, 2020 12:54
--- NOTE | 2020-01-31 13:44 | Pulmonology Progress Note ---
Assessment/Plan Problems: (1) Viral respiratory infection (2) COPD (chronic obstructive pulmonary disease) (3) Hypertensive heart disease (4) Polyneuropathy (5) Psychosis (6) Major depression Assessment/Plan no new complains off abx covid 19 negative X TWO symptomatic treatment antitussives respiratory isolation dvt prophylaxis resume psychotic meds. dc planning Subjective Constitutional: Reports: no symptoms HEENT: Repors: no symptoms Respiratory: Reports: no symptoms Allergies: Coded Allergies: No Known Allergies (Unverified , 01/22/20) Objective Last 24 Hour Vital Signs Date Time Temp Pulse Resp B/P (MAP) Pulse Ox O2 Delivery O2 Flow Rate FiO2 01/31/20 12:08 98.9 96 19 133/75 (94) 98 01/31/20 08:45 Room Air 01/31/20 08:00 98.9 96 19 133/75 (94) 98 01/31/20 04:00 98.7 75 18 129/74 (92) 97 01/31/20 00:00 98.3 74 22 127/78 (94) 97 01/30/20 21:34 Room Air 01/30/20 20:00 98.9 75 21 130/94 (106) 98 01/30/20 16:00 98.2 64 20 118/72 (87) 97 64 Intake and Output 01/30/20 01/31/20 19:00 07:00 Intake Total 1460 ml 480 ml Output Total 600 ml 600 ml Balance 860 ml -120 ml Intake Oral 1460 ml 480 ml Output Urine Total 600 ml 600 ml Objective General Appearance: WD/WN HEENT: normocephalic, atraumatic Respiratory/Chest: chest wall non-tender, lungs clear Cardiovascular: normal peripheral pulses, normal rate Abdomen: normal bowel sounds, soft, non tender Genitourinary: normal external genitalia Extremities: no clubbing 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, no motor/sensory deficits Lymphatic: no neck adenopathy Laboratory Tests 01/31/20 08:30: White Blood Count 10.4#, Red Blood Count 5.41, Hemoglobin 16.9, Hematocrit 46.8 , Mean Corpuscular Volume 86, Mean Corpuscular Hemoglobin 31.1H, Mean Corpuscular Hemoglobin Concent 36.0, Red Cell Distribution Width 10.5L, Platelet Count 186, Mean Platelet Volume 6.0L, Neutrophils (%) (Auto) 76.9H, Lymphocytes (%) (Auto) 12.9L, Monocytes (%) (Auto) 7.5, Eosinophils (%) (Auto) 2.0, Basophils (%) (Auto) 0.7, Sodium Level 140, Potassium Level 3.5, Chloride Level 105, Carbon Dioxide Level 27, Anion Gap 8, Blood Urea Nitrogen 16, Creatinine 0.8, Estimat Glomerular Filtration Rate > 60, Glucose Level 127H, Calcium Level 9.4 Current Medications Medications (Trade) Dose Ordered Sig/Alex Route PRN Reason Start Time Stop Time Status Last Admin Dose Admin Dextrose (Dextrose 50%) 25 ml Q30M PRN IV Hypoglycemia 01/27/20 16:34 04/21/20 16:33 Dextrose (Dextrose 50%) 50 ml Q30M PRN IV Hypoglycemia 01/27/20 16:45 04/21/20 21:14 Heparin Sodium (Porcine) (Heparin 5000 units/ml) 5,000 units EVERY 12 HOURS SUBQ 01/27/20 21:00 03/08/20 08:59 01/31/20 08:40 Ondansetron HCl (Zofran) 4 mg Q6H PRN IVP Nausea & Vomiting 01/27/20 16:35 02/21/20 16:34 Promethazine HCl/ Codeine (Phenergan with Codeine) 5 ml Q6H PRN ORAL cough 01/27/20 16:36 02/21/20 16:35 01/28/20 21:20 Theophylline (Michael-Dur) 100 mg EVERY 12 HOURS ORAL 01/27/20 21:00 04/22/20 08:59 01/31/20 08:37 Olimpia Beck MD Jan 31, 2020 13:44
[2020-01-31 16:00] VITALS: BP 146/94
[2020-01-31 20:00] VITALS: BP 154/103
--- NOTE | 2020-01-31 21:12 | Infectious Diseases Prog Note ---
Assessment/Plan Assessment/Plan Fever 101.5 at NH, SP RA Normal leukocytosis CXR: no acute disease flu swab negative SARS-CoV PCR negative x2 r/o viral pneumonia Unlikely UTI UA negative COPD HTN Tobacco abuse Schizophrenia Plan: monitor off abx 01/29 SP zosyn # 8 01/21 SP cefepime and flagyl DC COVID-19 iso monitor temp and CBC monitor resp status DW RN Thank you for this consult. Subjective Allergies: Coded Allergies: No Known Allergies (Unverified , 01/22/20) Subjective Afebrile. on RA. nonverbal no acute distress Objective Vital Signs Last 24 Hour Vital Signs Date Time Temp Pulse Resp B/P (MAP) Pulse Ox O2 Delivery O2 Flow Rate FiO2 01/31/20 16:00 98.5 97 18 146/94 (111) 98 01/31/20 12:08 98.9 96 19 133/75 (94) 98 01/31/20 08:45 Room Air 01/31/20 08:00 98.9 96 19 133/75 (94) 98 01/31/20 04:00 98.7 75 18 129/74 (92) 97 01/31/20 00:00 98.3 74 22 127/78 (94) 97 01/30/20 21:34 Room Air Height (Feet): 5 Height (Inches): 5.00 Weight (Pounds): 128 Objective Gen: NAD. well nourished. CV: RRR. S1+S2. Resp: RRR.CTAB. no crackles Abd: soft. no TTP. Skin: warm. dry. no rash Neuro: alert. makes wishes known Laboratory Tests Test 01/31/20 08:30 White Blood Count 10.4 K/UL (4.8-10.8) # Red Blood Count 5.41 M/UL (4.70-6.10) Hemoglobin 16.9 G/DL (14.2-18.0) Hematocrit 46.8 % (42.0-52.0) Mean Corpuscular Volume 86 FL (80-99) Mean Corpuscular Hemoglobin 31.1 PG (27.0-31.0) H Mean Corpuscular Hemoglobin Concent 36.0 G/DL (32.0-36.0) Red Cell Distribution Width 10.5 % (11.6-14.8) L Platelet Count 186 K/UL (150-450) Mean Platelet Volume 6.0 FL (6.5-10.1) L Neutrophils (%) (Auto) 76.9 % (45.0-75.0) H Lymphocytes (%) (Auto) 12.9 % (20.0-45.0) L Monocytes (%) (Auto) 7.5 % (1.0-10.0) Eosinophils (%) (Auto) 2.0 % (0.0-3.0) Basophils (%) (Auto) 0.7 % (0.0-2.0) Sodium Level 140 MMOL/L (136-145) Potassium Level 3.5 MMOL/L (3.5-5.1) Chloride Level 105 MMOL/L (98-107) Carbon Dioxide Level 27 MMOL/L (21-32) Anion Gap 8 mmol/L (5-15) Blood Urea Nitrogen 16 mg/dL (7-18) Creatinine 0.8 MG/DL (0.55-1.30) Estimat Glomerular Filtration Rate > 60 mL/min (>60) Glucose Level 127 MG/DL (74-106) H Calcium Level 9.4 MG/DL (8.5-10.1) Current Medications Medications (Trade) Dose Ordered Sig/Alex Route PRN Reason Start Time Stop Time Status Last Admin Dose Admin Dextrose (Dextrose 50%) 25 ml Q30M PRN IV Hypoglycemia 01/27/20 16:34 04/21/20 16:33 Dextrose (Dextrose 50%) 50 ml Q30M PRN IV Hypoglycemia 01/27/20 16:45 04/21/20 21:14 Gabapentin (Neurontin) 300 mg THREE TIMES A DAY ORAL 01/31/20 18:00 03/01/20 17:59 01/31/20 17:09 Heparin Sodium (Porcine) (Heparin 5000 units/ml) 5,000 units EVERY 12 HOURS SUBQ 01/27/20 21:00 03/08/20 08:59 01/31/20 20:17 Mirtazapine (Remeron) 15 mg BEDTIME ORAL 01/31/20 21:00 04/30/20 20:59 01/31/20 20:13 Ondansetron HCl (Zofran) 4 mg Q6H PRN IVP Nausea & Vomiting 01/27/20 16:35 02/21/20 16:34 Promethazine HCl/ Codeine (Phenergan with Codeine) 5 ml Q6H PRN ORAL cough 01/27/20 16:36 02/21/20 16:35 01/28/20 21:20 Risperidone (RisperDAL) 1 mg BEDTIME ORAL 01/31/20 21:00 03/16/20 20:59 01/31/20 20:12 Theophylline (Michael-Dur) 100 mg EVERY 12 HOURS ORAL 01/27/20 21:00 04/22/20 08:59 01/31/20 20:12 Dwayne Mejia MD Jan 31, 2020 21:12
--- NOTE | 2020-01-31 23:45 | Consultation ---
DATE OF CONSULTATION: 01/31/2020 HISTORY OF PRESENT ILLNESS: This is a 59-year-old male patient. The patient was admitted to the hospital secondary to COPD exacerbation, fever, rule out COVID. increased cough and low-grade fever. He is still confused and disorganized. He has got mood lability, also has history of paranoid schizophrenia, and currently on Remeron for depression as well. PAST MEDICAL HISTORY: COPD, hypertension, neuropathy, and weakness. ALLERGIES: No known drug allergies. MEDICATIONS: Psychotropic medications on admission, the patient does have a history of being on Remeron 15 mg at bedtime in the past as well as Neurontin 300 mg three times a day. SUBSTANCE ABUSE HISTORY: Denies. FAMILY PSYCHIATRIC HISTORY: Denies. PAIN ASSESSMENT: 0/10 pain. DEVELOPMENT PROBLEMS: Denies. SOCIAL HISTORY: This is a 59-year-old male. His appearance is disheveled. Attitude, irritable and agitated. Affect, guarded and restricted. Intellect poor. Mood, depressed and anxious. Motor activity, psychomotor agitation. Attention span is poor. Orientation x2. Speech is low volume, slurred. Thought process, disorganized and illogical. Insight and judgment is poor. DIAGNOSIS: Major depressive disorder, mild, recurrent with psychotic features. PLAN: For this patient is to treat him with Remeron 15 mg at bedtime for depression and insomnia and then also Neurontin at a dose of 300 mg three times a day to reduce anxiety and also treat this patient with a medication regimen of Risperdal at a dose of 1 mg at bedtime. Chart reviewed. Discussed with staff. Seen and assessed at bedside. I encouraged him to interact appropriately with staff and other patients. 20 minutes of psychotherapy provided. I would like to thank Dr. Panchito Gill for this interesting consultation. Russell Roca M.D. DR: Urbano JOB#: [id number] CC:
[2020-02-01] VITALS: BP 121/84
[2020-02-01 04:00] VITALS: BP 120/82
[2020-02-01 06:34] LABS: ANION GAP 8 mmol/L (5-15); BLOOD UREA NITROGEN 17 mg/dL (7-18); CALCIUM 9.5 MG/DL (8.5-10.1); CARBON DIOXIDE 29 MMOL/L (21-32); CHLORIDE 104 MMOL/L (98-107); CREATININE 1.1 MG/DL (0.55-1.30); POTASSIUM 3.8 MMOL/L (3.5-5.1); SODIUM 141 MMOL/L (136-145)
[2020-02-01 06:36] LABS: BASOPHILS % (AUTO) 0.8 % (0.0-2.0); EOSINOPHILS % (AUTO) 3.4 % (0.0-3.0); HEMATOCRIT 49.8 % (42.0-52.0); HEMOGLOBIN 17.5 G/DL (14.2-18.0); LYMPHOCYTES % (AUTO) 24.3 % (20.0-45.0); MEAN CORPUSCULAR VOLUME 88 FL (80-99); MONOCYTES % (AUTO) 9.8 % (1.0-10.0); NEUTROPHILS % (AUTO) 61.7 % (45.0-75.0); PLATELET COUNT 181 K/UL (150-450); RED BLOOD COUNT 5.68 M/UL (4.70-6.10); RED CELL DISTRIBUTION WIDTH 10.8 % (11.6-14.8); WHITE BLOOD COUNT 9.6 K/UL (4.8-10.8)
--- NOTE | 2020-02-01 07:47 | Infectious Diseases Prog Note ---
Assessment/Plan Assessment/Plan Fever 101.5 at NH, SP RA Normal leukocytosis CXR: no acute disease (but imaging can lag). SP empiric rx for PNA. flu swab negative SARS-CoV PCR negative x2 Unlikely UTI UA negative COPD HTN Tobacco abuse Schizophrenia Plan: monitor off abx 01/29 SP zosyn # 8 01/21 SP cefepime and flagyl DC COVID-19 iso monitor temp and CBC monitor resp status DW RN Thank you for this consult. Subjective Allergies: Coded Allergies: No Known Allergies (Unverified , 01/22/20) Subjective Afebrile. on RA. today he is answering questions. denies chills or cough or sob Objective Vital Signs Last 24 Hour Vital Signs Date Time Temp Pulse Resp B/P (MAP) Pulse Ox O2 Delivery O2 Flow Rate FiO2 02/01/20 04:00 98.0 105 21 120/82 (95) 95 02/01/20 00:00 98.4 99 22 121/84 (96) 96 01/31/20 20:59 Room Air 01/31/20 20:00 99.3 109 20 154/103 (120) 95 01/31/20 16:00 98.5 97 18 146/94 (111) 98 01/31/20 12:08 98.9 96 19 133/75 (94) 98 01/31/20 08:45 Room Air 01/31/20 08:00 98.9 96 19 133/75 (94) 98 Height (Feet): 5 Height (Inches): 5.00 Weight (Pounds): 192 Objective Gen: NAD. well nourished. CV: RRR. S1+S2. Resp: RRR.CTAB. no crackles Abd: soft. no TTP. Skin: warm. dry. no rash Neuro: alert. makes wishes known Laboratory Tests Test 01/31/20 08:30 02/01/20 05:45 White Blood Count 10.4 K/UL (4.8-10.8) # 9.6 K/UL (4.8-10.8) Red Blood Count 5.41 M/UL (4.70-6.10) 5.68 M/UL (4.70-6.10) Hemoglobin 16.9 G/DL (14.2-18.0) 17.5 G/DL (14.2-18.0) Hematocrit 46.8 % (42.0-52.0) 49.8 % (42.0-52.0) Mean Corpuscular Volume 86 FL (80-99) 88 FL (80-99) Mean Corpuscular Hemoglobin 31.1 PG (27.0-31.0) H 30.8 PG (27.0-31.0) Mean Corpuscular Hemoglobin Concent 36.0 G/DL (32.0-36.0) 35.2 G/DL (32.0-36.0) Red Cell Distribution Width 10.5 % (11.6-14.8) L 10.8 % (11.6-14.8) L Platelet Count 186 K/UL (150-450) 181 K/UL (150-450) Mean Platelet Volume 6.0 FL (6.5-10.1) L 6.2 FL (6.5-10.1) L Neutrophils (%) (Auto) 76.9 % (45.0-75.0) H 61.7 % (45.0-75.0) Lymphocytes (%) (Auto) 12.9 % (20.0-45.0) L 24.3 % (20.0-45.0) Monocytes (%) (Auto) 7.5 % (1.0-10.0) 9.8 % (1.0-10.0) Eosinophils (%) (Auto) 2.0 % (0.0-3.0) 3.4 % (0.0-3.0) H Basophils (%) (Auto) 0.7 % (0.0-2.0) 0.8 % (0.0-2.0) Sodium Level 140 MMOL/L (136-145) 141 MMOL/L (136-145) Potassium Level 3.5 MMOL/L (3.5-5.1) 3.8 MMOL/L (3.5-5.1) Chloride Level 105 MMOL/L (98-107) 104 MMOL/L (98-107) Carbon Dioxide Level 27 MMOL/L (21-32) 29 MMOL/L (21-32) Anion Gap 8 mmol/L (5-15) 8 mmol/L (5-15) Blood Urea Nitrogen 16 mg/dL (7-18) 17 mg/dL (7-18) Creatinine 0.8 MG/DL (0.55-1.30) 1.1 MG/DL (0.55-1.30) Estimat Glomerular Filtration Rate > 60 mL/min (>60) > 60 mL/min (>60) Glucose Level 127 MG/DL (74-106) H 106 MG/DL (74-106) Calcium Level 9.4 MG/DL (8.5-10.1) 9.5 MG/DL (8.5-10.1) Current Medications Medications (Trade) Dose Ordered Sig/Alex Route PRN Reason Start Time Stop Time Status Last Admin Dose Admin Dextrose (Dextrose 50%) 25 ml Q30M PRN IV Hypoglycemia 01/27/20 16:34 04/21/20 16:33 Dextrose (Dextrose 50%) 50 ml Q30M PRN IV Hypoglycemia 01/27/20 16:45 04/21/20 21:14 Gabapentin (Neurontin) 300 mg THREE TIMES A DAY ORAL 01/31/20 18:00 03/01/20 17:59 01/31/20 17:09 Heparin Sodium (Porcine) (Heparin 5000 units/ml) 5,000 units EVERY 12 HOURS SUBQ 01/27/20 21:00 03/08/20 08:59 01/31/20 20:17 Mirtazapine (Remeron) 15 mg BEDTIME ORAL 01/31/20 21:00 04/30/20 20:59 01/31/20 20:13 Ondansetron HCl (Zofran) 4 mg Q6H PRN IVP Nausea & Vomiting 01/27/20 16:35 02/21/20 16:34 Promethazine HCl/ Codeine (Phenergan with Codeine) 5 ml Q6H PRN ORAL cough 01/27/20 16:36 02/21/20 16:35 01/28/20 21:20 Risperidone (RisperDAL) 1 mg BEDTIME ORAL 01/31/20 21:00 03/16/20 20:59 01/31/20 20:12 Theophylline (Michael-Dur) 100 mg EVERY 12 HOURS ORAL 01/27/20 21:00 04/22/20 08:59 01/31/20 20:12 Dwayne Mejia MD Feb 01, 2020 07:47
[2020-02-01 08:00] VITALS: BP 119/78
--- NOTE | 2020-02-01 09:11 | General Progress Note ---
Assessment/Plan Problem List: (1) Hypertensive heart disease ICD Codes: I11.9 - Hypertensive heart disease without heart failure SNOMED: 79035357 (2) COPD (chronic obstructive pulmonary disease) ICD Codes: J44.9 - Chronic obstructive pulmonary disease, unspecified SNOMED: 48525488 (3) Psychosis ICD Codes: F29 - Unspecified psychosis not due to a substance or known physiological condition SNOMED: 37123237 Status: stable, progressing Assessment/Plan: o2 pulm tx abx pt diet cbc bmp am dc if clear Subjective Constitutional: Reports: weakness Allergies: Coded Allergies: No Known Allergies (Unverified , 01/22/20) All Systems: reviewed and negative except above Subjective sleepy calm Objective Last 24 Hour Vital Signs Date Time Temp Pulse Resp B/P (MAP) Pulse Ox O2 Delivery O2 Flow Rate FiO2 02/01/20 04:00 98.0 105 21 120/82 (95) 95 02/01/20 00:00 98.4 99 22 121/84 (96) 96 01/31/20 20:59 Room Air 01/31/20 20:00 99.3 109 20 154/103 (120) 95 01/31/20 16:00 98.5 97 18 146/94 (111) 98 01/31/20 12:08 98.9 96 19 133/75 (94) 98 Intake and Output 01/31/20 02/01/20 19:00 07:00 # Voids 3 2 # Bowel Movements 1 1 Laboratory Tests 02/01/20 05:45: White Blood Count 9.6, Red Blood Count 5.68, Hemoglobin 17.5, Hematocrit 49.8, Mean Corpuscular Volume 88, Mean Corpuscular Hemoglobin 30.8, Mean Corpuscular Hemoglobin Concent 35.2, Red Cell Distribution Width 10.8L, Platelet Count 181, Mean Platelet Volume 6.2L, Neutrophils (%) (Auto) 61.7, Lymphocytes (%) (Auto) 24.3, Monocytes (%) (Auto) 9.8, Eosinophils (%) (Auto) 3.4H, Basophils (%) (Auto ) 0.8, Sodium Level 141, Potassium Level 3.8, Chloride Level 104, Carbon Dioxide Level 29, Anion Gap 8, Blood Urea Nitrogen 17, Creatinine 1.1, Estimat Glomerular Filtration Rate > 60, Glucose Level 106, Calcium Level 9.5 Height (Feet): 5 Height (Inches): 5.00 Weight (Pounds): 192 General Appearance: lethargic EENT: normal ENT inspection Neck: normal alignment Cardiovascular: normal peripheral pulses, normal rate, regular rhythm Respiratory/Chest: chest wall non-tender, lungs clear, normal breath sounds Abdomen: normal bowel sounds, non tender, soft Extremities: normal inspection Edema: no edema noted Arm (L), no edema noted Arm (R), no edema noted Leg (L), no edema noted Leg (R), no edema noted Pedal (L), no edema noted Pedal (R), no edema noted Generalized Neurologic: motor weakness Skin: normal pigmentation, warm/dry Panchito iGll DO Feb 01, 2020 09:11
[2020-02-01] MEDS: Theophylline ER 100mg ORAL SCH (09:16)
[2020-02-01] MEDS: Heparin 5000 units/ml inj SUBQ SCH (09:17)
[2020-02-01 12:00] VITALS: BP 118/75
--- NOTE | 2020-02-01 12:28 | Pulmonology Progress Note ---
Assessment/Plan Problems: (1) Viral respiratory infection (2) COPD (chronic obstructive pulmonary disease) (3) Hypertensive heart disease (4) Polyneuropathy (5) Psychosis (6) Major depression Assessment/Plan doing better no new complains off abx covid 19 negative X TWO symptomatic treatment antitussives respiratory isolation dvt prophylaxis resume psychotic meds. dc planning Subjective ROS Limited/Unobtainable: No Constitutional: Reports: no symptoms HEENT: Repors: no symptoms Respiratory: Reports: no symptoms Allergies: Coded Allergies: No Known Allergies (Unverified , 01/22/20) Objective Last 24 Hour Vital Signs Date Time Temp Pulse Resp B/P (MAP) Pulse Ox O2 Delivery O2 Flow Rate FiO2 02/01/20 08:00 97.7 76 20 119/78 (92) 94 02/01/20 04:00 98.0 105 21 120/82 (95) 95 02/01/20 00:00 98.4 99 22 121/84 (96) 96 01/31/20 20:59 Room Air 01/31/20 20:00 99.3 109 20 154/103 (120) 95 01/31/20 16:00 98.5 97 18 146/94 (111) 98 Intake and Output 01/31/20 02/01/20 19:00 07:00 # Voids 3 2 # Bowel Movements 1 1 Objective General Appearance: WD/WN HEENT: normocephalic, atraumatic Respiratory/Chest: chest wall non-tender, lungs clear Cardiovascular: normal peripheral pulses, normal rate Abdomen: normal bowel sounds, soft, non tender Genitourinary: normal external genitalia Extremities: no clubbing 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: parquet floor layer II-XII grossly normal, no motor/sensory deficits Lymphatic: no neck adenopathy Laboratory Tests 02/01/20 05:45: White Blood Count 9.6, Red Blood Count 5.68, Hemoglobin 17.5, Hematocrit 49.8, Mean Corpuscular Volume 88, Mean Corpuscular Hemoglobin 30.8, Mean Corpuscular Hemoglobin Concent 35.2, Red Cell Distribution Width 10.8L, Platelet Count 181, Mean Platelet Volume 6.2L, Neutrophils (%) (Auto) 61.7, Lymphocytes (%) (Auto) 24.3, Monocytes (%) (Auto) 9.8, Eosinophils (%) (Auto) 3.4H, Basophils (%) (Auto ) 0.8, Sodium Level 141, Potassium Level 3.8, Chloride Level 104, Carbon Dioxide Level 29, Anion Gap 8, Blood Urea Nitrogen 17, Creatinine 1.1, Estimat Glomerular Filtration Rate > 60, Glucose Level 106, Calcium Level 9.5 Current Medications Medications (Trade) Dose Ordered Sig/Alex Route PRN Reason Start Time Stop Time Status Last Admin Dose Admin Dextrose (Dextrose 50%) 25 ml Q30M PRN IV Hypoglycemia 01/27/20 16:34 04/21/20 16:33 Dextrose (Dextrose 50%) 50 ml Q30M PRN IV Hypoglycemia 01/27/20 16:45 04/21/20 21:14 Gabapentin (Neurontin) 300 mg THREE TIMES A DAY ORAL 01/31/20 18:00 03/01/20 17:59 02/01/20 09:16 Heparin Sodium (Porcine) (Heparin 5000 units/ml) 5,000 units EVERY 12 HOURS SUBQ 01/27/20 21:00 03/08/20 08:59 02/01/20 09:17 Mirtazapine (Remeron) 15 mg BEDTIME ORAL 01/31/20 21:00 04/30/20 20:59 01/31/20 20:13 Ondansetron HCl (Zofran) 4 mg Q6H PRN IVP Nausea & Vomiting 01/27/20 16:35 02/21/20 16:34 Promethazine HCl/ Codeine (Phenergan with Codeine) 5 ml Q6H PRN ORAL cough 01/27/20 16:36 02/21/20 16:35 01/28/20 21:20 Risperidone (RisperDAL) 1 mg BEDTIME ORAL 01/31/20 21:00 03/16/20 20:59 01/31/20 20:12 Theophylline (Michael-Dur) 100 mg EVERY 12 HOURS ORAL 01/27/20 21:00 04/22/20 08:59 02/01/20 09:16 Olimpia Beck MD Feb 01, 2020 12:28
--- NOTE | 2020-02-01 15:22 | Surgery Progress Note ---
Surgery Progress Note Subjective Additional Comments no acute events stable d/c planning Objective Last 24 Hour Vital Signs Date Time Temp Pulse Resp B/P (MAP) Pulse Ox O2 Delivery O2 Flow Rate FiO2 02/01/20 12:00 97.2 92 20 118/75 (89) 96 02/01/20 08:00 97.7 76 20 119/78 (92) 94 02/01/20 04:00 98.0 105 21 120/82 (95) 95 02/01/20 00:00 98.4 99 22 121/84 (96) 96 01/31/20 20:59 Room Air 01/31/20 20:00 99.3 109 20 154/103 (120) 95 01/31/20 16:00 98.5 97 18 146/94 (111) 98 I&O Intake and Output 01/31/20 02/01/20 19:00 07:00 # Voids 3 2 # Bowel Movements 1 1 Dressing: other Wound: other Drains: other Cardiovascular: RSR Respiratory: decreased breath sounds Abdomen: soft, non-tender, present bowel sounds Extremities: no tenderness, no cyanosis Laboratory Tests Test 02/01/20 05:45 White Blood Count 9.6 K/UL (4.8-10.8) Red Blood Count 5.68 M/UL (4.70-6.10) Hemoglobin 17.5 G/DL (14.2-18.0) Hematocrit 49.8 % (42.0-52.0) Mean Corpuscular Volume 88 FL (80-99) Mean Corpuscular Hemoglobin 30.8 PG (27.0-31.0) Mean Corpuscular Hemoglobin Concent 35.2 G/DL (32.0-36.0) Red Cell Distribution Width 10.8 % (11.6-14.8) L Platelet Count 181 K/UL (150-450) Mean Platelet Volume 6.2 FL (6.5-10.1) L Neutrophils (%) (Auto) 61.7 % (45.0-75.0) Lymphocytes (%) (Auto) 24.3 % (20.0-45.0) Monocytes (%) (Auto) 9.8 % (1.0-10.0) Eosinophils (%) (Auto) 3.4 % (0.0-3.0) H Basophils (%) (Auto) 0.8 % (0.0-2.0) Sodium Level 141 MMOL/L (136-145) Potassium Level 3.8 MMOL/L (3.5-5.1) Chloride Level 104 MMOL/L (98-107) Carbon Dioxide Level 29 MMOL/L (21-32) Anion Gap 8 mmol/L (5-15) Blood Urea Nitrogen 17 mg/dL (7-18) Creatinine 1.1 MG/DL (0.55-1.30) Estimat Glomerular Filtration Rate > 60 mL/min (>60) Glucose Level 106 MG/DL (74-106) Calcium Level 9.5 MG/DL (8.5-10.1) Plan Problems: (1) Decubitus skin ulcer Assessment & Plan: Pt presented on admission with resolving skin lesionof unknown etiology medial R foot.Cactus epithelial at base of wound (L)75%,25% moist and viable area. No odor or exudate noted. N0 erythema or fluctuance periwound. Non-blanching erythema without induration or fluctuance clefts of R and L Buttocks and sacrum.Additional Incontinence associated dermatitis noted to R and L buttocks perianal and scrotum. Erythema with scattered satellite lesions noted. Both heels are boggy with non-blanching erythema. Tx.Plan: Apply Moisture Barrier Paste to Sacrum,R and L buttocks. Cover Sacrum with Optifoam drsg. Change every 3 days and prn. Apply Cavilon Skin Barrier to Both heels. Cover each heel with Optifoam drsg. Change every 7 days and prn. Apply Betadine to medial R foot . Cover with Optifoam drsg. Change very 3 days and prn. Reposition at least every 2hours or as tolerated. Off-load heels with Pillow. APM/BOO Mattress overlay. DAILY ESTIMATED NEEDS: Needs based on Pulmonary 72.3kg abw 25-30 kcals/kg 8480-5115 total kcals 1.25-1.5 g protein/kg 90-108 g total protein 25-30 mL/kg 5174-6490 total fluid mLs NUTRITION DIAGNOSIS: Increased kcal and pro needs r/t wound healing as evidenced by R foot unstageable wound. (CURRENT DIET: Regular) PO DIET RECOMMENDATIONS: Rec diet change -->> LOW NA diet/ texture as tolerated. ADDITIONAL RECOMMENDATIONS: 1) Per SNF: 68inches tall, weighs 174lbs 2) Diet change as above, monitor po intake 3) Wound care (f/up w/ WC eval): add TUNG BID + Vit C 250mg daily 4) F/up w/ H&P (2) Hypertensive heart disease (3) COPD (chronic obstructive pulmonary disease) (4) Polyneuropathy (5) Psychosis (6) Suspected 2019 novel coronavirus infection Assessment & Plan: negative x2 d/c planning cont care upon d/c (7) Viral respiratory infection (8) Major depression Juan Michael Feb 01, 2020 15:22
--- NOTE | 2020-02-03 15:30 | Discharge Summary ---
Discharge Summary Discharge Summary _ DATE OF ADMISSION: 01/22/2020 DATE OF DISCHARGE: 02/01/2020 DISCHARGED BY: Dr. Gill REASON FOR ADMISSION: 59 years old male, resident of senior living facility, with past medical history of hypertension, COPD, psychosis, presented with a cough and difficulty breathing. Cough reported as nonproductive. No fever or chills. Upon evaluation patient was tachycardic and tachypneic. Pulse oximetry was 92% on room air. Patient was afebrile. Laboratory work-up revealed WBC 10.3, stable hemoglobin, hematocrit and platelet count. Stable electrolytes. BUN 27, creatinine 1.0. Glucose 102. Lactic acid 0.5. Troponin negative. EKG revealed sinus rhythm, no acute ischemic changes. Urinalysis revealed no evidence of urinary tract infection. Chest x-ray demonstrated no acute cardiopulmonary pathology. Influenza screen was negative. Patient was suspected of having COVID 19 infection. Patient was tested for COVID 19 by PCR and admitted to isolation room for further management. CONSULTANTS: pulmonary Dr. Beck ID specialist Dr. Thomas Lai. surgery Dr. Michael psychiatrist Dr. Roca [facility]: Patient admitted and was kept on isolation . Supplemental oxygen provided and titrated to keep pulse oximetry above 92%. Nebulizing treatment with bronchodilator provided. Antitussive provided as needed. Patient exhibited intermittent fevers. Patient started on empiric antibiotic as per ID specialist recommendation. Blood cultures were negative. COVID 19 , tested upon admission , was not detected. Patient was retested for COVID 19 on 01/25 due to persistent respiratory symptoms , which came back negative as well. Antibiotics provided as per ID specialist recommendation. Patient completed treatment with antibiotics while n the hospital. No leukocytosis , fevers resolved. DVT prophylaxis provided. Patient presented on admission with resolving skin lesions of unknown etiology. Wound care provided as per surgeon recommendation. Continue wound care at the facility. Psychiatrist seen and evaluated patient. Psychiatric medication regimen was optimized as per psychiatrist. Supportive care provided. Patient clinically stabilized and was ready for transfer back to senior living facility. Prior to discharge no fever no leukocytosis, pulse oximetry stable on room air. FINAL DIAGNOSES: Viral respiratory infection Suspected COVID 19 infection - was ruled out x2 COPD Hypertensive heart disease Polyneuropathy Major depressive disorder, mild, recurrent with psychotic features Tobacco abuse Decubitus skin ulcer, present on admission DISCHARGE MEDICATIONS: See Medication Reconciliation list. DISCHARGE INSTRUCTIONS: Patient was discharged to the senior living facility. Follow up with medical doctor at the facility. I have been assigned to dictate discharge summary for this account. I was not involved in the patient's management. Yessi Stevens NP Feb 03, 2020 15:30
== END 2020-02-01 18:44 | DRG 144 ==
LOC: EDBD 18:52 → EMR 19:20 → 2W 20:26 → EDBEDREQ 01-23 15:26 → 2W 01-23 20:44 → 4E 01-27 16:31
DX: J98.8 Other specified respiratory disorders (principal); G62.9 Polyneuropathy, unspecified; J44.9 Chronic obstructive pulmonary disease, unspecified; I11.9 Hypertensive heart disease without heart failure; F33.0 Major depressive disorder, recurrent, mild; F17.200 Nicotine dependence, unspecified, uncomplicated; L89.90 Pressure ulcer of unspecified site, unspecified stage; F20.9 Schizophrenia, unspecified; F29 Unspecified psychosis not due to a substance or known physiological condition
CPT/HCPCS: 36415; 71045; 80048; 80053; 81003; 82550; 82553; 83605; 83735; 84100; 84484; 85025; 85651; 86140; 86710; 87040; 87081; 87635; 93005; 96365; 96368; 96372; 99284